=== PATIENT | male | born 1950 | race Caucasian/White ===

== ENCOUNTER 2017-12-08 13:28 | Inpatient (IN) | payer MEDICARE, BC, OTHER ==
[2017-12-08] MEDS ORDERED: SODIUM CHLORIDE 0.9% 1,000 ML IV STA ×2 (13:42→16:02)
[2017-12-08] MEDS ORDERED: ONDANSETRON 4 MG/2 ML VIAL IVP STA (13:42)
--- NOTE | 2017-12-08 13:51 | ED ---
General Adult HPI <Humble Forbes - Last Filed: 12/08/17 16:06> - General Source: patient, RN notes reviewed Mode of arrival: ambulatory Limitations: no limitations <Donaldo Nuñez - Last Filed: 12/08/17 17:54> - General Chief complaint: Abdominal Pain Stated complaint: Abd pain Time Seen by Provider: 12/08/17 13:36 - History of Present Illness Initial comments: Patient is 66-year-old male who presents emergency room today with a chief complaint of abdominal pain over the last 3 days. He does admit that he began having symptoms of nausea vomiting diarrhea this morning. Patient does admit to cramping type pain in the abdomen like comes and goes. Patient denies any other complaints or symptoms. Patient denies any recent fever, chills, shortness of breath, chest pain, back pain, numbness or tingling, dysuria or hematuria, constipation, headaches or visual changes, or any other complaints. ( Donaldo Nuñez) - Related Data Home Medications Medication Instructions Recorded Confirmed Atorvastatin [Lipitor] 10 mg PO DAILY 12/08/17 12/08/17 Liraglutide [Victoza 3-Jamey] 1.8 mg SQ DAILY 12/08/17 12/08/17 Losartan Potassium [Cozaar] 25 mg PO DAILY 12/08/17 12/08/17 Omeprazole 20 mg PO DAILY 12/08/17 12/08/17 Repaglinide [Prandin] 0.5 mg PO BID@1200,1800 12/08/17 12/08/17 metFORMIN HCL [Glucophage] 1,000 mg PO BID 12/08/17 12/08/17 Allergies Allergy/AdvReac Type Severity Reaction Status Date / Time clarithromycin [From Biaxin] Allergy Unknown Verified 12/08/17 13:57 Sulfa (Sulfonamide Allergy Unknown Verified 12/08/17 13:57 Antibiotics) Review of Systems ROS Other: All systems not noted in ROS Statement are negative. <Humble Forbes - Last Filed: 12/08/17 16:06> ROS Other: All systems not noted in ROS Statement are negative. <Donaldo Nuñez - Last Filed: 12/08/17 17:54> ROS Statement: Those systems with pertinent positive or pertinent negative responses have been documented in the HPI. Past Medical History Past Medical History: Diabetes Mellitus Additional Past Medical History / Comment(s): back pain History of Any Multi-Drug Resistant Organisms: None Reported Past Psychological History: No Psychological Hx Reported Smoking Status: Never smoker Past Alcohol Use History: None Reported Past Drug Use History: None Reported <NuñezDonaldo - Last Filed: 12/08/17 17:54> General Exam <Humble Forbes - Last Filed: 12/08/17 16:06> Limitations: no limitations <Taniya Nuñezony - Last Filed: 12/08/17 17:54> - General Exam Comments Initial Comments: General: The patient is awake and alert, in no distress, and does not appear acutely ill. Eye: Pupils are equal, round and reactive to light, extra-ocular movements are intact. No nystagmus. There is normal conjunctiva bilaterally. No signs of icterus. Ears, nose, mouth and throat: There are moist mucous membranes and no oral lesions. Neck: The neck is supple, there is no tenderness or JVD. Cardiovascular: There is a regular rate and rhythm. No murmur, rub or gallop is appreciated. Respiratory: Lungs are clear to auscultation, respirations are non-labored, breath sounds are equal. No wheezes, stridor, rales, or rhonchi. Gastrointestinal: Normal appearance of the abdomen. Normal bowel sounds. Abdomen soft on palpation per patient does have tenderness greatest in the upper quadrants and epigastric. Musculoskeletal: Normal ROM, no tenderness. Strength 5/5. Sensation intact. Pulses equal bilaterally 2+. Neurological: A&O x 3. CN II-XII intact, There are no obvious motor or sensory deficits. Coordination appears grossly intact. Speech is normal. Skin: Skin is warm and dry and no rashes or lesions are noted. Psychiatric: Cooperative, appropriate mood & affect, normal judgment. (Donaldo Nuñez) Course <Humble Forbes - Last Filed: 12/08/17 16:06> <Donaldo Nuñez - Last Filed: 12/08/17 17:54> Vital Signs 12/08/17 12/08/17 12/08/17 13:32 14:11 15:18 Temperature 98.0 F Pulse Rate 72 124 H 112 H Respiratory 20 18 18 Rate Blood Pressure 92/56 96/70 121/74 O2 Sat by Pulse 94 L 98 97 Oximetry 12/08/17 12/08/17 12/08/17 15:42 16:42 17:26 Temperature Pulse Rate 110 H 107 H 104 H Respiratory 18 18 16 Rate Blood Pressure 115/70 102/65 110/69 O2 Sat by Pulse 97 95 96 Oximetry - Reevaluation(s) Reevaluation #1: 12/08/17 16:06 I did personally do a [id number] evaluation the patient did discuss findings with the patient and his . Patient does demonstrate acute renal failure with enterocolitis. He does have a marked leukocytosis. He will be admitted for evaluation and IV hydration (Humble Forbes) Reevaluation #2: 12/08/17 17:53 Patient's repeat potassium was elevated at 6.9. Given dose of Kayexalate and albuterol here in emergency room. Patient is asymptomatic. EKG showing no changes. Patient has had a total of 2 L of fluid. Currently on antibiotics of Levaquin and Flagyl to cover for infection. (Donaldo Nuñez) EKG Findings - EKG Comments: EKG Findings:: EKG performed at 1732: Shows sinus tachycardia at 105 bpm. [place] interval 174. QRS 76. QT/QTC 324/428. No peaked T waves. No acute ST changes. Reviewed with attending physician Dr. Forbes <Donaldo Nuñez - Last Filed: 12/08/17 17:54> Medical Decision Making - Lab Data Result diagrams: 12/08/17 14:05 12/08/17 14:05 <Humble Forbes - Last Filed: 12/08/17 16:06> - Lab Data Result diagrams: 12/08/17 14:05 12/08/17 16:51 <Donaldo Nuñez - Last Filed: 12/08/17 17:54> - Medical Decision Making Patient's positive and reviewed shows 20,000 white count. Does show acute renal failure. No previous labs are available for review to compare. Patient currently resting comfortably at this time. Patient's CAT scan does show evidence for gastroenteritis. Results were discussed with the patient. Patient will be admitted to the hospital started on antibiotics cover for infection while cultures are pending. Patient will be continued on fluids for acute renal failure. Patient is aware plan states understanding. (Donaldo Nuñez) - Lab Data Lab Results 12/08/17 12/08/17 12/08/17 Range/Units 14:05 14:05 14:05 WBC 28.0 H* (3.8-10.6) k/uL RBC 5.24 (4.30-5.90) m/uL Hgb 16.0 (13.0-17.5) gm/dL Hct 48.6 (39.0-53.0) % MCV 92.8 (80.0-100.0) fL MCH 30.6 (25.0-35.0) pg MCHC 33.0 (31.0-37.0) g/dL RDW 13.7 (11.5-15.5) % Plt Count 285 (150-450) k/uL Neutrophils % 91 % Lymphocytes % 3 % Monocytes % 5 % Eosinophils % 1 % Basophils % 0 % Neutrophils # 25.5 H (1.3-7.7) k/uL Lymphocytes # 0.7 L (1.0-4.8) k/uL Monocytes # 1.3 H (0-1.0) k/uL Eosinophils # 0.1 (0-0.7) k/uL Basophils # 0.1 (0-0.2) k/uL PT (9.0-12.0) sec INR (<1.2) APTT (22.0-30.0) sec Sodium 141 (137-145) mmol/L Potassium 6.1 H (3.5-5.1) mmol/L Chloride 104 (98-107) mmol/L Carbon Dioxide 19 L (22-30) mmol/L Anion Gap 18 mmol/L BUN 55 H (9-20) mg/dL Creatinine 2.50 H (0.66-1.25) mg/dL Est GFR (CKD-EPI)AfAm 30 (>60 ml/min/1.73 sqM) Est GFR (CKD-EPI)NonAf 26 (>60 ml/min/1.73 sqM) Glucose 327 H (74-99) mg/dL Calcium 10.2 (8.4-10.2) mg/dL Total Bilirubin 1.0 (0.2-1.3) mg/dL AST 44 (17-59) U/L ALT 54 (21-72) U/L Alkaline Phosphatase 124 (38-126) U/L Total Creatine Kinase 53 L (55-170) U/L CK-MB (CK-2) 1.6 (0.0-2.4) ng/mL CK-MB (CK-2) Rel Index 3.0 Troponin I <0.012 (0.000-0.034) ng/mL Total Protein 8.5 H (6.3-8.2) g/dL Albumin 4.6 (3.5-5.0) g/dL Amylase 125 H (30-110) U/L Lipase 161 (23-300) U/L Urine Color Urine Appearance (Clear) Urine pH (5.0-8.0) Ur Specific [place] (1.001-1.035) Urine Protein (Negative) Urine Glucose (UA) (Negative) Urine Ketones (Negative) Urine Blood (Negative) Urine Nitrite (Negative) Urine Bilirubin (Negative) Urine Urobilinogen (<2.0) mg/dL Ur Leukocyte Esterase (Negative) Urine RBC (0-5) /hpf Urine WBC (0-5) /hpf Urine Bacteria (None) /hpf Hyaline Casts (0-2) /lpf Granular Casts (0) /lpf Urine Mucus (None) /hpf Urine Sperm (None) /hpf 12/08/17 12/08/17 Range/Units 14:05 15:00 WBC (3.8-10.6) k/uL RBC (4.30-5.90) m/uL Hgb (13.0-17.5) gm/dL Hct (39.0-53.0) % MCV (80.0-100.0) fL MCH (25.0-35.0) pg MCHC (31.0-37.0) g/dL RDW (11.5-15.5) % Plt Count (150-450) k/uL Neutrophils % % Lymphocytes % % Monocytes % % Eosinophils % % Basophils % % Neutrophils # (1.3-7.7) k/uL Lymphocytes # (1.0-4.8) k/uL Monocytes # (0-1.0) k/uL Eosinophils # (0-0.7) k/uL Basophils # (0-0.2) k/uL PT 11.4 (9.0-12.0) sec INR 1.2 H (<1.2) APTT 22.5 (22.0-30.0) sec Sodium (137-145) mmol/L Potassium (3.5-5.1) mmol/L Chloride (98-107) mmol/L Carbon Dioxide (22-30) mmol/L Anion Gap mmol/L BUN (9-20) mg/dL Creatinine (0.66-1.25) mg/dL Est GFR (CKD-EPI)AfAm (>60 ml/min/1.73 sqM) Est GFR (CKD-EPI)NonAf (>60 ml/min/1.73 sqM) Glucose (74-99) mg/dL Calcium (8.4-10.2) mg/dL Total Bilirubin (0.2-1.3) mg/dL AST (17-59) U/L ALT (21-72) U/L Alkaline Phosphatase (38-126) U/L Total Creatine Kinase (55-170) U/L CK-MB (CK-2) (0.0-2.4) ng/mL CK-MB (CK-2) Rel Index Troponin I (0.000-0.034) ng/mL Total Protein (6.3-8.2) g/dL Albumin (3.5-5.0) g/dL Amylase (30-110) U/L Lipase (23-300) U/L Urine Color Dark Yellow Urine Appearance Cloudy (Clear) Urine pH 5.0 (5.0-8.0) Ur Specific [place] 1.020 (1.001-1.035) Urine Protein 1+ H (Negative) Urine Glucose (UA) Trace H (Negative) Urine Ketones Negative (Negative) Urine Blood Negative (Negative) Urine Nitrite Negative (Negative) Urine Bilirubin 1+ H (Negative) Urine Urobilinogen 2.0 (<2.0) mg/dL Ur Leukocyte Esterase Negative (Negative) Urine RBC 3 (0-5) /hpf Urine WBC 3 (0-5) /hpf Urine Bacteria Occasional H (None) /hpf Hyaline Casts 86 H (0-2) /lpf Granular Casts 10 (0) /lpf Urine Mucus Rare H (None) /hpf Urine Sperm Rare (None) /hpf Disposition <Hubmle Forbes - Last Filed: 12/08/17 16:06> Time of Disposition: 16:04 <Donaldo Nuñez - Last Filed: 12/08/17 17:54> Clinical Impression: ARF (acute renal failure), Gastroenteritis, Leukocytosis Disposition: ADMITTED IP TO THIS HOSP
[2017-12-08] MEDS: SODIUM CHLORIDE 0.9% 1,000 ML IV STA ×2 (14:09→17:24)
[2017-12-08 14:27] LABS: INR 1.2 (<1.2); Partial Thromboplastin Time 22.5 sec (22.0-30.0); Prothrombin Time 11.4 sec (9.0-12.0)
[2017-12-08 14:37] LABS: Basophils # (A) 0.1 k/uL (0-0.2); Basophils % (A) 0 %; Eosinophils # (A) 0.1 k/uL (0-0.7); Eosinophils % (A) 1 %; HCT 48.6 % (39.0-53.0); Lymphocytes # (A) 0.7 k/uL (1.0-4.8); Lymphocytes % (A) 3 %; MCH 30.6 pg (25.0-35.0); MCV 92.8 fL (80.0-100.0); Mean Platelet Volume 9.2; Monocytes # (A) 1.3 k/uL (0-1.0); Monocytes % (A) 5 %; Neutrophils # (A) 25.5 k/uL (1.3-7.7); Neutrophils % (A) 91 %; Platelet Count 285 k/uL (150-450); RBC 5.24 m/uL (4.30-5.90); RDW 13.7 % (11.5-15.5)
[2017-12-08] MEDS ORDERED: RX INFO: IV CONTRAST WAS GIVEN 1 EACH MISC MISCELLANE PRN (14:43)
[2017-12-08 14:48] LABS: Albumin 4.6 g/dL (3.5-5.0); Calcium 10.2 mg/dL (8.4-10.2); Creatine Kinase 53 U/L (55-170); Total Protein 8.5 g/dL (6.3-8.2)
[2017-12-08 14:49] LABS: Potassium 6.1 mmol/L (3.5-5.1)
--- NOTE | 2017-12-08 14:57 | XR ---
EXAMINATION TYPE: XR chest 2V DATE OF EXAM: 12/08/2017 COMPARISON: 10/09/2013 HISTORY: Shortness of breath TECHNIQUE: Frontal and lateral views of the chest are obtained. FINDINGS: Scattered senescent parenchymal changes noted. No evidence for infiltrate. No evidence for atelectasis. Heart size is stable. Mediastinal structures are stable and grossly unremarkable. No evidence for hilar prominence. Degenerative changes dorsal spine. IMPRESSION: 1. No evidence for acute pulmonary disease.
--- NOTE | 2017-12-08 14:58 | XR ---
EXAMINATION TYPE: XR KUB DATE OF EXAM: 12/08/2017 COMPARISON: NONE HISTORY: Pain TECHNIQUE: Single supine KUB image of the abdomen is obtained FINDINGS: Small bowel demonstrates no evidence for dilatation or air fluid levels. Gas and fecal material is seen in non-distended colon. No convincing evidence for pneumoperitoneum. No unusual calcifications. The lung bases are clear. The osseous structures are intact. IMPRESSION: 1. Overall nonobstructive bowel gas pattern.
[2017-12-08 15:00] LABS: Creatine Kinase MB 1.6 ng/mL (0.0-2.4); Troponin I <0.012 ng/mL (0.000-0.034)
--- NOTE | 2017-12-08 15:18 | CT ---
EXAMINATION TYPE: CT abdomen pelvis wo con DATE OF EXAM: 12/08/2017 COMPARISON: NONE HISTORY: Abdominal pain and vomiting CT DLP: 910.5 mGycm Examination of the solid and hollow viscera is limited given the lack of contrast. FINDINGS: LUNG BASES: No evidence for nodule. No evidence for infiltrate. LIVER/GB: Cholecystectomy clips noted. No space-occupying hepatic lesion. PANCREAS: No pancreatic mass identified. No inflammatory process seen. SPLEEN: No evidence for splenomegaly. No intrasplenic lesions seen. ADRENALS: No adrenal nodules identified. No evidence for thickening. KIDNEYS: No evidence for renal mass. No nephrolithiasis. No hydronephrosis. BOWEL: Appendix has a normal appearance. There is fluid distention of the stomach, small bowel and la rge bowel suspicious for gastroenterocolitis. No evidence for obstructive change at this time. Sigmoi d diverticulosis without diverticulitis. No evidence of perforation or abscess. Lymph nodes: No evidence for adenopathy greater than 1 cm. Abdominal aorta: Atheromatous changes seen. No evidence for aneurysm. Genital organs: Prostate calcifications identified. Other: No significant abnormality. IMPRESSION: 1. Fluid distention of the stomach, small bowel and large bowel suspicious for gastroenterocolitis. N o obstructive changes seen.
[2017-12-08 15:49] LABS: Appearance,Urine Cloudy (Clear); Bacteria,Urine Occasional /hpf; Bilirubin,Urine 1+ (Negative); Blood,Urine Negative (Negative); Color,Urine Dark Yellow; Glucose,Urine (UA) Trace (Negative); Granular Casts,Urine 10 /lpf (0); Hyaline Casts,Urine 86 /lpf (0-2); Ketones,Urine Negative (Negative); Leukocyte Esterase,Urine Negative (Negative); Mucus,Urine Rare /hpf; Nitrite,Urine Negative (Negative); Protein,Urine 1+ (Negative); RBC,Urine 3 /hpf (0-5); Sperm,Urine Rare /hpf; WBC,Urine 3 /hpf (0-5)
[2017-12-08] MEDS ORDERED: metroNIDAZOLE-NS PMX 500 MG in SALINE 1 100ML.BAG IVPB STA (16:01)
[2017-12-08] MEDS ORDERED: LEVOFLOXACIN 500MG-D5W PMX 500 MG in DEXTROSE/WATER 1 100ML.BAG IVPB STA (16:01)
[2017-12-08] MEDS ORDERED: ACETAMINOPHEN TAB 325 MG TAB PO PRN (16:09)
[2017-12-08] MEDS ORDERED: MORPHINE SULFATE 4 MG/ML SYRINGE IV PRN (16:09)
[2017-12-08] MEDS ORDERED: NALOXONE 0.4 MG/ML 1 ML VIAL IV PRN (16:09)
[2017-12-08] MEDS ORDERED: ONDANSETRON 4 MG/2 ML VIAL IVP PRN (16:09)
[2017-12-08] MEDS ORDERED: LEVOFLOXACIN 500MG-D5W PMX 500 MG in DEXTROSE/WATER 1 100ML.BAG IVPB SCH (16:15)
[2017-12-08] MEDS ORDERED: SODIUM POLYSTYRENE SULFONATE 15 GM/60 ML BOTTLE PO STA (17:28)
[2017-12-08] MEDS ORDERED: ALBUTEROL NEBULIZED 2.5 MG/3 ML INHALATION STA ×2 (17:50→23:45)
[2017-12-08] MEDS ORDERED: MORPHINE SULFATE/PF 10MG/10ML VL IV PRN (22:19)
[2017-12-08 22:24] LABS: Glucose,Whole Blood 141 mg/dL (75-99)
[2017-12-08] MEDS ORDERED: traMADol 50 MG TAB PO PRN (22:43)
[2017-12-08] MEDS ORDERED: ALPRAZolam 0.25 MG TAB PO PRN (22:44)
[2017-12-08] MEDS ORDERED: TEMAZEPAM 15 MG CAP PO PRN (22:44)
[2017-12-08 22:55] LABS: Calcium 8.2 mg/dL (8.4-10.2)
[2017-12-08] MEDS ORDERED: DEXTROSE 50%-WATER 50 ML SYRINGE IVP STA (23:42)
[2017-12-08] MEDS ORDERED: FUROSEMIDE 10 MG/ML 4 ML VIAL IV STA (23:42)
[2017-12-08] MEDS ORDERED: INSULIN REGULAR 100 UNIT/ML VIAL IV ONE (23:42)
[2017-12-08] MEDS ORDERED: CALCIUM GLUCONATE 1,000 MG in SODIUM CHLORIDE 0.9% 100 ML IVPB ONE (23:43)
[2017-12-09] MEDS: PANTOPRAZOLE 40 MG/10 ML VIAL IVP SCH ×2 (00:15→08:21)
[2017-12-09] MEDS: metroNIDAZOLE-NS PMX 500 MG in SALINE 1 100ML.BAG IVPB SCH ×4 (01:05→23:36)
[2017-12-09 01:41] LABS: Glucose,Whole Blood 57 mg/dL (75-99)
[2017-12-09] MEDS ORDERED: DEXTROSE 50%-WATER 50 ML SYRINGE IVP ONE (01:41)
[2017-12-09] MEDS ORDERED: DEXTROSE 50%-WATER 50 ML SYRINGE IVP STA (01:48)
[2017-12-09 02:10] LABS: Glucose,Whole Blood 140 mg/dL (75-99)
[2017-12-09 03:37] LABS: Basophils % (A) 0 %; Eosinophils # (A) 0.1 k/uL (0-0.7); Eosinophils % (A) 1 %; HCT 38.2 % (39.0-53.0); Lymphocytes # (A) 0.9 k/uL (1.0-4.8); Lymphocytes % (A) 7 %; MCHC 32.6 g/dL (31.0-37.0); MCV 91.9 fL (80.0-100.0); Mean Platelet Volume 8.3; Monocytes # (A) 0.6 k/uL (0-1.0); Monocytes % (A) 5 %; Neutrophils # (A) 11.5 k/uL (1.3-7.7); Neutrophils % (A) 87 %; Platelet Count 183 k/uL (150-450); RBC 4.15 m/uL (4.30-5.90); RDW 13.7 % (11.5-15.5); WBC 13.3 k/uL (3.8-10.6)
[2017-12-09 03:42] LABS: HGB 12.4 gm/dL (13.0-17.5)
[2017-12-09 03:47] LABS: Albumin 3.4 g/dL (3.5-5.0); Calcium 8.2 mg/dL (8.4-10.2); Potassium 5.8 mmol/L (3.5-5.1); Total Bilirubin 0.5 mg/dL (0.2-1.3); Total Protein 6.3 g/dL (6.3-8.2)
[2017-12-09 05:11] VITALS: RESP 16
[2017-12-09 06:00] LABS: Glucose,Whole Blood 123 mg/dL (75-99)
--- NOTE | 2017-12-09 07:02 | HP ---
HISTORY AND PHYSICAL CHIEF COMPLAINTS: Abdominal pain and as well as vomiting and hyperkalemia. HISTORY OF PRESENT ILLNESS: This 66-year-old gentleman with a past medical history of multiple medical problems including asthma, CVA, diabetes, GERD, hypertension, hyperlipidemia, DJD, history of back pain, cholecystectomy being followed by Dr. Gomez in the outpatient setting , not feeling well over the past several days. Patient had abdominal discomfort and yesterday the patient had significant vomiting and the patient vomited several hours this morning and the patient came to [facility] for evaluation and treatment. The initial evaluation showed potassium 6.9, and white count is elevated 28, and the patient admitted for evaluation treatment. Plasma lactic acid also elevated at 2.9. The UA shows some hyaline casts and no evidence of infection is noted. The chest x-ray was reported as showing no evidence of acute pulmonary lesions. CT scan of the abdomen and pelvis was reviewed and showed fluid distention of the stomach and small bowel, large bowel suspicious gastroenterocolitis. No obstructive changes are noted. There is no history of fever, rigors or chills at this time. PAST MEDICAL HISTORY: Asthma, CVA, TIA, diabetes mellitus, GERD, hypertension, hyperlipidemia, DJD, sleep apnea, cholecystectomy. MEDICATIONS: 1. Vitamin D 3000. 2. Ultram 50 mg q.6 p.r.n. 3. Voltaren 50 mg p.o. b.i.d. 4. Multivitamins 1 p.o. daily. 5. Prandin 0.5 mg b.i.d. 6. Prilosec 20 mg daily. 7. Victoza 1.8 subcu daily. 8. Lipitor 10 mg daily. 9. Glucophage 1000 mg p.o. b.i.d. 10.Cozaar 25 mg p.o. daily. ALLERGIES: CLARITHROMYCIN, SULFA. FAMILY HISTORY: History of degenerative joint disease. SOCIAL HISTORY: History of alcohol occasional. Previous history of smoking. REVIEW OF SYSTEMS: ENT: No diminished hearing or vision. CARDIOVASCULAR: No angina. RESPIRATORY: No cough or hemoptysis. GI: As mentioned earlier. GENITOURINARY: No dysuria. NERVOUS SYSTEM: No numbness, weakness. ALLERGY/IMMUNOLOGY: As mentioned earlier. MUSCULOSKELETAL: As mentioned earlier. HEMATOLOGY/ONCOLOGY: No history of anemia. ENDOCRINE: As mentioned earlier. CONSTITUTIONAL: As mentioned earlier. DERMATOLOGY: Negative. RHEUMATOLOGY: Negative. PSYCHIATRY: As mentioned earlier. PHYSICAL EXAMINATION: Alert, oriented x3. Pulse 90, blood pressure 120/70, respiration 18, temperature 98.2, pulse ox 97% on room air. HEENT: Conjunctivae normal. Oral mucosa moist. Neck is no jugular venous distention. No carotid bruit. No lymph node enlargement. CARDIOVASCULAR: S1, S2. No S3, no S4. RESPIRATORY: Breath sounds diminished in the bases. A few scattered rhonchi. No crackles. ABDOMEN: Soft, obese, mild diffuse discomfort. No guarding, no rigidity. No mass palpable. LEGS: No edema, no swelling. NERVOUS SYSTEM: Higher functions as mentioned earlier. Moves all 4 limbs. Cranial nerves 2 through 12 grossly intact. No focal motor sensory deficit. LYMPHATICS: No lymphadenopathy in the neck, axillae, groin. SKIN: No ulcer, rash or bleeding. LABS: WBC 28, hemoglobin 16. Sodium 140, potassium 6.1, creatinine is 2.50, plasma lactic acid 3.9. ASSESSMENT: 1. Severe hyperkalemia with acute renal failure possibly prerenal acute tubular necrosis. 2. Elevated plasma lactic acid, possibly secondary to dehydration. 3. Increased WBC. Rule out sepsis. 4. Possible acute gastroenteritis. 5. Cerebrovascular accident, transient ischemic attack. 6. Diabetes mellitus type 2. 7. Gastroesophageal reflux disease. 8. History of asthma. 9. Hypertension. 10.Hyperlipidemia. 11.History of degenerative joint disease. 12.History of sleep apnea. 13.History of sciatic pain. 14.History of cholecystectomy. RECOMMENDATIONS AND DISCUSSION: This 66-year-old gentleman who presented with multiple complex medical issues, we will monitor the patient closely. Continue the current management and symptomatic treatment. Otherwise Kayexalate has been given. I would also recommend the patient to have repeat potassium and after evaluation and a low potassium diet, if the potassium high I would recommend regimen too and repeat Kayexalate as well. Otherwise continue to monitor. Prognosis guarded. Avoid hyperkalemic agents. Monitor blood sugars closely. See orders for details. Guarded prognosis. Further recommendations to follow. Copy of dictation forwarded to Dr. Gomez who is the primary physician. Will hold the metformin also at this time as well as losartan. MMODL / IJN: [id number] / [facility]
[2017-12-09] MEDS: ATORVASTATIN 10 MG TAB PO SCH (08:21)
[2017-12-09] MEDS: MULTIVITAMINS, THERA 1 EACH TAB PO SCH (08:21)
[2017-12-09] MEDS: PANTOPRAZOLE 40 MG TABLET PO SCH (08:21)
[2017-12-09] MEDS: HEPARIN SODIUM,PORCINE 5,000 UNIT/ML 1 ML VIAL SQ SCH ×2 (08:22→19:35)
[2017-12-09 11:38] LABS: Glucose,Whole Blood 120 mg/dL (75-99)
[2017-12-09 12:29] VITALS: BMI 30.3
--- NOTE | 2017-12-09 14:02 | CONS ---
CONSULTATION REASON FOR CONSULT: Renal failure. DATE OF CONSULTATION: 12/09/2017. HISTORY OF PRESENT ILLNESS: Patient is a 66-year-old male who is admitted to the hospital with complaints of abdominal pain. He did have some nausea and vomiting and diarrhea as well. The patient states that he is feeling better. He is currently maintained on IV fluids. He was maintained on angiotensin receptor blockers prior to admission. The patient denies any previous history of kidney diseases. His blood pressure has been low with systolic at 98 mmHg. The patient received IV fluids initially. Now he is off of IV fluids. He was also hyperkalemic with a potassium of 5.8, which is now down to 5.2 mg/dL. Angiotensin receptor blockers are currently on hold. Initial potassium was 6.9 and 7.0 mEq/L. The patient is voiding on his own. PAST MEDICAL HISTORY: Hypertension, degenerative joint disease, dyslipidemia, type 2 diabetes. PAST SURGICAL HISTORY: None. SOCIAL HISTORY: Negative for smoking, drug abuse or alcohol abuse. MEDICATIONS: Prior to admission included Glucophage, Prandin, Cozaar, omeprazole, Lipitor, Victoza. ALLERGIES: Include BIAXIN and SULFA. REVIEW OF SYSTEMS: As per HPI. Other systems negative. EXAMINATION: Patient is comfortable, awake, alert, oriented x3, not in any acute distress. Blood pressure is 122/72, heart rate 107 per minute. He is afebrile. Examination of the heart: S1, S2. Examination lungs: Bilateral breath sounds are heard. Abdomen is soft, nontender. Examination lower extremities shows no evidence of edema. MANAGER FLOOR exam is grossly intact. LAB: Show sodium of 137, potassium 5.8, chloride 107, BUN 56, serum creatinine 2.0. Serum potassium is down to 5.2. Hemoglobin was at 12.4 g/dL. The iron chest x-ray from yesterday shows no acute pulmonary process. ASSESSMENT: 1. Acute kidney injury secondary to hypotension hypoperfusion and volume depletion, currently status post IV fluids. The patient has good urine output. We will repeat labs in a.m. No evidence of obstructive uropathy noted on the CAT scan. 2. Nausea, vomiting, diarrhea secondary to gastroenteritis, possibly viral, seems to be improving. 3. Rule out chronic kidney disease. UA did show proteinuria. The patient may have underlying diabetic kidney disease. Previous creatinine is not available for comparison. 4. Hypertension. Blood pressure currently on the lower side. Continue off of antihypertensive medications. 5. Hyperkalemia associated with acute kidney injury, use of angiotensin receptor blockers and NSAIDs, currently improved. Hold off on CAIT inhibitors or angiotensin receptor blockers. PLAN: Avoid any further contrast administration given the renal failure. I will continue with gentle IV hydration. Repeat labs in a.m. and continue to hold off on angiotensin receptor blockers. Thank you for this consultation. We will continue to follow the patient with you during his hospitalization. MMRAKANL / IJN: [id number] /
[2017-12-09 16:16] LABS: Glucose,Whole Blood 150 mg/dL (75-99)
[2017-12-09] MEDS: REPAGLINIDE 0.5 MG PO SCH (16:52)
[2017-12-09] MEDS ORDERED: LEVOFLOXACIN 500MG-D5W PMX 500 MG in DEXTROSE/WATER 1 100ML.BAG IVPB SCH (18:00)
--- NOTE | 2017-12-09 18:44 | PN ---
PROGRESS NOTE DATE OF SERVICE: 12/09/2017. This 66-year-old gentleman admitted with abdominal pain as well as vomiting and hyperkalemia, possibly acute renal failure secondary to prerenal factors. The patient was given multiple medications for hyperkalemia. Nephrology is following the patient closely. Patient also had CAT scan, which showed distention stomach, small bowel and large bowel suspicious for acute gastroenteritis. PAST MEDICAL HISTORY: Reviewed. REVIEW OF SYSTEMS: CARDIOVASCULAR: No angina or palpitations. RESPIRATORY: As mentioned earlier. GI: As mentioned earlier. : As mentioned earlier. MEDICATIONS: The current medications are reviewed and include: 1. Tylenol 650 q.6 p.r.n. 2. Xanax 0.25 t.i.d. 3. Lipitor 10 mg daily. 4. Heparin 5000 subcu b.i.d. 5. Levaquin 500 mg IV daily. 6. Flagyl 500 mg IV q.8. 7. Morphine sulfate 4 mg IV q.4. 8. Multivitamins 1 p.o. daily. 9. Narcan 0.2 q.2 p.r.n. 10.Repaglinide 0.5 mg b.i.d. 11.Zofran 4 mg IV q.8. 12.Protonix 40 mg IV b.i.d. 13.Restoril 15 mg q.h.s. 14.Ultram 50 mg q.6 p.r.n. PHYSICAL EXAMINATION: The patient is alert, oriented x3. The pulse is 107, blood pressure 122/72, respiration 16, temp is normal, pulse ox 96% on room air. HEENT: Conjunctivae normal. Oral mucosa moist. Neck is no jugular venous distention. No carotid bruit. No lymph node enlargement. CARDIOVASCULAR: S1 and S2 muffled. RESPIRATORY: Breath sounds diminished at the bases. No rhonchi, no crackles. ABDOMEN: Soft, nontender. No mass palpable. LEGS: No edema, no swelling. NEVOUS SYSTEM: Higher functions as mentioned earlier. Moves all 4 limbs. No focal deficits. LYMPHATICS: No lymphadenopathy of the neck, axillae or groin. SKIN: No ulcer, rash or bleeding. LABS: WBC 13.3, hemoglobin 12.4. Sodium 137, potassium 5.8. ASSESSMENT: 1. Severe hyperkalemia with acute renal failure possibly prerenal acute tubular necrosis. 2. Elevated plasma lactic acid, possibly secondary to dehydration. 3. Increased WBC, improving. 4. Possible acute gastroenteritis. 5. Cerebrovascular accident, transient ischemic attack. 6. Diabetes mellitus type 2. 7. Gastroesophageal reflux disease. 8. History of asthma. 9. Hypertension. 10.Hyperlipidemia. 11.History of degenerative joint disease. 12.History of sleep apnea. 13.History of sciatic pain. 14.History of cholecystectomy. RECOMMENDATIONS AND DISCUSSION: Recommend to continue current medications, continue symptomatic treatment. The patient's potassium has improved to 5.2 from 7. Creatinine is 2, continue the IV fluids. Nephrology evaluation. Renal ultrasound. Influenza is negative. Otherwise cultures are also negative so far. Guarded prognosis because of multiple complex medical issues. Further recommendations to follow. MMODL / IJN: [id number] /
[2017-12-09 19:15] LABS: Glucose,Whole Blood 133 mg/dL (75-99)
[2017-12-09] MEDS: SODIUM CHLORIDE 0.9% 1,000 ML IV SCH (19:35)
[2017-12-09 20:56] LABS: Glucose,Whole Blood 149 mg/dL (75-99)
[2017-12-10] MEDS: SODIUM CHLORIDE 0.9% 1,000 ML IV SCH (06:33)
[2017-12-10 07:10] VITALS: BP 146/83; PULSE 98; TEMP 98
[2017-12-10 07:24] LABS: Glucose,Whole Blood 103 mg/dL (75-99)
[2017-12-10] MEDS: metroNIDAZOLE-NS PMX 500 MG in SALINE 1 100ML.BAG IVPB SCH (07:31)
[2017-12-10] MEDS: PANTOPRAZOLE 40 MG TABLET PO SCH (07:31)
[2017-12-10] MEDS: ATORVASTATIN 10 MG TAB PO SCH (07:31)
[2017-12-10] MEDS: HEPARIN SODIUM,PORCINE 5,000 UNIT/ML 1 ML VIAL SQ SCH (07:31)
[2017-12-10] MEDS: MULTIVITAMINS, THERA 1 EACH TAB PO SCH (07:31)
[2017-12-10 08:23] LABS: Basophils % (A) 0 %; Eosinophils # (A) 0.1 k/uL (0-0.7); Eosinophils % (A) 1 %; HGB 12.4 gm/dL (13.0-17.5); Lymphocytes # (A) 1.5 k/uL (1.0-4.8); Lymphocytes % (A) 16 %; MCH 30.3 pg (25.0-35.0); MCHC 33.4 g/dL (31.0-37.0); MCV 90.6 fL (80.0-100.0); Mean Platelet Volume 8.8; Monocytes # (A) 0.5 k/uL (0-1.0); Monocytes % (A) 5 %; Neutrophils # (A) 7.2 k/uL (1.3-7.7); Neutrophils % (A) 76 %; Platelet Count 181 k/uL (150-450); RBC 4.09 m/uL (4.30-5.90); RDW 13.7 % (11.5-15.5); WBC 9.4 k/uL (3.8-10.6)
[2017-12-10 08:36] LABS: Calcium 8.3 mg/dL (8.4-10.2); Potassium 4.9 mmol/L (3.5-5.1)
[2017-12-10 12:49] LABS: Glucose,Whole Blood 143 mg/dL (75-99)
[2017-12-10] MEDS: REPAGLINIDE 0.5 MG PO SCH (13:35)
--- NOTE | 2017-12-10 14:03 | PN ---
PROGRESS NOTE DATE OF SERVICE: 12/10/2017. HISTORY: The patient is seen for followup for acute kidney injury. His renal function has improved with creatinine now down to 1.18 from 2.0 yesterday. Patient is maintained on IV fluids. He denies any chest pain, shortness of breath, nausea, vomiting. PHYSICAL EXAMINATION: Blood pressure is 146/83, heart rate 88 per minute. He is afebrile. Examination of the heart, S1, S2. Examination lungs bilateral breath sounds are heard. Abdomen is soft, nontender. Exam of lower extremities shows no evidence of edema. TOW CAR DRIVER exam is grossly intact. LABS: Serum creatinine 1.18, sodium 138, potassium 4.9. ASSESSMENT: 1. Acute kidney injury, prerenal, currently improved with IV hydration. We can discontinue the IV fluids. The patient is stable for discharge from Nephrology standpoint. 2. Nausea, vomiting, and diarrhea, possibly secondary to a viral gastroenteritis. 3. Hyperkalemia on admission, associated with use of angiotensin receptor blockers and NSAIDs, currently improved. PLAN: Patient is stable for discharge. Monitor labs closely if he is restarted on CAIT inhibitors or angiotensin receptor blockers. Blood pressure is currently slightly on the higher side, this will need to be monitored as outpatient. MMODL / IJN: [id number] /
[2017-12-10] MEDS ORDERED: LEVOFLOXACIN 250 MG TAB PO SCH (18:00)
--- NOTE | 2017-12-11 09:37 | DS ---
DISCHARGE SUMMARY FINAL DIAGNOSES: 1. Severe hyperkalemia with acute renal failure, possibly prerenal acute tubular necrosis. 2. Elevated plasma lactic acidosis, possibly secondary to dehydration. 3. Increased WBC, improved. 4. Possible acute gastroenteritis. 5. Cerebrovascular accident/transient ischemic attack. 6. Diabetes type 2. 7. Gastroesophageal reflux disease. 8. Asthma. 9. Hypertension. 10.Hyperlipidemia. 11.Degenerative joint disease. 12.Sleep apnea. 13.Sciatic pain. 14.History of cholecystectomy. DISCHARGE CONDITION: The patient will be discharged in stable condition with guarded prognosis. Total time taken 35 minutes. HISTORY OF PRESENT ILLNESS: This 66-year-old gentleman with a past medical history of multiple medical problems, was admitted with acute hypokalemia as well as renal failure and acute tubular necrosis. Prerenal factors were suspected because the patient is has had incessant vomiting and abdominal discomfort also. Treated symptomatically, patient has severe hypokalemia, in conjunction with Nephrology. Patient improved significantly. Patient able to tolerate diet. CT scan of the abdomen and pelvis was also done which showed some distention of the stomach and large bowel distention which is nonspecific. On exam, vital signs are stable. Cardiovascular, S1 and S2 muffled. Abdomen soft. Nervous system, no focal deficits. DISCHARGE INSTRUCTIONS: 1. Diet is cardiac. 2. Activity limited. FOLLOWUP: 1. Follow up with Dr. Gomez in 2 to 3 days. 2. Follow up with Dr. Rodrigues as advised. MEDICATIONS: 1. Tylenol 650 every 6 p.r.n. 2. Lipitor 10 mg daily. 3. Vitamin D 3000 daily. 4. Levaquin 250 mg every 24 hours. 5. Victoza 1.8 subcu daily. 6. Cozaar 25 mg daily. 7. Flagyl 500 mg t.i.d. for 4 days. 8. Multivitamins. 9. Omeprazole 20 mg. 10.Prandin 0.5 mg b.i.d. 11.Ultram 50 mg every 6 h p.r.n. 12.Hold metformin will for now. 13.Accu-Cheks with meals and at bedtime, results to Dr. Gomez. 14.Hold Voltaren-diclofenac. Once again, the patient is being discharged in stable condition with guarded prognosis. MMODL / IJN: [id number] /
== END 2017-12-10 13:48 | disposition home or self-care (01) | DRG 683 ==
LOC: EC 13:28 → 3SUR 16:10 → 6SEL 18:49 → 4MS4W 12-09 20:22
PROVIDERS: ADMIT Hospitalist; ATTEND Hospitalist
DX: N17.0 Acute kidney failure with tubular necrosis (principal); E87.2 Acidosis; I95.9 Hypotension, unspecified; E87.5 Hyperkalemia; K52.9 Noninfective gastroenteritis and colitis, unspecified; E86.0 Dehydration; I10 Essential (primary) hypertension; E11.9 Type 2 diabetes mellitus without complications; K21.9 Gastro-esophageal reflux disease without esophagitis; G47.30 Sleep apnea, unspecified; J45.909 Unspecified asthma, uncomplicated; E78.5 Hyperlipidemia, unspecified; M19.91 Primary osteoarthritis, unspecified site; M54.30 Sciatica, unspecified side; R80.9 Proteinuria, unspecified; Z79.1 Long term (current) use of non-steroidal anti-inflammatories (NSAID); Z79.84 Long term (current) use of oral hypoglycemic drugs; Z79.899 Other long term (current) drug therapy; Z90.49 Acquired absence of other specified parts of digestive tract; Z88.1 Allergy status to other antibiotic agents; Z88.2 Allergy status to sulfonamides; Z87.891 Personal history of nicotine dependence; Z86.73 Personal history of transient ischemic attack (TIA), and cerebral infarction without residual deficits
CPT/HCPCS: 36415; 71046; 74018; 74176; 80048; 80053; 81001; 82150; 82550; 82553; 83605; 83690; 84132; 84484; 85025; 85610; 85730; 87040; 87502; 93005; 94640; 96361; 96365; 96367; 96375; 96376; 99285

== ENCOUNTER → 2018-10-18 | Outpatient (CLI) | payer MEDICARE, BC, OTHER ==
--- NOTE | 2018-10-18 16:00 | US ---
EXAMINATION TYPE: US carotid duplex BILAT DATE OF EXAM: 10/18/2018 COMPARISON: NONE CLINICAL HISTORY: G45.9 TIA. EXAM MEASUREMENTS: RIGHT: Peak Systolic Velocity (PSV) cm/sec ----- Right CCA: 65.1 ----- Right ICA: 80.8 ----- Right ECA: 63.0 ICA/CCA ratio: 1.2 RIGHT: End Diastole cm/sec ----- Right CCA: 16.2 ----- Right ICA: 32.1 ----- Right ECA: 9.6 LEFT: Peak Systolic Velocity (PSV) cm/sec ----- Left CCA: 84.0 ----- Left ICA: 108.1 ----- Left ECA: 69.2 ICA/CCA ratio: 1.3 LEFT: End Diastole cm/sec ----- Left CCA: 23.3 ----- Left ICA: 31.3 ----- Left ECA: 7.6 VERTEBRALS (direction of flow): Right Vertebral: Antegrade Left Vertebral: Antegrade Rhythm: Normal Mild plaque, no significant velocity elevations. IMPRESSION: 1. No significant flow-limiting stenosis Criteria for Assigning % of Stenosis / Diameter reduction (Estimation based on the indirect measurements of the internal carotid artery velocities (ICA PSV). 1. Normal (no stenosis)=ICA PSV < 125 cm/s: ratio < 2.0: ICA EDV<40 cm/s. 2. Less than 50% stenosis=ICA PSV < 125 cm/s: ratio < 2.0: ICA EDV<40 cm/s. 3. 50 to 69% stenosis=ICA PSV of 125 to 230 cm/s: ration 2.0 ? 4.0: ICA EDV 40-100 cm/s. 4. Greater than 70% stenosis to near occlusion= ICA PSV > 230 cm/s: ratio > 4.0: ICA EDV > 100 cm/s. 5. Near occlusion= ICA PSV velocities may be low or undetectable: variable ratio and ICA EDV. 6. Total occlusion=unable to detect flow.
== END ==
LOC: RADUSWWP 14:37
PROVIDERS: ATTEND Internal Medicine
DX: G45.9 Transient cerebral ischemic attack, unspecified (principal)
CPT/HCPCS: 93880

== ENCOUNTER 2018-11-30 07:55 | Day surgery (SDC) | payer MEDICARE, BC, OTHER ==
[2018-11-28 10:42] VITALS: BMI 29.7
[~2018-11-30 07:55] MED LIST: LACTATED RINGERS 1,000 ML IV SCH
[2018-11-30 08:19] VITALS: TEMP 98.2
[2018-11-30 08:24] LABS: Glucose,Whole Blood 139 mg/dL (75-99)
[2018-11-30] MEDS ORDERED: LIDOCAINE 1% 20 ML VIAL (10MG/ML) FOR IV START INTRADERMA ONE (08:25)
[2018-11-30] MEDS ORDERED: fentaNYL (PF) 50 MCG/ML 2 ML AMP ONE (08:52)
[2018-11-30] MEDS ORDERED: MIDAZOLAM 2 MG/2 ML VIAL ONE (08:52)
[2018-11-30] MEDS ORDERED: PROPOFOL 10 MG/ML 20 ML VIAL IV ONE (08:52)
[2018-11-30] MEDS ORDERED: LIDOCAINE 1% INJ 10MG/ML (20 ML MDV) ONE (08:52)
[2018-11-30] MEDS ORDERED: BUPIVACAIN-EPI 0.25%-1:200,000 30 ML VIAL SQ ONE (09:20)
[2018-11-30 09:35] VITALS: RESP 16
--- NOTE | 2018-11-30 09:42 | P.PCN ---
Date of Procedure: 11/30/18 Procedure(s) Performed: PREOPERATIVE DIAGNOSIS: Colon cancer screening, perianal skin tag POSTOPERATIVE DIAGNOSIS: Mild diverticulosis, sigmoid polyp, descending colon polyp, perianal skin tag PROCEDURE: Colonoscopy snare polypectomy and biopsy and spot injection, excision perianal skin tag ANESTHESIA: MAC SURGEON: Donaldo Murillo M.D. SPECIMENS: Sigmoid colon polyp ENDOSCOPIC PROCEDURE: The patient was placed on the endoscopy table in the left decubitus position. The Olympus colonoscope was inserted into the anus and passed under direct visualization to the base of the cecum. The appendiceal orifice was visualized. From that point the scope was slowly withdrawn inspecting all surfaces carefully. There were no neoplastic inflammatory or polypoid lesions throughout the cecum, ascending, or transverse colon. In the descending colon a small polyp was identified and removed using the snare with cautery technique. There was little to no specimen seen as the polyp was so small that it mostly fulgurated. In the mid sigmoid colon at 25 cm there was a 1.5-2 cm sessile polypoid lesion that had the appearance of a central ulceration. His was removed partially using the snare with cautery technique. I also biopsied the central portion of this using cold biopsy forceps. The amount of tissue sampled seemed to be somewhat limited. I used the spot to inject just proximal and distal to this area. The remainder of the sigmoid and rectum appeared normal. At the anus the patient had a perianal skin tag in the left lateral position. This measured 1 cm in size. This was excised using a single 3-0 Vicryl stitch after localizing the skin. This was sent to pathology. There was mild diverticulosis seen in the colon. Digital rectal examination was normal. The patient was taken to the recovery room in stable condition per anesthesia guidelines. RECOMMENDATIONS: Await biopsy results. Patient will follow-up in the office 1-2 weeks. Patient will likely require sigmoid resection given the inability to endoscopically remove this lesion. If the biopsy results are benign endoscopic mucosal resection at a tertiary care center would be an alternative. This will be discussed further with the patient.
[2018-11-30 09:49] VITALS: BP 161/87; PULSE 65
== END 2018-11-30 10:10 | disposition home or self-care (01) ==
LOC: ORWHC2ENDO 07:55
PROVIDERS: ATTEND Surgery
DX: Z12.11 Encounter for screening for malignant neoplasm of colon (principal); D12.4 Benign neoplasm of descending colon; D12.5 Benign neoplasm of sigmoid colon; K64.4 Residual hemorrhoidal skin tags; Z88.2 Allergy status to sulfonamides; Z88.8 Allergy status to other drugs, medicaments and biological substances; I10 Essential (primary) hypertension; Z90.49 Acquired absence of other specified parts of digestive tract; E78.5 Hyperlipidemia, unspecified; G47.33 Obstructive sleep apnea (adult) (pediatric); J45.909 Unspecified asthma, uncomplicated; E11.40 Type 2 diabetes mellitus with diabetic neuropathy, unspecified; K21.9 Gastro-esophageal reflux disease without esophagitis; K57.30 Diverticulosis of large intestine without perforation or abscess without bleeding; Z79.899 Other long term (current) drug therapy; Z79.2 Long term (current) use of antibiotics
CPT/HCPCS: 88304; 88305; 45380; 45385; 44404; J2250; J2001; J3010; J2704

== ENCOUNTER → 2019-06-10 | Outpatient (CLI) | payer MEDICARE, BC, OTHER ==
--- NOTE | 2019-06-12 15:12 | P.ARTDOP ---
Arterial Doppler LOWER EXTREMITY ARTERIAL DOPPLER: DATE OF SERVICE: 06/10/2019 Reason for study: Painful feet. Doppler waveforms: Multiphasic bilaterally throughout. Pulse volume recording: []. Pressure gradients: None. Ankle-brachial indices: Greater than 1 bilaterally. Toe pressures: 104 on the right, 104 on the left Impression: Normal study.
== END | disposition home or self-care (01) ==
LOC: RADUSWWP 11:25
PROVIDERS: ATTEND Internal Medicine
DX: I73.9 Peripheral vascular disease, unspecified (principal)
CPT/HCPCS: 93922

== ENCOUNTER 2021-08-21 11:39 | Inpatient (IN) | payer MEDICARE, BC, OTHER ==
[2021-08-21] MEDS ORDERED: SODIUM CHLORIDE 0.9% 1,000 ML IV STA ×2 (12:12)
[2021-08-21] MEDS ORDERED: ALBUTEROL HFA INHALER INHALATION STA (12:14)
[2021-08-21] MEDS ORDERED: DEXAMETHASONE SOD PHOSPHATE 10 MG/ML 1 ML VIAL IV STA (12:14)
[2021-08-21 12:55] LABS: Basophils % (A) 0 %; Eosinophils # (A) 0.1 k/uL (0-0.7); Eosinophils % (A) 0 %; HCT 43.4 % (39.0-53.0); Lymphocytes # (A) 0.9 k/uL (1.0-4.8); Lymphocytes % (A) 4 %; MCH 29.9 pg (25.0-35.0); MCHC 34.6 g/dL (31.0-37.0); MCV 86.4 fL (80.0-100.0); Mean Platelet Volume 7.5; Monocytes # (A) 0.6 k/uL (0-1.0); Monocytes % (A) 3 %; Neutrophils # (A) 18.9 k/uL (1.3-7.7); Neutrophils % (A) 92 %; Platelet Count 473 k/uL (150-450); RBC 5.02 m/uL (4.30-5.90); RDW 12.8 % (11.5-15.5); WBC 20.6 k/uL (3.8-10.6)
[2021-08-21 13:04] LABS: Albumin 3.7 g/dL (3.5-5.0); Calcium 9.9 mg/dL (8.4-10.2); Magnesium 1.8 mg/dL (1.6-2.3); Total Bilirubin 1.1 mg/dL (0.2-1.3); Total Protein 8.1 g/dL (6.3-8.2)
--- NOTE | 2021-08-21 13:18 | XR ---
EXAMINATION TYPE: XR chest 1V portable DATE OF EXAM: 08/21/2021 COMPARISON: Weakness and cough. HISTORY: Chest x-ray December 08, 2017 TECHNIQUE: Single AP portable frontal upright view of the chest is obtained. FINDINGS: There are bilateral multifocal and confluent opacities new from prior study. Low lung vol umes redemonstrated. The cardiac silhouette size is mildly enlarged. The osseous structures are int act. IMPRESSION: New bilateral multifocal and confluent opacities consistent with covid-19 infection.
[2021-08-21 13:19] LABS: INR 1.1 (<1.2); Partial Thromboplastin Time 22.1 sec (22.0-30.0); Prothrombin Time 11.2 sec (9.0-12.0)
[2021-08-21] MEDS ORDERED: SODIUM CHLORIDE 0.9% 500 ML IV STA (13:43)
--- NOTE | 2021-08-21 14:14 | ED ---
SOB HPI - General Chief Complaint: Shortness of Breath Stated Complaint: Covid+, SOB Time Seen by Provider: 08/21/21 12:02 Source: patient, family Mode of arrival: wheelchair Limitations: no limitations - History of Present Illness Initial Comments: This 70-year-old male presents with a complaint of shortness of breath. He initially developed cold like symptoms approximately 14 days ago. He states that he had a positive test approximately 9 days ago. He has had a slight cough with minimal yellowish production. He's been monitoring his oxygen at home and states that his pulse oximeter has been in the low 70s for the last 3 days. He complains of severe weakness. He also complains of diffuse myalgias. He denies any leg pain or swelling or history of DVT or PE. He does take breathing treatments at home of Atrovent and albuterol 4 times a day. He also has been taking Decadron for the last 7 days or so. He has been on doxycycline as well. He denies any degree of relief with these medications. He states that he is stubborn and did not want to come in but his daughter is a nurse and made him come in. He denies any recent fevers. There is no loss of taste or loss of smell. He does complain of severe weakness and fatigue. He states that all symptoms are worse with any minimal degree of exertion of essentially walking across a room. No other complaints or modifying factors. The patient does note that he received 2 of his Covid immunizations thus far. - Related Data Home Medications Medication Instructions Recorded Confirmed Cholecalciferol [Vitamin D3 (25 1,000 unit PO DAILY 12/08/17 11/30/18 Mcg = 1000 Iu)] Liraglutide [Victoza 3-Jamey] 1.8 mg SQ DAILY 12/08/17 11/30/18 Losartan Potassium [Cozaar] 25 mg PO QAM 12/08/17 11/30/18 Multivitamins, Thera [Multivitamin 1 tab PO DAILY 12/08/17 11/30/18 (formulary)] Omeprazole 20 mg PO DAILY 12/08/17 11/30/18 Repaglinide [Prandin] 0.5 mg PO BID@1200,1800 12/08/17 11/30/18 traMADol HCL [Ultram] 50 mg PO Q6H PRN 12/08/17 11/30/18 Insulin Degludec [Tresiba] 8 units SQ 1900 11/28/18 11/30/18 Allergies Allergy/AdvReac Type Severity Reaction Status Date / Time clarithromycin [From Biaxin] Allergy Rash/Hives Verified 08/21/21 15:32 Sulfa (Sulfonamide Allergy Rash/Hives Verified 08/21/21 15:32 Antibiotics) Review of Systems ROS Statement: Those systems with pertinent positive or pertinent negative responses have been documented in the HPI. ROS Other: All systems not noted in ROS Statement are negative. Past Medical History Past Medical History: Asthma, CVA/TIA, Diabetes Mellitus, GERD/Reflux, Hyperlipidemia, Hypertension, Osteoarthritis (OA), Sleep Apnea/CPAP/BIPAP Additional Past Medical History / Comment(s): Back pain, sciatic nerve pain, tinnitus, neuropathy, occasional sinus problems. Hx agent orange exposure, TIA 2009 or 2010, bells palsy 2002. No CPAP use. History of Any Multi-Drug Resistant Organisms: None Reported Past Surgical History: Back Surgery, Cholecystectomy Additional Past Surgical History / Comment(s): Epidural injections in back, bilateral carpal tunnel release, bilateral knee arthroscopy, trigger finger release bilateral thumbs, right eye injury with surgery to repair. Past Anesthesia/Blood Transfusion Reactions: Postoperative Nausea & Vomiting (PONV) Past Psychological History: PTSD Smoking Status: Never smoker Past Alcohol Use History: Rare Past Drug Use History: None Reported - Past Family History Mother Family Medical History: Osteoarthritis (OA) Father Family Medical History: Diabetes Mellitus Additional Family Medical History / Comment(s): , had Parkinsons, etoh, smoked. Sister(s) Family Medical History: Liver Disease Additional Family Medical History / Comment(s): Hepatitis B - in 1981. Brother(s) Family Medical History: Liver Disease Additional Family Medical History / Comment(s): etoh General Exam - General Exam Comments Initial Comments: GENERAL: The patient is well nourished and well hydrated. VITAL SIGNS: Heart rate, blood pressure, respiratory rate reviewed as recorded in nurse's notes. EYES: Pupils are round and reactive. Extraocular movements are intact. No conju nctival / lid redness or swelling. ENT: No external evidence of injury, swelling, or ecchymosis. Airway is patent. Throat is clear. NECK: Nontender. No swelling or evidence of injury. No subcutaneous emphysema. Trachea is midline. No thyroid mass. HEART: Regular rate and rhythm. Good peripheral pulses. LUNGS/CHEST: Breath sounds clear and equal bilaterally. No rales, rhonchi, or wheezes. No ecchymosis, subcutaneous emphysema, or tenderness. ABDOMEN: Abdomen soft without tenderness. No palpable masses or organomegaly. No peritoneal signs. No abdominal wall swelling or ecchymosis. EXTREMITIES: No extremity tenderness. Normal muscle tone and function. No thoracolumbar tenderness. NEUROLOGIC: Sensation is grossly intact. Cranial nerve exam reveals face is symmetrical, tongue is midline, speech is clear. SKIN: No abrasions or ecchymosis is noted. No induration or masses noted. PSYCHIATRIC: Alert and oriented. Appropriate behavior and judgment. Limitations: no limitations Course Vital Signs 08/21/21 08/21/21 11:48 14:00 Temperature 98.2 F Pulse Rate 131 H 115 H Respiratory 24 22 Rate Blood Pressure 105/70 123/68 O2 Sat by Pulse 76 L 96 Oximetry Medical Decision Making - Medical Decision Making The patient was seen and examined. All diagnostics were reviewed. The patient had a EKG and this shows a sinus tachycardia at a rate of 126. There is no acute ST-T wave changes identified. The MI intervals 148, QRS duration is 70, and the QTC intervals 434. He is placed on a cardiac cath technologist and this does show sinus tachycardia as well. Is pulse oximeter reading upon arrival 76%. He is placed on oxygen and this does improve. He is given ample fluid hydration. He is also given Decadron IV as well as albuterol HFA. His laboratory is reviewed and does show a leukocytosis. It also shows elevation of the d-dimer among othe r abnormalities. The chest x-ray shows bilateral pneumonia consistent with covid. A CT angiogram of the chest is ordered due to his respiratory failure and elevation of d-dimer. The laboratory does show a degree of acute kidney injury. It also shows evidence of hyperkalemia and hyponatremia. The computed tomography scan shows evidence of Covid pneumonia as well as possible suspected pulmonary embolism. Patient is started on heparin. He receives treatment for his hyperkalemia with Kayexalate, glucose, insulin, and bicarbonate. It is felt as though he is in acute hypoxic respiratory failure secondary to the Covid pneumonia. It is also felt as though he is dehydrated and he receives ample fluid hydration. He will require admission to the hospital for further treatment. Approximately 40 minutes of critical care time is utilized and the treatment of the patient. Case is discussed with Dr. Aguirre from internal medicine and she is agreeable with admission. - Lab Data Result diagrams: 08/21/21 12:35 08/21/21 12:35 Lab Results 08/21/21 08/21/21 08/21/21 Range/Units 12:35 12:35 12:35 WBC 20.6 H (3.8-10.6) k/uL RBC 5.02 (4.30-5.90) m/uL Hgb 15.0 (13.0-17.5) gm/dL Hct 43.4 (39.0-53.0) % MCV 86.4 (80.0-100.0) fL MCH 29.9 (25.0-35.0) pg MCHC 34.6 (31.0-37.0) g/dL RDW 12.8 (11.5-15.5) % Plt Count 473 H (150-450) k/uL MPV 7.5 Neutrophils % 92 % Lymphocytes % 4 % Monocytes % 3 % Eosinophils % 0 % Basophils % 0 % Neutrophils # 18.9 H (1.3-7.7) k/uL Lymphocytes # 0.9 L (1.0-4.8) k/uL Monocytes # 0.6 (0-1.0) k/uL Eosinophils # 0.1 (0-0.7) k/uL Basophils # 0.0 (0-0.2) k/uL PT 11.2 (9.0-12.0) sec INR 1.1 (<1.2) APTT 22.1 (22.0-30.0) sec D-Dimer 0.82 H (<0.60) mg/L FEU Sodium 129 L (137-145) mmol/L Potassium 6.0 H (3.5-5.1) mmol/L Chloride 94 L (98-107) mmol/L Carbon Dioxide 22 (22-30) mmol/L Anion Gap 13 mmol/L BUN 54 H (9-20) mg/dL Creatinine 1.51 H (0.66-1.25) mg/dL Est GFR (CKD-EPI)AfAm 53 (>60 ml/min/1.73 sqM) Est GFR (CKD-EPI)NonAf 46 (>60 ml/min/1.73 sqM) Glucose 126 H (74-99) mg/dL Lactic Ac Sepsis Rflx Plasma Lactic Acid Milton (0.7-2.0) mmol/L Calcium 9.9 (8.4-10.2) mg/dL Magnesium 1.8 (1.6-2.3) mg/dL Total Bilirubin 1.1 (0.2-1.3) mg/dL AST 65 H (17-59) U/L ALT 79 H (4-49) U/L Alkaline Phosphatase 267 H (38-126) U/L Troponin I (0.000-0.034) ng/mL NT-Pro-B Natriuret Pep pg/mL Total Protein 8.1 (6.3-8.2) g/dL Albumin 3.7 (3.5-5.0) g/dL 08/21/21 08/21/21 08/21/21 Range/Units 12:35 12:35 12:35 WBC (3.8-10.6) k/uL RBC (4.30-5.90) m/uL Hgb (13.0-17.5) gm/dL Hct (39.0-53.0) % MCV (80.0-100.0) fL MCH (25.0-35.0) pg MCHC (31.0-37.0) g/dL RDW (11.5-15.5) % Plt Count (150-450) k/uL MPV Neutrophils % % Lymphocytes % % Monocytes % % Eosinophils % % Basophils % % Neutrophils # (1.3-7.7) k/uL Lymphocytes # (1.0-4.8) k/uL Monocytes # (0-1.0) k/uL Eosinophils # (0-0.7) k/uL Basophils # (0-0.2) k/uL PT (9.0-12.0) sec INR (<1.2) APTT (22.0-30.0) sec D-Dimer (<0.60) mg/L FEU Sodium (137-145) mmol/L Potassium (3.5-5.1) mmol/L Chloride (98-107) mmol/L Carbon Dioxide (22-30) mmol/L Anion Gap mmol/L BUN (9-20) mg/dL Creatinine (0.66-1.25) mg/dL Est GFR (CKD-EPI)AfAm (>60 ml/min/1.73 sqM) Est GFR (CKD-EPI)NonAf (>60 ml/min/1.73 sqM) Glucose (74-99) mg/dL Lactic Ac Sepsis Rflx Plasma Lactic Acid Milton 2.2 H* (0.7-2.0) mmol/L Calcium (8.4-10.2) mg/dL Magnesium (1.6-2.3) mg/dL Total Bilirubin (0.2-1.3) mg/dL AST (17-59) U/L ALT (4-49) U/L Alkaline Phosphatase (38-126) U/L Troponin I <0.012 (0.000-0.034) ng/mL NT-Pro-B Natriuret Pep 90 pg/mL Total Protein (6.3-8.2) g/dL Albumin (3.5-5.0) g/dL 08/21/21 Range/Units 13:05 WBC (3.8-10.6) k/uL RBC (4.30-5.90) m/uL Hgb (13.0-17.5) gm/dL Hct (39.0-53.0) % MCV (80.0-100.0) fL MCH (25.0-35.0) pg MCHC (31.0-37.0) g/dL RDW (11.5-15.5) % Plt Count (150-450) k/uL MPV Neutrophils % % Lymphocytes % % Monocytes % % Eosinophils % % Basophils % % Neutrophils # (1.3-7.7) k/uL Lymphocytes # (1.0-4.8) k/uL Monocytes # (0-1.0) k/uL Eosinophils # (0-0.7) k/uL Basophils # (0-0.2) k/uL PT (9.0-12.0) sec INR (<1.2) APTT (22.0-30.0) sec D-Dimer (<0.60) mg/L FEU Sodium (137-145) mmol/L Potassium (3.5-5.1) mmol/L Chloride (98-107) mmol/L Carbon Dioxide (22-30) mmol/L Anion Gap mmol/L BUN (9-20) mg/dL Creatinine (0.66-1.25) mg/dL Est GFR (CKD-EPI)AfAm (>60 ml/min/1.73 sqM) Est GFR (CKD-EPI)NonAf (>60 ml/min/1.73 sqM) Glucose (74-99) mg/dL Lactic Ac Sepsis Rflx Y Plasma Lactic Acid Milton (0.7-2.0) mmol/L Calcium (8.4-10.2) mg/dL Magnesium (1.6-2.3) mg/dL Total Bilirubin (0.2-1.3) mg/dL AST (17-59) U/L ALT (4-49) U/L Alkaline Phosphatase (38-126) U/L Troponin I (0.000-0.034) ng/mL NT-Pro-B Natriuret Pep pg/mL Total Protein (6.3-8.2) g/dL Albumin (3.5-5.0) g/dL Disposition Clinical Impression: Acute respiratory failure, Bilateral pneumonia, COVID-19, Hypoxia, Sinus tachycardia, Leukocytosis, Weakness, Hyperkalemia, Acute hyponatremia, Dehydration, Acute kidney injury, Pulmonary embolism Disposition: ADMITTED IP TO THIS HOSP Condition: Serious Is patient prescribed a controlled substance at d/c from ED?: No Referrals: June Crowley MD [Primary Care Provider] - 1-2 days Time of Disposition: 15:39 Decision Date: 08/21/21 Decision Time: 15:39
--- NOTE | 2021-08-21 14:45 | CT ---
EXAMINATION TYPE: CT angio chest DATE OF EXAM: 08/21/2021 COMPARISON: None HISTORY: Shortness of breath CT DLP: 467.9 mGycm Automated exposure control for dose reduction was used. CONTRAST: Performed with IV Contrast, patient injected with 80, wasted 41 mL of Isovue 370. There are 3-D post processed images. There is extensive patchy groundglass interstitial infiltrate throughout both lungs. There is no mediastinal adenopathy. There are no hilar masses. Thoracic aorta is intact. There is no aneurysm or dissection. Exam limited somewhat by motion. There are possible filling defects in the right lower lobe pulmonary artery. There is no pleural effusion. There is no pericardial effusion. Thoracic spine is intact. IMPRESSION: Possible embolism in the right lower lobe pulmonary artery. Exam limited by motion. Extensive pulmonary interstitial pneumonia. Attempts were made to contact emergency room and these were not successful.
[2021-08-21] MEDS ORDERED: HEPARIN SODIUM 1,000 UN/ML (10ML VL) IV PRN (15:16)
[2021-08-21] MEDS ORDERED: HEPARIN SODIUM 1,000 UN/ML (10ML VL) IV ONE (15:16)
[2021-08-21] MEDS ORDERED: SODIUM BICARB 8.4% 50 ML SYR (1 MEQ/ML) IV ONE (15:18)
[2021-08-21] MEDS ORDERED: ALBUTEROL NEB (CONC) 2.5 MG/0.5 ML INHALATION ONE (15:18)
[2021-08-21] MEDS ORDERED: INSULIN REGULAR 100 UNIT/ML VIAL (IV) IV ONE (15:18)
[2021-08-21] MEDS ORDERED: SODIUM POLYSTYRENE SULFONATE 15 GM/60 ML BOTTLE PO ONE (15:18)
[2021-08-21] MEDS ORDERED: DEXTROSE 50% SYRINGE 50 ML IVP ONE (15:18)
[2021-08-21] MEDS ORDERED: PNEUMONIA PROTOCOL UTILIZED 1 EACH MISC PO PRN (15:39)
[2021-08-21] MEDS ORDERED: traMADol 50 MG TAB PO PRN (15:43)
[2021-08-21] MEDS ORDERED: NON FORMULARY DRUG (Acetaminophen [Tylenol Arthritis] 650 MG Tablet) PO PRN (15:43)
[2021-08-21] MEDS ORDERED: REPAGLINIDE 1 MG TAB PO SCH (16:00)
[2021-08-21] MEDS: HEPARIN SOD,PORK IN 0.45% NACL 25,000 UNIT in 0.45% NACL 1 250ML.BAG IV SCH (17:01)
[2021-08-21] MEDS: ALBUTEROL HFA INHALER INHALATION SCH ×3 (17:17→23:52)
--- NOTE | 2021-08-21 18:29 | P.HPIM ---
History of Present Illness H&P Date: 08/21/21 Chief Complaint: hypoxia Patient is a 70-year-old male with a history of diabetes mellitus type 2, GERD, hypertension, dyslipidemia, and multiple other comorbid conditions who presented to the ER with complaints of worsening oxygenation. He has been diagnosed with cold. Approximately one week prior to admission. He had undergone 7 days of Decadron as an outpatient and have been monitoring his pulse ox and he was noted to be in the low 70s. He therefore proceeded to the hospital. On arrival he underwent an extensive evaluation. His O2 sat was 7076 on room air with a pulse rate in the 131. Laboratory analysis showed a white blood cell count of 20, sodium 129, potassium 6, chloride 94, BUN 54, creatinine 1.54, and lactic acid 2.2. Mildly elevated liver enzymes with an ALT is 65 and an AST of 79. CTA of the stress test demonstrated possible right lower lobe pulmonary artery embolism, and extensive bilateral interstitial pneumonia. EKG demonstrated sinus tachycardia. He was treated with insulin, glucose, sodium bicarb. Was given a dose of Kayexalate and 1 L of IV fluids. Patient seen and examined at bedside. He reports that he began having symptoms about 10 days ago and got tested. He then started on Decadron about 7 days ago. He received his vaccines but has not yet received a booster. He reports he has had significant shortness of breath and cough. He has not ate or drank much in almost a week. He has been trying to take all his medications at home but has been unsuccessful. He did have diarrhea his initial 2 days after symptom onset but this has resolved. He reports fatigue, decreased exercise tolerance. He states that for the last 3 days his oxygenation levels have been in the 70s but his has not wanted him to go to the hospital. Today his daughter who is a nurse convinced him to come and get seen. He is unsure if he has had fevers recently. He states his is also sick at home but has refused to get tested. Pertinent positives and negatives as discussed in HPI, a complete review of systems was performed and all other systems are negative. General: non toxic, no distress, appears at stated age Derm: warm, dry, skin tenting Head: atraumatic, normocephalic, symmetric Eyes: EOMI, no lid lag, anicteric sclera, pupils equal round reactive to light ENT: Nose and ears atraumatic, no thrush, no pharyngeal erythema Neck: No thyromegaly, no cervical lymphadenopathy, trachea midline, supple Mouth: no lip lesion, mucus membranes dry Cardiovascular: S1S2 reg, no murmur, positive posterior tibial pulse bilateral, no edema, capillary refill less than 2 seconds Lungs: Coarse breath sounds bilateral, fiber conversational dyspnea, + accessory muscle use Abdominal: soft, nontender to palpation, no guarding, no appreciable organomegaly, normal bowel sounds Ext: no gross muscle atrophy, muscle strength muscle strength 5 out of 5 in all 4 extremities, no contractures Neuro: CN II-XI grossly intact, light touch intact all 4 extremities, finger to nose within normal limits, Psych: Alert, oriented, appropriate affect COVID 19 pneumonia Acute Hypoxic Respiratory Failure Transaminitis Lactic acidosis - Decadron - pulm consult - zinc, vit C, vit D - follow inflammatory markers - check Procalcitonin -Not a candidate for Remdesivir due to length from on set of symptoms, not a candidate Baricitnib as not requiring significant amounts of oxygen. We'll await pulmonary recommendations. Right lower lobe pulmonary artery embolsim - heparin gtt - pulm recs Leukocytosis - possibly reactive to outpatient decadron - follow CBC - monitor for fevers - check procalcitonin Hyperkalemia TERESA vs CKD, baseline undetermined Hyponatremia - suspect due to dehydration and insensible water losses - IVF fluids - lyes q6h - hold irbasartan - consult nephro DM 2 - Sliding scale - long acting insulin - follow BS - check A1C - Hold Prandin, victoza Chronic: Asthma GERD HTN HLD MECHELLE The patient is admitted with an anticipated greater than 2 midnight stay for evaluation of COVID-19 pneumonia Surrogate decision-maker: CODE STATUS:full DVT prophylaxis: heparin gtt Discussed with: patient, nursing, ed attending Anticipated discharge date: undetermined Anticipated discharge place: undetermined A total of 65 minutes was spent on the care of this complex patient more than 50% of the time was spent in counseling and care coordination. Past Medical History Past Medical History: Asthma, CVA/TIA, Diabetes Mellitus, GERD/Reflux, Hyperlipidemia, Hypertension, Osteoarthritis (OA), Sleep Apnea/CPAP/BIPAP Additional Past Medical History / Comment(s): Back pain, sciatic nerve pain, tinnitus, neuropathy, occasional sinus problems. Hx agent orange exposure, TIA 2009 or 2010, bells palsy 2002. No CPAP use. History of Any Multi-Drug Resistant Organisms: None Reported Past Surgical History: Back Surgery, Cholecystectomy Additional Past Surgical History / Comment(s): Epidural injections in back, bilateral carpal tunnel release, bilateral knee arthroscopy, trigger finger release bilateral thumbs, right eye injury with surgery to repair. Past Anesthesia/Blood Transfusion Reactions: Postoperative Nausea & Vomiting (PONV) Past Psychological History: PTSD Smoking Status: Never smoker Past Alcohol Use History: Rare Past Drug Use History: None Reported - Past Family History Mother Family Medical History: Osteoarthritis (OA) Father Family Medical History: Diabetes Mellitus Additional Family Medical History / Comment(s): , had Parkinsons, etoh, smoked. Sister(s) Family Medical History: Liver Disease Additional Family Medical History / Comment(s): Hepatitis B - in 1981. Brother(s) Family Medical History: Liver Disease Additional Family Medical History / Comment(s): etoh Medications and Allergies Home Medications Medication Instructions Recorded Confirmed Type Cholecalciferol [Vitamin D3 (25 1,000 unit PO DAILY 12/08/17 08/21/21 History Mcg = 1000 Iu)] Liraglutide [Victoza 3-Jamey] 1.8 mg SQ DAILY 12/08/17 08/21/21 History Multivitamins, Thera [Multivitamin 1 tab PO DAILY 12/08/17 08/21/21 History (formulary)] Omeprazole 20 mg PO DAILY 12/08/17 08/21/21 History traMADol HCL [Ultram] 50 mg PO Q6H PRN 12/08/17 08/21/21 History Insulin Degludec [Tresiba] 15 units SQ HS 11/28/18 08/21/21 History Acetaminophen [Tylenol Arthritis] 1,300 mg PO Q8H PRN 08/21/21 08/21/21 History Atorvastatin [Lipitor] 10 mg PO DAILY 08/21/21 08/21/21 History Budesonide/Formoterol Fumarate 2 puff INHALATION RT-BID 08/21/21 08/21/21 Hi story [Symbicort 160-4.5 Mcg Inhaler] Dexamethasone 6 mg PO DAILY 08/21/21 08/21/21 History Doxycycline Hyclate 100 mg PO BID 08/21/21 08/21/21 History Fluticasone Nasal [place] [Flonase 1 spr EA NOSTRIL DAILY 08/21/21 08/21/21 History Nasal [place]] Ipratropium-Albuterol Nebulize 3 ml INHALATION RT-QID 08/21/21 08/21/21 History [Duoneb 0.5 mg-3 mg/3 ml Soln] Irbesartan [Avapro] 150 mg PO DAILY 08/21/21 08/21/21 History Repaglinide [Prandin] 1 mg PO TID 08/21/21 08/21/21 History Turmeric Root Extract [Turmeric] 500 mg PO DAILY 08/21/21 08/21/21 History Allergies Allergy/AdvReac Type Severity Reaction Status Date / Time clarithromycin [From Biaxin] Allergy Rash/Hives Verified 08/21/21 15:32 Sulfa (Sulfonamide Allergy Rash/Hives Verified 08/21/21 15:32 Antibiotics) Physical Exam Osteopathic Statement: *. No significant issues noted on an osteopathic structural exam other than those noted in the History and Physical/Consult. Vitals: Vital Signs Temp Pulse Resp BP Pulse Ox 08/21/21 14:00 115 H 22 123/68 96 08/21/21 11:48 98.2 F 131 H 24 105/70 76 L Intake and Output 08/21/21 08/21/21 08/21/21 06:59 14:59 22:59 Other: Weight 84.822 kg Results CBC & Chem 7: 08/22/21 06:44 08/22/21 11:39 Labs: Abnormal Lab Results - Last 24 Hours (Table) 08/21/21 08/21/21 08/21/21 Range/Units 12:35 12:35 12:35 WBC 20.6 H (3.8-10.6) k/uL Plt Count 473 H (150-450) k/uL Neutrophils # 18.9 H (1.3-7.7) k/uL Lymphocytes # 0.9 L (1.0-4.8) k/uL D-Dimer 0.82 H (<0.60) mg/L FEU Sodium 129 L (137-145) mmol/L Potassium 6.0 H (3.5-5.1) mmol/L Chloride 94 L (98-107) mmol/L BUN 54 H (9-20) mg/dL Creatinine 1.51 H (0.66-1.25) mg/dL Glucose 126 H (74-99) mg/dL Plasma Lactic Acid [place] (0.7-2.0) mmol/L AST 65 H (17-59) U/L ALT 79 H (4-49) U/L Alkaline Phosphatase 267 H (38-126) U/L 08/21/21 08/21/21 Range/Units 12:35 17:07 WBC (3.8-10.6) k/uL Plt Count (150-450) k/uL Neutrophils # (1.3-7.7) k/uL Lymphocytes # (1.0-4.8) k/uL D-Dimer (<0.60) mg/L FEU Sodium (137-145) mmol/L Potassium (3.5-5.1) mmol/L Chloride (98-107) mmol/L BUN (9-20) mg/dL Creatinine (0.66-1.25) mg/dL Glucose (74-99) mg/dL Plasma Lactic Acid [place] 2.2 H* 2.2 H* (0.7-2.0) mmol/L AST (17-59) U/L ALT (4-49) U/L Alkaline Phosphatase (38-126) U/L
[2021-08-21] MEDS ORDERED: MELATONIN 3 MG TABLET PO PRN (18:30)
[2021-08-21] MEDS ORDERED: bisacodyL 5 MG TABLET.DR PO PRN (18:30)
[2021-08-21] MEDS ORDERED: ONDANSETRON 4 MG/2 ML VIAL IVP PRN (18:30)
[2021-08-21] MEDS ORDERED: NALOXONE 0.4 MG/ML 1 ML VIAL IV PRN (18:30)
[2021-08-21] MEDS ORDERED: ACETAMINOPHEN TAB 325 MG TAB PO PRN (18:30)
--- NOTE | 2021-08-21 18:45 | P.CNPUL ---
History of Present Illness Consult date: 08/21/21 Requesting physician: June Crowley Reason for consult: dyspnea, cough, hypoxemia, pneumonia, pulmonary embolism, abnormal CXR/CT Chief complaint: Shortness of breath, cough, fever, fatigue. History of present illness: Pulmonary consult dated 08/21/2021. 70-year-old male, who is seen in the emergency department, on August 21. He came in with complaints of shortness of breath. He's been sick for at least 2 weeks maybe longer. He initially developed cold symptoms. He apparently tested positive for coronavirus 9 days ago. He had a cough or chest congestion, and minimal yellow phlegm production. He apparently is been monitoring his oxygen at home, and over the last 3 days, his saturations dropped into the 70s. His daughter who is a nurse, told him to get into the emergency room to be evaluated. In addition, the patient has chest congestion, fever, and significant fatigue and weakness. He complains of diffuse muscle aches. He denied any chest pain or chest discomfort. He was given Decadron is been taking over the last 7 days. He also has been using breathing treatments at home with both albuterol sulfate and ipratropium bromide. The patient was evaluated in [facility] emergency room, was admitted with a diagnosis of coronavirus associated pneumonia, and a CT angiogram showed a pulmonary embolism in the right lower lobe. His past medical history is positive for diabetes and hypertension. He used to smoke but quit more than 30 years ago. He has been vaccinated back in February, with the Pfizer vaccine, 2. Currently, he's on 4 L nasal cannula, IV heparin, and a saline IV at O. White count was 20.6, hemoglobin 15, hematocrit 43.4, and platelet count 473,000. D-dimer was 0.82. Sodium 129, potassium 6, chlorides 94, CO2 22, anion gap 13, BUN 54, and creatinine 1.51. Lactic acid was 2.2 and the repeat was also 2.2. N-terminal proBNP was normal. And troponin was negative. Chest x-ray shows diffuse bilateral infiltrates. CT angiogram was positive for diffuse extensive pulmonary infiltrates, and a possible right lower lobe pulmonary embolism. Review of Systems REVIEW OF SYSTEMS: CONSTITUTIONAL: Weakness, fatigue, fever. NEUROLOGIC: [ Negative.] HEENT: [ Negative.] CARDIAC: [Negative.] PULMONARY: Shortness of breath, chest congestion, cough, and yellow phlegm production. GI: Poor appetite. : [Negative.] RHEUMATOLOGIC: [ Negative.] IMMUNOLOGIC: [ Negative.] ENDOCRINE: [Negative. ] DERMATOLOGIC: [Negative.] Past Medical History Past Medical History: Asthma, CVA/TIA, Diabetes Mellitus, GERD/Reflux, Hyperlipidemia, Hypertension, Osteoarthritis (OA), Sleep Apnea/CPAP/BIPAP Additional Past Medical History / Comment(s): Back pain, sciatic nerve pain, tinnitus, neuropathy, occasional sinus problems. Hx agent orange exposure, TIA 2009 or 2010, bells palsy 2002. No CPAP use. History of Any Multi-Drug Resistant Organisms: None Reported Past Surgical History: Back Surgery, Cholecystectomy Additional Past Surgical History / Comment(s): Epidural injections in back, bilateral carpal tunnel release, bilateral knee arthroscopy, trigger finger release bilateral thumbs, right eye injury with surgery to repair. Past Anesthesia/Blood Transfusion Reactions: Postoperative Nausea & Vomiting (PONV) Past Psychological History: PTSD Smoking Status: Never smoker Past Alcohol Use History: Rare Past Drug Use History: None Reported - Past Family History Mother Family Medical History: Osteoarthritis (OA) Father Family Medical History: Diabetes Mellitus Additional Family Medical History / Comment(s): , had Parkinsons, etoh, smoked. Sister(s) Family Medical History: Liver Disease Additional Family Medical History / Comment(s): Hepatitis B - in 1981. Brother(s) Family Medical History: Liver Disease Additional Family Medical History / Comment(s): etoh Medications and Allergies Home Medications Medication Instructions Recorded Confirmed Type Cholecalciferol [Vitamin D3 (25 1,000 unit PO DAILY 12/08/17 08/21/21 History Mcg = 1000 Iu)] Liraglutide [Victoza 3-Jamey] 1.8 mg SQ DAILY 12/08/17 08/21/21 History Multivitamins, Thera [Multivitamin 1 tab PO DAILY 12/08/17 08/21/21 History (formulary)] Omeprazole 20 mg PO DAILY 12/08/17 08/21/21 History traMADol HCL [Ultram] 50 mg PO Q6H PRN 12/08/17 08/21/21 History Insulin Degludec [Tresiba] 15 units SQ HS 11/28/18 08/21/21 History Acetaminophen [Tylenol Arthritis] 1,300 mg PO Q8H PRN 08/21/21 08/21/21 History Atorvastatin [Lipitor] 10 mg PO DAILY 08/21/21 08/21/21 History Budesonide/Formoterol Fumarate 2 puff INHALATION RT-BID 08/21/21 08/21/21 History [Symbicort 160-4.5 Mcg Inhaler] Dexamethasone 6 mg PO DAILY 08/21/21 08/21/21 History Doxycycline Hyclate 100 mg PO BID 08/21/21 08/21/21 History Fluticasone Nasal [place] [Flonase 1 spr EA NOSTRIL DAILY 08/21/21 08/21/21 History Nasal [place]] Ipratropium-Albuterol Nebulize 3 ml INHALATION RT-QID 08/21/21 08/21/21 History [Duoneb 0.5 mg-3 mg/3 ml Soln] Irbesartan [Avapro] 150 mg PO DAILY 08/21/21 08/21/21 History Repaglinide [Prandin] 1 mg PO TID 08/21/21 08/21/21 History Turmeric Root Extract [Turmeric] 500 mg PO DAILY 08/21/21 08/21/21 History Allergies Allergy/AdvReac Type Severity Reaction Status Date / Time clarithromycin [From Biaxin] Allergy Rash/Hives Verified 08/21/21 15:32 Sulfa (Sulfonamide Allergy Rash/Hives Verified 08/21/21 15:32 Antibiotics) Physical Exam Osteopathic Statement: *. No significant issues noted on an osteopathic structural exam other than those noted in the History and Physical/Consult. Vitals: Vital Signs Temp Pulse Resp BP Pulse Ox 08/21/21 14:00 115 H 22 123/68 96 08/21/21 11:48 98.2 F 131 H 24 105/70 76 L Intake and Output 08/21/21 08/21/21 08/21/21 06:59 14:59 22:59 Other: Weight 84.822 kg No acute distress, oriented 3. Patient on 4 L nasal cannula. Saturations are 95%. HEENT examination is grossly unremarkable. Neck supple. Full range of motion. No adenopathy thyromegaly or neck vein distention. Cardiovascular examination reveals regular rhythm rate. S1-S2 normal. No S3 or S4. No discernible murmur noted. Heart sounds are distant. Heart rate 115 bpm. Lungs reveal coarse bilateral rhonchi. Breath sounds equal. No crackles. No wheezes. Abdomen soft bowel sounds are heard. No masses or tenderness. Extremities are intact. No cyanosis clubbing or edema. Skin is without rash or lesion. Neurologic examination is brief but nonfocal. Results - Laboratory Findings CBC and BMP: 08/21/21 12:35 08/21/21 12:35 PT/INR, D-dimer PT 11.2 sec (9.0-12.0) 08/21/21 12:35 INR 1.1 (<1.2) 08/21/21 12:35 D-Dimer 0.82 mg/L FEU (<0.60) H 08/21/21 12:35 Abnormal lab findings: Abnormal Labs 08/21/21 08/21/21 08/21/21 12:35 12:35 12:35 WBC 20.6 H Plt Count 473 H Neutrophils # 18.9 H Lymphocytes # 0.9 L D-Dimer 0.82 H Sodium 129 L Potassium 6.0 H Chloride 94 L BUN 54 H Creatinine 1.51 H Glucose 126 H Plasma Lactic Acid [place] AST 65 H ALT 79 H Alkaline Phosphatase 267 H 08/21/21 08/21/21 12:35 17:07 WBC Plt Count Neutrophils # Lymphocytes # D-Dimer Sodium Potassium Chloride BUN Creatinine Glucose Plasma Lactic Acid [place] 2.2 H* 2.2 H* AST ALT Alkaline Phosphatase - Diagnostic Findings Chest x-ray: image reviewed CT scan - chest: image reviewed Assessment and Plan Assessment: Acute hypoxemic respiratory failure secondary to coronavirus associated pneumonia, complicated by right lower lobe pulmonary embolism. History of diabetes mellitus. History of hypertension. History of hyperlipidemia. History of osteoarthritis. History of sleep apnea syndrome, not currently using CPAP. History of gastroesophageal reflux disease. History of mild asthma. Plan: Plan dated 08/21/2021. The patient will be maintained on albuterol inhaler, vitamin C, vitamin D3, and zinc, Symbicort, Decadron, and IV heparin for the time being. The patient is also maintained on his usual home medications. Additional recommendations and suggestions are forthcoming. Prognosis is guarded. We will continue to follow the patient make recommendations where appropriate. Labs, x-rays, and all medications are reviewed. The patient is not a candidate for REM. Time with Patient: Greater than 30
[2021-08-21 20:23] LABS: Calcium 8.3 mg/dL (8.4-10.2); Potassium 5.7 mmol/L (3.5-5.1)
[2021-08-21 20:28] LABS: Glucose,Whole Blood 225 mg/dL (75-99)
[2021-08-21] MEDS: CHOLECALCIFEROL 25 MCG (1000 IU) TABLET PO SCH (20:58)
[2021-08-21] MEDS: SODIUM CHLORIDE 0.9% 1,000 ML IV SCH (20:58)
[2021-08-21] MEDS: ASCORBIC ACID 500 MG TAB PO SCH (20:58)
[2021-08-21] MEDS: ZINC SULFATE 220 MG CAP PO SCH (20:58)
[2021-08-21] MEDS: INSULIN ASPART (NovoLOG) 100 UNIT/ML VIAL SQ SCH ×2 (20:59→23:09)
[2021-08-21] MEDS ORDERED: NON FORMULARY DRUG (Doxycycline Hyclate [Doxycycline Hyclate] 100 MG Tablet) PO SCH (21:00)
[2021-08-21] MEDS: SYMBICORT 160-4.5 MCG INHALER INHALATION SCH (21:04)
[2021-08-21] MEDS: INSULIN DETEMIR (LEVEMIR) 100 UNIT/ML SYR SQ SCH (23:00)
[2021-08-21 23:01] LABS: Glucose,Whole Blood 240 mg/dL (75-99)
[2021-08-21 23:47] LABS: Glucose,Whole Blood 253 mg/dL (75-99)
[2021-08-22 01:05] LABS: Calcium 8.5 mg/dL (8.4-10.2); Potassium 5.5 mmol/L (3.5-5.1)
[2021-08-22] MEDS: ALBUTEROL HFA INHALER INHALATION SCH ×5 (04:08→20:26)
[2021-08-22 07:00] LABS: Basophils % (A) 0 %; Eosinophils % (A) 0 %; HCT 33.7 % (39.0-53.0); Lymphocytes # (A) 0.5 k/uL (1.0-4.8); Lymphocytes % (A) 5 %; MCH 29.8 pg (25.0-35.0); MCHC 34.4 g/dL (31.0-37.0); MCV 86.5 fL (80.0-100.0); Mean Platelet Volume 7.5; Monocytes # (A) 0.3 k/uL (0-1.0); Monocytes % (A) 3 %; Neutrophils # (A) 8.6 k/uL (1.3-7.7); Neutrophils % (A) 91 %; Platelet Count 345 k/uL (150-450); RDW 12.8 % (11.5-15.5); WBC 9.5 k/uL (3.8-10.6)
[2021-08-22 07:25] LABS: Glucose,Whole Blood 91 mg/dL (75-99)
[2021-08-22] MEDS: INSULIN ASPART (NovoLOG) 100 UNIT/ML VIAL SQ SCH ×4 (07:28→20:47)
[2021-08-22 07:34] LABS: INR 1.2 (<1.2); Prothrombin Time 12.2 sec (9.0-12.0)
[2021-08-22 07:42] LABS: HGB 11.6 gm/dL (13.0-17.5)
[2021-08-22] MEDS: SYMBICORT 160-4.5 MCG INHALER INHALATION SCH ×2 (08:10→20:26)
[2021-08-22] MEDS ORDERED: NON FORMULARY DRUG (Turmeric Root Extract [Turmeric] 500 MG Capsule) PO SCH (09:00)
[2021-08-22] MEDS ORDERED: NON FORMULARY DRUG (Liraglutide [Victoza 3-Pak] 0.6 MG/0.1 ML Pen.Injctr) SQ SCH (09:00)
[2021-08-22] MEDS ORDERED: IRBESARTAN 150 MG PO SCH (09:00)
[2021-08-22] MEDS ORDERED: CHOLECALCIFEROL 25 MCG (1000 IU) TABLET PO SCH (09:00)
[2021-08-22 09:19] LABS: Albumin 2.6 g/dL (3.5-5.0); Calcium 8.4 mg/dL (8.4-10.2); Magnesium 1.7 mg/dL (1.6-2.3); Phosphorus 3.8 mg/dL (2.5-4.5); Potassium 5.4 mmol/L (3.5-5.1); Total Bilirubin 0.5 mg/dL (0.2-1.3)
[2021-08-22 09:30] LABS: C Reactive Protein 15.9 mg/dL (<1.0)
[2021-08-22] MEDS: DEXAMETHASONE SOD PHOSPHATE 10 MG/ML 1 ML VIAL IV SCH (09:37)
[2021-08-22] MEDS: CHOLECALCIFEROL 25 MCG (1000 IU) TABLET PO SCH (09:37)
[2021-08-22] MEDS: FAMOTIDINE 20 MG TAB PO SCH (09:38)
[2021-08-22] MEDS: ASCORBIC ACID 500 MG TAB PO SCH (09:38)
[2021-08-22] MEDS: SODIUM CHLORIDE 0.9% 1,000 ML IV SCH ×4 (09:38→20:47)
[2021-08-22] MEDS: PANTOPRAZOLE 40 MG TABLET PO SCH (09:38)
[2021-08-22] MEDS: MULTIVITAMINS, THERA 1 EACH TAB PO SCH (09:38)
[2021-08-22] MEDS: ZINC SULFATE 220 MG CAP PO SCH (09:38)
[2021-08-22] MEDS: ATORVASTATIN 10 MG TAB PO SCH (09:42)
[2021-08-22] MEDS: HEPARIN SOD,PORK IN 0.45% NACL 25,000 UNIT in 0.45% NACL 1 250ML.BAG IV SCH (09:55)
[2021-08-22] MEDS: FLUTICASONE 50MCG/SPRAY NASAL 16GM EA NOSTRIL SCH (11:21)
--- NOTE | 2021-08-22 11:28 | XR ---
EXAMINATION TYPE: XR chest 1V DATE OF EXAM: 08/22/2021 COMPARISON: 08/21/2021 HISTORY: 70 years Male. STUDY INDICATION GIVEN: pneumonia . TECHNIQUE: AP chest radiograph IMPRESSION: Decreased bilateral multifocal airspace and interstitial opacities likely on the basis of multifocal pneumonia and/or atelectasis with mild interstitial edema. No pneumothorax or large effusion. Prominent cardiac silhouette accentuated by low lung volumes similar to prior study. No acute osseous abnormality.
[2021-08-22 11:45] LABS: Glucose,Whole Blood 110 mg/dL (75-99)
[2021-08-22 12:47] LABS: Calcium 8.7 mg/dL (8.4-10.2); Potassium 5.1 mmol/L (3.5-5.1)
--- NOTE | 2021-08-22 13:36 | P.PN ---
Subjective Progress Note Date: 08/22/21 Principal diagnosis: COVID-19 pneumonia 70-year-old male, who is seen in the emergency department, on August 21. He came in with complaints of shortness of breath. He's been sick for at least 2 weeks maybe longer. He initially developed cold symptoms. He apparently tested positive for coronavirus 9 days ago. He had a cough or chest congestion, and minimal yellow phlegm production. He apparently is been monitoring his oxygen at home, and over the last 3 days, his saturations dropped into the 70s. His daughter who is a nurse, told him to get into the emergency room to be evaluated. In addition, the patient has chest congestion, fever, and significant fatigue and weakness. He complains of diffuse muscle aches. He denied any chest pain or chest discomfort. He was given Decadron is been taking over the last 7 days. He also has been using breathing treatments at home with both albuterol sulfate and ipratropium bromide. The patient was evaluated in the emergency room, was admitted with a diagnosis of coronavirus associated pneumonia, and a CT angiogram showed a pulmonary embolism in the right lower lobe. His past medical history is positive for diabetes and hypertension. He used to smoke but quit more than 30 years ago. He has been vaccinated back in February, with the Pfizer vaccine, 2. Currently, he's on 4 L nasal cannula, IV heparin, and a saline IV at KVO. White count was 20.6, hemoglobin 15, hematocrit 43.4, and platelet count 473,000. D-dimer was 0.82. Sodium 129, potassium 6, chlorides 94, CO2 22, anion gap 13, BUN 54, and creatinine 1.51. Lactic acid was 2.2 and the repeat was also 2.2. N-terminal proBNP was normal. And troponin was negative. Chest x-ray shows diffuse bilateral infiltrates. CT angiogram was positive for diffuse extensive pulmonary infiltrates, and a possible right lower lobe pulmonary embolism. The patient is seen today 08/22/2021 in follow-up in the intensive care unit as a regular medical floor overflow. He is currently sitting up in bed. Awake and alert in no acute distress. He is maintaining O2 saturations in the 90s on 10 L high flow nasal cannula. He does desaturate into the low 80s with any significant activity. He is fairly comfortable at rest. He remains on a heparin drip for possible right lower lobe pulmonary emboli. He has 0.9 normal saline at 70 mL per hour. Follow-up chest x-ray reveals improving bilateral multifocal airspace and interstitial opacities. White count 9.5. Hemoglobin 11.6. Lymphs at 0.5. D-dimer 0.43. Sodium 134. Potassium 5.1. Creatinine 1.16. AST 48. ALT 64. Alk phos 168. LDH 72. C-reactive protein 15.9. He remains on bronchodilators, vitamin supplements, Decadron. Objective - Vital Signs Vital signs: Vital Signs Temp 97.8 F 08/22/21 00:00 Pulse 60 08/22/21 04:00 Resp 28 H 08/22/21 04:00 BP 125/70 08/22/21 04:00 Pulse Ox 89 L 08/22/21 01:00 Intake & Output 08/21/21 08/22/21 08/22/21 18:59 06:59 18:59 Intake Total 467.694 80.301 Output Total 320 Balance 147.694 80.301 Weight 84.822 kg 86.4 kg 86.4 kg Intake: IV 300 Sodium Chloride 0.9% 1, 300 000 ml @ 150 mls/hr IV . Q6H40M ROXI Rx#:[id number] Intake, IV Titration 167.694 80.301 Amount Heparin Sod,Pork in 0.45% 167.694 80.301 NaCl 25,000 unit In 0.45 % NaCl 1 250ml.bag @ 18 UNITS/KG/HR 15.268 mls/hr IV .[id number] ROXI Rx#: [id number] Output: Urine 320 - Exam GENERAL EXAM: Alert, oriented, very pleasant 70-year-old gentleman, on 10 L high flow nasal cannula, comfortable in no apparent distress. HEAD: Normocephalic. EYES: Normal reaction of pupils, equal size. NOSE: Clear with pink turbinates. THROAT: No erythema or exudates. NECK: No masses, no JVD. CHEST: No chest wall deformity. LUNGS: Equal air entry with coarse crackles in the bilateral bases. CVS: S1 and S2 normal with no audible murmur, regular rhythm. ABDOMEN: No hepatosplenomegaly, normal bowel sounds, no guarding or rigidity. SPINE: No scoliosis or deformity SKIN: No rashes CENTRAL NERVOUS SYSTEM: No focal deficits, tone is normal in all 4 extremities. EXTREMITIES: There is no peripheral edema. No clubbing, no cyanosis. Peripheral pulses are intact. - Labs CBC & Chem 7: 08/22/21 06:44 08/22/21 11:39 Labs: Abnormal Lab Results - Last 24 Hours (Table) 08/21/21 08/21/21 08/21/21 Range/Units 12:35 17:07 18:39 RBC (4.30-5.90) m/uL Hgb (13.0-17.5) gm/dL Hct (39.0-53.0) % Neutrophils # (1.3-7.7) k/uL Lymphocytes # (1.0-4.8) k/uL PT (9.0-12.0) sec INR (<1.2) APTT (22.0-30.0) sec D-Dimer 0.82 H (<0.60) mg/L FEU Sodium 127 L (137-145) mmol/L Potassium 5.7 H (3.5-5.1) mmol/L Chloride (98-107) mmol/L Carbon Dioxide 17 L (22-30) mmol/L BUN 48 H (9-20) mg/dL Creatinine 1.40 H (0.66-1.25) mg/dL Glucose 182 H (74-99) mg/dL POC Glucose (mg/dL) (75-99) mg/dL Plasma Lactic Acid Milton 2.2 H* (0.7-2.0) mmol/L Calcium 8.3 L (8.4-10.2) mg/dL ALT (4-49) U/L Alkaline Phosphatase (38-126) U/L Lactate Dehydrogenase (313-618) U/L C-Reactive Protein (<1.0) mg/dL Total Protein (6.3-8.2) g/dL Albumin (3.5-5.0) g/dL 08/21/21 08/21/21 08/21/21 Range/Units 20:27 22:59 23:46 RBC (4.30-5.90) m/uL Hgb (13.0-17.5) gm/dL Hct (39.0-53.0) % Neutrophils # (1.3-7.7) k/uL Lymphocytes # (1.0-4.8) k/uL PT (9.0-12.0) sec INR (<1.2) APTT (22.0-30.0) sec D-Dimer (<0.60) mg/L FEU Sodium (137-145) mmol/L Potassium (3.5-5.1) mmol/L Chloride (98-107) mmol/L Carbon Dioxide (22-30) mmol/L BUN (9-20) mg/dL Creatinine (0.66-1.25) mg/dL Glucose (74-99) mg/dL POC Glucose (mg/dL) 225 H 240 H 253 H (75-99) mg/dL Plasma Lactic Acid Milton (0.7-2.0) mmol/L Calcium (8.4-10.2) mg/dL ALT (4-49) U/L Alkaline Phosphatase (38-126) U/L Lactate Dehydrogenase (313-618) U/L C-Reactive Protein (<1.0) mg/dL Total Protein (6.3-8.2) g/dL Albumin (3.5-5.0) g/dL 08/21/21 08/21/21 08/21/21 Range/Units 23:55 23:55 23:55 RBC (4.30-5.90) m/uL Hgb (13.0-17.5) gm/dL Hct (39.0-53.0) % Neutrophils # (1.3-7.7) k/uL Lymphocytes # (1.0-4.8) k/uL PT (9.0-12.0) sec INR (<1.2) APTT 82.1 H (22.0-30.0) sec D-Dimer (<0.60) mg/L FEU Sodium 127 L (137-145) mmol/L Potassium 5.5 H (3.5-5.1) mmol/L Chloride 97 L (98-107) mmol/L Carbon Dioxide 21 L (22-30) mmol/L BUN 46 H (9-20) mg/dL Creatinine 1.32 H (0.66-1.25) mg/dL Glucose 242 H (74-99) mg/dL POC Glucose (mg/dL) (75-99) mg/dL Plasma Lactic Acid Milton 2.6 H* (0.7-2.0) mmol/L Calcium (8.4-10.2) mg/dL ALT (4-49) U/L Alkaline Phosphatase (38-126) U/L Lactate Dehydrogenase (313-618) U/L C-Reactive Protein (<1.0) mg/dL Total Protein (6.3-8.2) g/dL Albumin (3.5-5.0) g/dL 08/22/21 08/22/21 08/22/21 Range/Units 06:44 06:44 06:44 RBC 3.90 L (4.30-5.90) m/uL Hgb 11.6 L D (13.0-17.5) gm/dL Hct 33.7 L (39.0-53.0) % Neutrophils # 8.6 H (1.3-7.7) k/uL Lymphocytes # 0.5 L (1.0-4.8) k/uL PT 12.2 H (9.0-12.0) sec INR 1.2 H (<1.2) APTT (22.0-30.0) sec D-Dimer (<0.60) mg/L FEU Sodium 133 L (137-145) mmol/L Potassium 5.4 H (3.5-5.1) mmol/L Chloride (98-107) mmol/L Carbon Dioxide (22-30) mmol/L BUN 44 H (9-20) mg/dL Creatinine (0.66-1.25) mg/dL Glucose 111 H (74-99) mg/dL POC Glucose (mg/dL) (75-99) mg/dL Plasma Lactic Acid Milton (0.7-2.0) mmol/L Calcium (8.4-10.2) mg/dL ALT 64 H (4-49) U/L Alkaline Phosphatase 186 H (38-126) U/L Lactate Dehydrogenase 782 H (313-618) U/L C-Reactive Protein 15.9 H (<1.0) mg/dL Total Protein 6.0 L (6.3-8.2) g/dL Albumin 2.6 L (3.5-5.0) g/dL 08/22/21 08/22/21 08/22/21 Range/Units 06:44 11:39 11:44 RBC (4.30-5.90) m/uL Hgb (13.0-17.5) gm/dL Hct (39.0-53.0) % Neutrophils # (1.3-7.7) k/uL Lymphocytes # (1.0-4.8) k/uL PT (9.0-12.0) sec INR (<1.2) APTT (22.0-30.0) sec D-Dimer (<0.60) mg/L FEU Sodium 134 L (137-145) mmol/L Potassium (3.5-5.1) mmol/L Chloride (98-107) mmol/L Carbon Dioxide (22-30) mmol/L BUN 42 H (9-20) mg/dL Creatinine (0.66-1.25) mg/dL Glucose 117 H (74-99) mg/dL POC Glucose (mg/dL) 110 H (75-99) mg/dL Plasma Lactic Acid Milton 2.2 H* (0.7-2.0) mmol/L Calcium (8.4-10.2) mg/dL ALT (4-49) U/L Alkaline Phosphatase (38-126) U/L Lactate Dehydrogenase (313-618) U/L C-Reactive Protein (<1.0) mg/dL Total Protein (6.3-8.2) g/dL Albumin (3.5-5.0) g/dL Assessment and Plan Assessment: 1 Acute hypoxemic respiratory failure secondary to COVID-19 pneumonia, complicated by right lower lobe pulmonary embolism. Vaccinated with Pfizer 2 in February 2021. 2 Acute right lower lobe pulmonary emboli secondary to COVID-19 infection, currently on a heparin drip 3 Diabetes mellitus 4 Hypertension 5 Hyperlipidemia 6 Show arthritis 7 History of obstructive sleep apnea, not utilizing CPAP 8 Gastroesophageal reflux disease 9 History of mild intermittent chronic bronchial asthma Plan: The patient was seen and evaluated by Dr. Taylor Chest x-ray and labs reviewed Continue the current treatment plan Titrate the FiO2 as tolerated We will continue to follow I, the cosigning physician, performed a history & physical examination of the patient. Lungs sounds with coarse crackles in the bilateral bases. Maintaining good O2 saturations in the 90s on 10 L high flow nasal cannula. I discussed the assessment and plan of care with my nurse practitioner, Merline Mitchell. I attest to the above note as dictated by her.
[2021-08-22 17:04] LABS: Glucose,Whole Blood 163 mg/dL (75-99)
--- NOTE | 2021-08-22 17:29 | P.PN ---
Subjective Progress Note Date: 08/22/21 (delayed charting seen at 10am) Principal diagnosis: shortness of breath Is a 70-year-old male with a history of diabetes mellitus type 2, GERD, hypertension, dyslipidemia, and multiple other comorbid conditions who presented to the ER with complaints of worsening oxygenation. He has been diagnosed with cold. Approximately one week prior to admission. He had undergone 7 days of Decadron as an outpatient and have been monitoring his pulse ox and he was noted to be in the low 70s. He therefore proceeded to the hospital. On arrival he underwent an extensive evaluation. His O2 sat was 7076 on room air with a pulse rate in the 131. Laboratory analysis showed a white blood cell count of 20, sodium 129, potassium 6, chloride 94, BUN 54, creatinine 1.54, and lactic acid 2.2. Mildly elevated liver enzymes with an ALT is 65 and an AST of 79. CTA of the stress test demonstrated possible right lower lobe pulmonary artery embolism, and extensive bilateral interstitial pneumonia. EKG demonstrated sinus tachycardia. He was treated with insulin, glucose, sodium bicarb. Was given a dose of Kayexalate and 1 L of IV fluids. His potassium improved his kidney function was getting better. He did have increasing oxygen requirements and the morning of 08/22. Patient seen and examined at bedside. He reports improvement in his breathing compared to yesterday. He denies any cough. Denies any nausea or vomiting. He did eat a few bites her breakfast. No diarrhea. General: Ill appearing, mild distress, appears at stated age Derm: warm, dry Head: atraumatic, normocephalic, symmetric Eyes: EOMI, no lid lag, anicteric sclera Mouth: no lip lesion, mucus membranes moist Cardiovascular: S1S2 reg, no murmur, positive posterior tibial pulse bilateral, Lungs: Coarse breath sounds bilaterally, 2 word conversational dyspnea, + accessory muscle use, Abdominal: soft, nontender to palpation, no guarding, no appreciable organomegaly Ext: no gross muscle atrophy, no edema, no contractures Neuro: CN II-XI grossly intact, no focal neuro deficits Psych: Alert, oriented, appropriate affect COVID 19 pneumonia, in vaccinated individual Acute Hypoxic Respiratory Failure Transaminitis Lactic acidosis - Decadron - pulm recs appreciated - zinc, vit C, vit D - follow inflammatory markers - Not a candidate for Remdesivir due to length from onset of symptoms - consider Jordi Right lower lobe pulmonary artery embolsim - heparin gtt - pulm recs TERESA vs CKD, baseline undetermined Hyponatremia - suspect due to dehydration and insensible water losses - IVF fluids - lyes q6h - hold irbasartan - consider nephro consult if worsening - patient with hx of Hypkalemia in the past, has still been on irbasartan DM 2 - Sliding scale - long acting insulin - follow BS - check A1C - Hold Prandin, victoza Chronic: Asthma GERD HTN HLD MECHELLE Leukocytosis, resolved Hyperkalemia, resolved DVT prophylaxis: heparin gtt Discussed with: patient, nursing, Anticipated discharge date: undetermined Anticipated discharge place: undetermined A total of 37 minutes was spent on the care of this complex patient more than 50% of the time was spent in counseling and care coordination. Objective - Vital Signs Vital signs: Vital Signs Temp 97.8 F 08/22/21 00:00 Pulse 84 08/22/21 14:00 Resp 33 H 08/22/21 14:00 BP 145/70 08/22/21 14:00 Pulse Ox 93 L 08/22/21 14:00 Intake & Output 08/21/21 08/22/21 08/22/21 18:59 06:59 18:59 Intake Total 467.694 80.301 Output Total 320 1850 Balance 147.694 -1769.699 Weight 84.822 kg 86.4 kg 86.4 kg Intake: IV 300 Sodium Chloride 0.9% 1, 300 000 ml @ 150 mls/hr IV . Q6H40M ROX[facility] Rx#:[id number] Intake, IV Titration 167.694 80.301 Amount Heparin Sod,Pork in 0.45% 167.694 80.301 NaCl 25,000 unit In 0.45 % NaCl 1 250ml.bag @ 18 UNITS/KG/HR 15.268 mls/hr IV .[id number] ROXI Rx#: [id number] Output: Urine 320 1850 Other: Voiding Method Urinal - Labs CBC & Chem 7: 08/22/21 06:44 08/22/21 11:39 Labs: Abnormal Lab Results - Last 24 Hours (Table) 08/21/21 08/21/21 08/21/21 Range/Units 18:39 20:27 22:59 RBC (4.30-5.90) m/uL Hgb (13.0-17.5) gm/dL Hct (39.0-53.0) % Neutrophils # (1.3-7.7) k/uL Lymphocytes # (1.0-4.8) k/uL PT (9.0-12.0) sec INR (<1.2) APTT (22.0-30.0) sec Sodium 127 L (137-145) mmol/L Potassium 5.7 H (3.5-5.1) mmol/L Chloride (98-107) mmol/L Carbon Dioxide 17 L (22-30) mmol/L BUN 48 H (9-20) mg/dL Creatinine 1.40 H (0.66-1.25) mg/dL Glucose 182 H (74-99) mg/dL POC Glucose (mg/dL) 225 H 240 H (75-99) mg/dL Plasma Lactic Acid Milton (0.7-2.0) mmol/L Calcium 8.3 L (8.4-10.2) mg/dL Ferritin (22.0-322.0) ng/mL ALT (4-49) U/L Alkaline Phosphatase (38-126) U/L Lactate Dehydrogenase (313-618) U/L C-Reactive Protein (<1.0) mg/dL Total Protein (6.3-8.2) g/dL Albumin (3.5-5.0) g/dL Procalcitonin (0.02-0.09) ng/mL 08/21/21 08/21/21 08/21/21 Range/Units 23:46 23:55 23:55 RBC (4.30-5.90) m/uL Hgb (13.0-17.5) gm/dL Hct (39.0-53.0) % Neutrophils # (1.3-7.7) k/uL Lymphocytes # (1.0-4.8) k/uL PT (9.0-12.0) sec INR (<1.2) APTT (22.0-30.0) sec Sodium 127 L (137-145) mmol/L Potassium 5.5 H (3.5-5.1) mmol/L Chloride 97 L (98-107) mmol/L Carbon Dioxide 21 L (22-30) mmol/L BUN 46 H (9-20) mg/dL Creatinine 1.32 H (0.66-1.25) mg/dL Glucose 242 H (74-99) mg/dL POC Glucose (mg/dL) 253 H (75-99) mg/dL Plasma Lactic Acid Milton 2.6 H* (0.7-2.0) mmol/L Calcium (8.4-10.2) mg/dL Ferritin (22.0-322.0) ng/mL ALT (4-49) U/L Alkaline Phosphatase (38-126) U/L Lactate Dehydrogenase (313-618) U/L C-Reactive Protein (<1.0) mg/dL Total Protein (6.3-8.2) g/dL Albumin (3.5-5.0) g/dL Procalcitonin (0.02-0.09) ng/mL 08/21/21 08/22/21 08/22/21 Range/Units 23:55 06:44 06:44 RBC 3.90 L (4.30-5.90) m/uL Hgb 11.6 L D (13.0-17.5) gm/dL Hct 33.7 L (39.0-53.0) % Neutrophils # 8.6 H (1.3-7.7) k/uL Lymphocytes # 0.5 L (1.0-4.8) k/uL PT (9.0-12.0) sec INR (<1.2) APTT 82.1 H (22.0-30.0) sec Sodium 133 L (137-145) mmol/L Potassium 5.4 H (3.5-5.1) mmol/L Chloride (98-107) mmol/L Carbon Dioxide (22-30) mmol/L BUN 44 H (9-20) mg/dL Creatinine (0.66-1.25) mg/dL Glucose 111 H (74-99) mg/dL POC Glucose (mg/dL) (75-99) mg/dL Plasma Lactic Acid Milton (0.7-2.0) mmol/L Calcium (8.4-10.2) mg/dL Ferritin 956.0 H (22.0-322.0) ng/mL ALT 64 H (4-49) U/L Alkaline Phosphatase 186 H (38-126) U/L Lactate Dehydrogenase 782 H (313-618) U/L C-Reactive Protein 15.9 H (<1.0) mg/dL Total Protein 6.0 L (6.3-8.2) g/dL Albumin 2.6 L (3.5-5.0) g/dL Procalcitonin (0.02-0.09) ng/mL 08/22/21 08/22/21 08/22/21 Range/Units 06:44 06:44 11:39 RBC (4.30-5.90) m/uL Hgb (13.0-17.5) gm/dL Hct (39.0-53.0) % Neutrophils # (1.3-7.7) k/uL Lymphocytes # (1.0-4.8) k/uL PT 12.2 H (9.0-12.0) sec INR 1.2 H (<1.2) APTT (22.0-30.0) sec Sodium 134 L (137-145) mmol/L Potassium (3.5-5.1) mmol/L Chloride (98-107) mmol/L Carbon Dioxide (22-30) mmol/L BUN 42 H (9-20) mg/dL Creatinine (0.66-1.25) mg/dL Glucose 117 H (74-99) mg/dL POC Glucose (mg/dL) (75-99) mg/dL Plasma Lactic Acid Milton 2.2 H* (0.7-2.0) mmol/L Calcium (8.4-10.2) mg/dL Ferritin (22.0-322.0) ng/mL ALT (4-49) U/L Alkaline Phosphatase (38-126) U/L Lactate Dehydrogenase (313-618) U/L C-Reactive Protein (<1.0) mg/dL Total Protein (6.3-8.2) g/dL Albumin (3.5-5.0) g/dL Procalcitonin (0.02-0.09) ng/mL 08/22/21 08/22/21 08/22/21 Range/Units 11:39 11:44 17:02 RBC (4.30-5.90) m/uL Hgb (13.0-17.5) gm/dL Hct (39.0-53.0) % Neutrophils # (1.3-7.7) k/uL Lymphocytes # (1.0-4.8) k/uL PT (9.0-12.0) sec INR (<1.2) APTT (22.0-30.0) sec Sodium (137-145) mmol/L Potassium (3.5-5.1) mmol/L Chloride (98-107) mmol/L Carbon Dioxide (22-30) mmol/L BUN (9-20) mg/dL Creatinine (0.66-1.25) mg/dL Glucose (74-99) mg/dL POC Glucose (mg/dL) 110 H 163 H (75-99) mg/dL Plasma Lactic Acid Milton (0.7-2.0) mmol/L Calcium (8.4-10.2) mg/dL Ferritin (22.0-322.0) ng/mL ALT (4-49) U/L Alkaline Phosphatase (38-126) U/L Lactate Dehydrogenase (313-618) U/L C-Reactive Protein (<1.0) mg/dL Total Protein (6.3-8.2) g/dL Albumin (3.5-5.0) g/dL Procalcitonin 0.26 H (0.02-0.09) ng/mL Microbiology - Last 24 Hours (Table) 08/21/21 12:35 Blood Culture - Preliminary Blood No Growth after 24 hours
[2021-08-22 20:43] LABS: Glucose,Whole Blood 223 mg/dL (75-99)
[2021-08-22] MEDS: INSULIN DETEMIR (LEVEMIR) 100 UNIT/ML SYR SQ SCH (20:46)
[2021-08-23] MEDS: ALBUTEROL HFA INHALER INHALATION SCH ×7 (00:22→23:24)
[2021-08-23 03:51] LABS: HCT 34.1 % (39.0-53.0); HGB 11.7 gm/dL (13.0-17.5); MCH 30.6 pg (25.0-35.0); MCHC 34.5 g/dL (31.0-37.0); MCV 88.6 fL (80.0-100.0); Mean Platelet Volume 7.3; Platelet Count 410 k/uL (150-450); RBC 3.84 m/uL (4.30-5.90); RDW 13.6 % (11.5-15.5); WBC 13.6 k/uL (3.8-10.6)
[2021-08-23] MEDS: SODIUM CHLORIDE 0.9% 1,000 ML IV SCH (03:51)
[2021-08-23] MEDS: HEPARIN SOD,PORK IN 0.45% NACL 25,000 UNIT in 0.45% NACL 1 250ML.BAG IV SCH (04:08)
[2021-08-23 04:17] LABS: Albumin 2.5 g/dL (3.5-5.0); Calcium 8.4 mg/dL (8.4-10.2); Magnesium 1.7 mg/dL (1.6-2.3); Phosphorus 3.3 mg/dL (2.5-4.5); Potassium 4.8 mmol/L (3.5-5.1); Total Bilirubin 0.4 mg/dL (0.2-1.3); Total Protein 5.8 g/dL (6.3-8.2)
[2021-08-23 04:35] LABS: Glucose,Whole Blood 63 mg/dL (75-99)
[2021-08-23 04:55] LABS: Glucose,Whole Blood 97 mg/dL (75-99)
[2021-08-23] MEDS: BENZONATATE 100 MG CAP PO PRN ×2 (05:10→21:30)
[2021-08-23 06:44] LABS: Glucose,Whole Blood 167 mg/dL (75-99)
[2021-08-23] MEDS: INSULIN ASPART (NovoLOG) 100 UNIT/ML VIAL SQ SCH ×4 (07:14→21:00)
--- NOTE | 2021-08-23 07:42 | P.PN ---
Subjective Progress Note Date: 08/23/21 70-year-old male, who is seen in the emergency department, on August 21. He came in with complaints of shortness of breath. He's been sick for at least 2 weeks maybe longer. He initially developed cold symptoms. He apparently tested positive for coronavirus 9 days ago. He had a cough or chest congestion, and minimal yellow phlegm production. He apparently is been monitoring his oxygen at home, and over the last 3 days, his saturations dropped into the 70s. His daughter who is a nurse, told him to get into the emergency room to be evaluated. In addition, the patient has chest congestion, fever, and significant fatigue and weakness. He complains of diffuse muscle aches. He denied any chest pain or chest discomfort. He was given Decadron is been taking over the last 7 days. He also has been using breathing treatments at home with both albuterol sulfate and ipratropium bromide. The patient was evaluated in the emergency room, was admitted with a diagnosis of coronavirus associated pneumonia, and a CT angiogram showed a pulmonary embolism in the right lower lobe. His past medical history is positive for diabetes and hypertension. He used to smoke but quit more than 30 years ago. He has been vaccinated back in February, with the [employer] vaccine, 2. Currently, he's on 4 L nasal cannula, IV heparin, and a saline IV at [facility]. White count was 20.6, hemoglobin 15, hematocrit 43.4, and platelet count 473,000. D-dimer was 0.82. Sodium 129, potassium 6, chlorides 94, CO2 22, anion gap 13, BUN 54, and creatinine 1.51. Lactic acid was 2.2 and the repeat was also 2.2. N-terminal proBNP was normal. And troponin was negative. Chest x-ray shows diffuse bilateral infiltrates. CT angiogram was positive for diffuse extensive pulmonary infiltrates, and a possible right lower lobe pulmonary embolism. The patient is seen today 08/22/2021 in follow-up in the intensive care unit as a regular medical floor overflow. He is currently sitting up in bed. Awake and alert in no acute distress. He is maintaining O2 saturations in the 90s on 10 L high flow nasal cannula. He does desaturate into the low 80s with any significant activity. He is fairly comfortable at rest. He remains on a heparin drip for possible right lower lobe pulmonary emboli. He has 0.9 normal saline at 70 mL per hour. Follow-up chest x-ray reveals improving bilateral multifocal airspace and interstitial opacities. White count 9.5. Hemoglobin 11.6. Lymphs at 0.5. D-dimer 0.43. Sodium 134. Potassium 5.1. Creatinine 1.16. AST 48. ALT 64. Alk phos 168. LDH 72. C-reactive protein 15.9. He remains on bronchodilators, vitamin supplements, Decadron. 08/23/2021, the patient is being seen for a follow-up in intensive care unit. For now, the patient is on oxygen at 9 L high flow. Current pulse ox is ranging between 89-91%. As mentioned earlier, this patient has COVID 19 related pneu monia and the patient also being anticoagulated for a possible right lower lobe pulmonary embolism. IV fluids are still running at 70 mL an hour of normal saline. Earlier this morning at around 4:00, the patient had a bout of hypoglycemia and the sugar was 53. He was given D50 and subsequent blood sugars improved. Note that the patient is diabetic. He is breathing is labored and the patient gets short of breath with activity and while talking longer sentences. On his blood work today, is electrolytes are all normal, his LFTs are essentially stable and normal, inflammatory markers from yesterday was noted. LDH was 782 with a CRP of 15.9. The patient also remains on Decadron 6 mg IV every 24 hours. The patient is on anticoagulation with IV heparin. He is currently on Levemir insulin 15 units at bedtime and addition to a sliding scale coverage. IV fluids are running at 150 mL an hour. Noted the patient d-dimer has been essentially low. Objective - Vital Signs Vital signs: Vital Signs Temp 98.5 F 08/23/21 04:00 Pulse 72 08/23/21 04:00 Resp 16 08/23/21 04:00 BP 143/70 08/23/21 04:00 Pulse Ox 95 08/23/21 04:00 Intake & Output 08/22/21 08/23/21 08/23/21 18:59 06:59 18:59 Intake Total 80.301 1147.237 Output Total 2300 500 Balance -2219.699 647.237 Weight 86.4 kg 85.9 kg Intake: IV 900 Sodium Chloride 0.9% 1, 900 000 ml @ 150 mls/hr IV . Q6H40M ROXI Rx#:[id number] Intake, IV Titration 80.301 247.237 Amount Heparin Sod,Pork in 0.45% 80.301 247.237 NaCl 25,000 unit In 0.45 % NaCl 1 250ml.bag @ 18 UNITS/KG/HR 15.268 mls/hr IV .[id number] ROXI Rx#: [id number] Output: Urine 2300 500 Other: Voiding Method Urinal Urinal - Exam GENERAL EXAM: Alert, oriented, very pleasant 70-year-old gentleman, on 10 L high flow nasal cannula, comfortable in no apparent distress. HEAD: Normocephalic. EYES: Normal reaction of pupils, equal size. NOSE: Clear with pink turbinates. THROAT: No erythema or exudates. NECK: No masses, no JVD. CHEST: No chest wall deformity. LUNGS: Equal air entry with coarse crackles in the bilateral bases. CVS: S1 and S2 normal with no audible murmur, regular rhythm. ABDOMEN: No hepatosplenomegaly, normal bowel sounds, no guarding or rigidity. SPINE: No scoliosis or deformity SKIN: No rashes CENTRAL NERVOUS SYSTEM: No focal deficits, tone is normal in all 4 extremities. EXTREMITIES: There is no peripheral edema. No clubbing, no cyanosis. Peripheral pulses are intact. - Labs CBC & Chem 7: 08/23/21 03:28 08/23/21 03:28 Labs: Abnormal Lab Results - Last 24 Hours (Table) 08/22/21 08/22/21 08/22/21 Range/Units 06:44 06:44 06:44 WBC (3.8-10.6) k/uL RBC 3.90 L (4.30-5.90) m/uL Hgb 11.6 L D (13.0-17.5) gm/dL Hct 33.7 L (39.0-53.0) % Neutrophils # 8.6 H (1.3-7.7) k/uL Lymphocytes # 0.5 L (1.0-4.8) k/uL PT 12.2 H (9.0-12.0) sec INR 1.2 H (<1.2) APTT (22.0-30.0) sec Sodium 133 L (137-145) mmol/L Potassium 5.4 H (3.5-5.1) mmol/L BUN 44 H (9-20) mg/dL Glucose 111 H (74-99) mg/dL POC Glucose (mg/dL) (75-99) mg/dL Plasma Lactic Acid Milton (0.7-2.0) mmol/L Ferritin 956.0 H (22.0-322.0) ng/mL ALT 64 H (4-49) U/L Alkaline Phosphatase 186 H (38-126) U/L Lactate Dehydrogenase 782 H (313-618) U/L C-Reactive Protein 15.9 H (<1.0) mg/dL Total Protein 6.0 L (6.3-8.2) g/dL Albumin 2.6 L (3.5-5.0) g/dL Procalcitonin (0.02-0.09) ng/mL 08/22/21 08/22/21 08/22/21 Range/Units 06:44 11:39 11:39 WBC (3.8-10.6) k/uL RBC (4.30-5.90) m/uL Hgb (13.0-17.5) gm/dL Hct (39.0-53.0) % Neutrophils # (1.3-7.7) k/uL Lymphocytes # (1.0-4.8) k/uL PT (9.0-12.0) sec INR (<1.2) APTT (22.0-30.0) sec Sodium 134 L (137-145) mmol/L Potassium (3.5-5.1) mmol/L BUN 42 H (9-20) mg/dL Glucose 117 H (74-99) mg/dL POC Glucose (mg/dL) (75-99) mg/dL Plasma Lactic Acid Milton 2.2 H* (0.7-2.0) mmol/L Ferritin (22.0-322.0) ng/mL ALT (4-49) U/L Alkaline Phosphatase (38-126) U/L Lactate Dehydrogenase (313-618) U/L C-Reactive Protein (<1.0) mg/dL Total Protein (6.3-8.2) g/dL Albumin (3.5-5.0) g/dL Procalcitonin 0.26 H (0.02-0.09) ng/mL 08/22/21 08/22/21 08/22/21 Range/Units 11:44 17:02 20:42 WBC (3.8-10.6) k/uL RBC (4.30-5.90) m/uL Hgb (13.0-17.5) gm/dL Hct (39.0-53.0) % Neutrophils # (1.3-7.7) k/uL Lymphocytes # (1.0-4.8) k/uL PT (9.0-12.0) sec INR (<1.2) APTT (22.0-30.0) sec Sodium (137-145) mmol/L Potassium (3.5-5.1) mmol/L BUN (9-20) mg/dL Glucose (74-99) mg/dL POC Glucose (mg/dL) 110 H 163 H 223 H (75-99) mg/dL Plasma Lactic Acid Milton (0.7-2.0) mmol/L Ferritin (22.0-322.0) ng/mL ALT (4-49) U/L Alkaline Phosphatase (38-126) U/L Lactate Dehydrogenase (313-618) U/L C-Reactive Protein (<1.0) mg/dL Total Protein (6.3-8.2) g/dL Albumin (3.5-5.0) g/dL Procalcitonin (0.02-0.09) ng/mL 08/23/21 08/23/21 08/23/21 Range/Units 03:28 03:28 03:28 WBC 13.6 H (3.8-10.6) k/uL RBC 3.84 L (4.30-5.90) m/uL Hgb 11.7 L (13.0-17.5) gm/dL Hct 34.1 L (39.0-53.0) % Neutrophils # (1.3-7.7) k/uL Lymphocytes # (1.0-4.8) k/uL PT (9.0-12.0) sec INR (<1.2) APTT 32.0 H (22.0-30.0) sec Sodium 134 L (137-145) mmol/L Potassium (3.5-5.1) mmol/L BUN 35 H (9-20) mg/dL Glucose 57 L (74-99) mg/dL POC Glucose (mg/dL) (75-99) mg/dL Plasma Lactic Acid Milton (0.7-2.0) mmol/L Ferritin (22.0-322.0) ng/mL ALT 67 H (4-49) U/L Alkaline Phosphatase 182 H (38-126) U/L Lactate Dehydrogenase (313-618) U/L C-Reactive Protein (<1.0) mg/dL Total Protein 5.8 L (6.3-8.2) g/dL Albumin 2.5 L (3.5-5.0) g/dL Procalcitonin (0.02-0.09) ng/mL 08/23/21 08/23/21 Range/Units 04:33 06:43 WBC (3.8-10.6) k/uL RBC (4.30-5.90) m/uL Hgb (13.0-17.5) gm/dL Hct (39.0-53.0) % Neutrophils # (1.3-7.7) k/uL Lymphocytes # (1.0-4.8) k/uL PT (9.0-12.0) sec INR (<1.2) APTT (22.0-30.0) sec Sodium (137-145) mmol/L Potassium (3.5-5.1) mmol/L BUN (9-20) mg/dL Glucose (74-99) mg/dL POC Glucose (mg/dL) 63 L 167 H (75-99) mg/dL Plasma Lactic Acid Milton (0.7-2.0) mmol/L Ferritin (22.0-322.0) ng/mL ALT (4-49) U/L Alkaline Phosphatase (38-126) U/L Lactate Dehydrogenase (313-618) U/L C-Reactive Protein (<1.0) mg/dL Total Protein (6.3-8.2) g/dL Albumin (3.5-5.0) g/dL Procalcitonin (0.02-0.09) ng/mL Microbiology - Last 24 Hours (Table) 08/21/21 12:35 Blood Culture - Preliminary Blood No Growth after 24 hours Assessment and Plan Plan: 1 Acute hypoxemic respiratory failure secondary to COVID-19 pneumonia, co mplicated by right lower lobe pulmonary embolism. Vaccinated with Pfizer 2 in February 2021.For now, the patient remains on Decadron 6 mg IV every 24 hours. Inflammatory markers are mildly elevated with a modest elevation of the LDH at 782 with a CRP of 15.9 and a low pro-calcitonin level of 0.26. Patient remains on IV heparin for now for a suspicious right lower lobe pulmonary artery embolism. 2 Acute right lower lobe pulmonary emboli secondary to COVID-19 infection, currently on a heparin drip, DD level was low at 0.4 3 Diabetes mellitus, currently on Levemir insulin 15 units daily at bedtime for blood sugar control, and the patient had a bout of hypoglycemia overnight 4 Hypertension 5 Hyperlipidemia 6 Osteoarthritis 7 History of obstructive sleep apnea, not utilizing CPAP 8 Gastroesophageal reflux disease 9 History of mild intermittent chronic bronchial asthma, currently on Symbicort as maintenance Plan: Keep the patient on 10 L of oxygen by nasal cannula and wean it down gradually to maintain a saturation above 90%. Chest x-ray was noted and essentially there is no major interval change. The patient but the pulmonary infiltrates consistent with COVID 19 related pneumonia. Stop the IV heparin and switch this patient to Eliquis 10 mg by mouth twice a day for one week and following that the use the dose down to 5 mg twice a day and meanwhile I think it's reasonable to obtain Dopplers of the lower extremities to rule out any DVTs. Reviews the Levemir insulin dose down to 10 units and continue covering with a fine scale coverage.educe Chest x-ray and labs reviewed Continue the current treatment plan Titrate the FiO2 as tolerated IV fluids down to 40 mL an hour and give the patient dose of Lasix 40 mg IV push 1 We will continue to follow
[2021-08-23] MEDS: SYMBICORT 160-4.5 MCG INHALER INHALATION SCH ×2 (07:43→21:04)
[2021-08-23] MEDS: ASCORBIC ACID 500 MG TAB PO SCH (11:13)
[2021-08-23] MEDS: APIXABAN 5 MG TAB PO SCH ×2 (11:15→20:59)
[2021-08-23] MEDS: ATORVASTATIN 10 MG TAB PO SCH (11:15)
[2021-08-23] MEDS: MULTIVITAMINS, THERA 1 EACH TAB PO SCH (11:16)
[2021-08-23] MEDS: CHOLECALCIFEROL 25 MCG (1000 IU) TABLET PO SCH (11:16)
[2021-08-23] MEDS: DEXAMETHASONE SOD PHOSPHATE 10 MG/ML 1 ML VIAL IV SCH (11:16)
[2021-08-23] MEDS: FLUTICASONE 50MCG/SPRAY NASAL 16GM EA NOSTRIL SCH (11:16)
[2021-08-23] MEDS: FAMOTIDINE 20 MG TAB PO SCH (11:16)
[2021-08-23] MEDS: PANTOPRAZOLE 40 MG TABLET PO SCH (11:17)
[2021-08-23] MEDS: ZINC SULFATE 220 MG CAP PO SCH (11:17)
--- NOTE | 2021-08-23 12:54 | P.PN ---
Subjective Progress Note Date: 08/23/21 Principal diagnosis: shortness of breath Patient is a 70-year-old male with a history of diabetes mellitus type 2, GERD, hypertension, dyslipidemia, and multiple other comorbid conditions who presented to the ER with complaints of worsening oxygenation. He has been diagnosed with cold. Approximately one week prior to admission. He had undergone 7 days of Decadron as an outpatient and have been monitoring his pulse ox and he was noted to be in the low 70s. He therefore proceeded to the hospital. On arrival he underwent an extensive evaluation. His O2 sat was 7076 on room air with a pulse rate in the 131. Laboratory analysis showed a white blood cell count of 20, sodium 129, potassium 6, chloride 94, BUN 54, creatinine 1.54, and lactic acid 2.2. Mildly elevated liver enzymes with an ALT is 65 and an AST of 79. CTA of the stress test demonstrated possible right lower lobe pulmonary artery embolism, and extensive bilateral interstitial pneumonia. EKG demonstrated sinus tachycardia. He was treated with insulin, glucose, sodium bicarb. Was given a dose of Kayexalate and 1 L of IV fluids. His potassium improved his kidney function was getting better. He did have increasing oxygen requirements and the morning of 08/22. He had low blood sugar overnight, his insulin was decreasing. Patient seen and examined at bedside. Increased SOB and coughing fit. No chest pain. Very SOB when up and moving. No complaints currently. General: Ill appearing, mod distress, appears at stated age Derm: warm, dry Head: atraumatic, normocephalic, symmetric Eyes: EOMI, no lid lag, anicteric sclera Mouth: no lip lesion, mucus membranes moist Cardiovascular: S1S2 reg, no murmur, positive posterior tibial pulse bilateral, Lungs: Coarse breath sounds bilaterally, 2 word conversational dyspnea, + accessory muscle use, Abdominal: soft, nontender to palpation, no guarding, no appreciable organomegaly Ext: no gross muscle atrophy, no edema, no contractures Neuro: CN II-XI grossly intact, no focal neuro deficits Psych: Alert, oriented, appropriate affect COVID 19 pneumonia, in vaccinated individual Acute Hypoxic Respiratory Failure Transaminitis Lactic acidosis - Decadron - pulm recs appreciated - zinc, vit C, vit D - follow inflammatory markers - Not a candidate for Remdesivir due to length from onset of symptoms Right lower lobe pulmonary artery embolsim - heparin gtt transitioned to eliquis - check echo TERESA vs CKD, baseline undetermined Hyponatremia, resolved - suspect due to dehydration and insensible water losses - stop fluids - hold irbasartan - patient with hx of Hypkalemia in the past, has still been on irbasartan DM 2 with hypoglycemia - Sliding scale - long acting insulin - follow BS - A1C pending - Hold Prandin, victoza Chronic: Asthma GERD HTN HLD MECHELLE Leukocytosis, resolved Hyperkalemia, resolved DVT prophylaxis: Eliquis Discussed with: patient, nursing, Anticipated discharge date: undetermined Anticipated discharge place: undetermined A total of 32 minutes was spent on the care of this complex patient more than 50% of the time was spent in counseling and care coordination. Objective - Vital Signs Vital signs: Vital Signs Temp 98.1 F 08/23/21 12:00 Pulse 68 08/23/21 12:00 Resp 15 08/23/21 12:00 BP 137/71 08/23/21 12:00 Pulse Ox 91 L 08/23/21 12:00 Intake & Output 08/22/21 08/23/21 08/23/21 18:59 06:59 18:59 Intake Total 80.301 0166.987 7126 Output Total 2300 500 800 Balance -2219.699 647.237 220 Weight 86.4 kg 85.9 kg Intake: IV 900 1020 Sodium Chloride 0.9% 1, 900 1020 000 ml @ 150 mls/hr IV . Q6H40M ROXI Rx#:[id number] Intake, IV Titration 80.301 247.237 Amount Heparin Sod,Pork in 0.45% 80.301 247.237 NaCl 25,000 unit In 0.45 % NaCl 1 250ml.bag @ 18 UNITS/KG/HR 15.268 mls/hr IV .[id number] ROXI Rx#: [id number] Output: Urine 2300 500 800 Other: Voiding Method Urinal Urinal Urinal - Labs CBC & Chem 7: 08/23/21 03:28 08/23/21 03:28 Labs: Abnormal Lab Results - Last 24 Hours (Table) 08/22/21 08/22/21 08/22/21 Range/Units 06:44 11:39 17:02 WBC (3.8-10.6) k/uL RBC (4.30-5.90) m/uL Hgb (13.0-17.5) gm/dL Hct (39.0-53.0) % APTT (22.0-30.0) sec Sodium (137-145) mmol/L BUN (9-20) mg/dL Glucose (74-99) mg/dL POC Glucose (mg/dL) 163 H (75-99) mg/dL Ferritin 956.0 H (22.0-322.0) ng/mL ALT (4-49) U/L Alkaline Phosphatase (38-126) U/L Total Protein (6.3-8.2) g/dL Albumin (3.5-5.0) g/dL Procalcitonin 0.26 H (0.02-0.09) ng/mL 08/22/21 08/23/21 08/23/21 Range/Units 20:42 03:28 03:28 WBC 13.6 H (3.8-10.6) k/uL RBC 3.84 L (4.30-5.90) m/uL Hgb 11.7 L (13.0-17.5) gm/dL Hct 34.1 L (39.0-53.0) % APTT (22.0-30.0) sec Sodium 134 L (137-145) mmol/L BUN 35 H (9-20) mg/dL Glucose 57 L (74-99) mg/dL POC Glucose (mg/dL) 223 H (75-99) mg/dL Ferritin (22.0-322.0) ng/mL ALT 67 H (4-49) U/L Alkaline Phosphatase 182 H (38-126) U/L Total Protein 5.8 L (6.3-8.2) g/dL Albumin 2.5 L (3.5-5.0) g/dL Procalcitonin (0.02-0.09) ng/mL 08/23/21 08/23/21 08/23/21 Range/Units 03:28 04:33 06:43 WBC (3.8-10.6) k/uL RBC (4.30-5.90) m/uL Hgb (13.0-17.5) gm/dL Hct (39.0-53.0) % APTT 32.0 H (22.0-30.0) sec Sodium (137-145) mmol/L BUN (9-20) mg/dL Glucose (74-99) mg/dL POC Glucose (mg/dL) 63 L 167 H (75-99) mg/dL Ferritin (22.0-322.0) ng/mL ALT (4-49) U/L Alkaline Phosphatase (38-126) U/L Total Protein (6.3-8.2) g/dL Albumin (3.5-5.0) g/dL Procalcitonin (0.02-0.09) ng/mL 08/23/21 Range/Units 10:16 WBC (3.8-10.6) k/uL RBC (4.30-5.90) m/uL Hgb (13.0-17.5) gm/dL Hct (39.0-53.0) % APTT 75.5 H (22.0-30.0) sec Sodium (137-145) mmol/L BUN (9-20) mg/dL Glucose (74-99) mg/dL POC Glucose (mg/dL) (75-99) mg/dL Ferritin (22.0-322.0) ng/mL ALT (4-49) U/L Alkaline Phosphatase (38-126) U/L Total Protein (6.3-8.2) g/dL Albumin (3.5-5.0) g/dL Procalcitonin (0.02-0.09) ng/mL Microbiology - Last 24 Hours (Table) 08/22/21 23:39 Sputum Culture - Preliminary Sputum 08/21/21 12:35 Blood Culture - Preliminary Blood No Growth after 24 hours
[2021-08-23 14:13] LABS: Glucose,Whole Blood 169 mg/dL (75-99)
[2021-08-23 16:32] LABS: Glucose,Whole Blood 231 mg/dL (75-99)
--- NOTE | 2021-08-23 17:30 | ECHOF ---
Referral Reason:right heart strain MEASUREMENTS -------- HEIGHT: 152.4 cm WEIGHT: 85.7 kg BP: RVIDd: 3.4 cm (< 3.3) IVSd: 1.3 cm (0.6 - 1.1) LVIDd: 5.4 cm (3.9 - 5.3) LVPWd: 2.1 cm (0.6 - 1.1) IVSs: 2.0 cm LVIDs: 4.4 cm LVPWs: 2.0 cm Ao Diam: 3.8 cm (2.0 - 3.7) MV E Daron: 0.51 m/s MV DecT: 215 ms MV A Daron: 0.93 m/s MV E/A Ratio: 0.55 FINDINGS -------- Sinus rhythm. Pt is COVID Positive: cough thru test TDS. The left ventricular size is normal. Left ventricular wall thickness is normal. Overall left vent ricular systolic function is normal with, an EF between 55 - 60 %. The right ventricle is normal in size. The aortic valve was not well visualized. Possible moderate Stenosis. Echo free space represents a pericardial fat pad. CONCLUSIONS -------- 1. Pt is COVID Positive: cough thru test TDS. 2. The left ventricular size is normal. 3. Left ventricular wall thickness is normal. 4. Overall left ventricular systolic function is normal with, an EF between 55 - 60 %. 5. The right ventricle is normal in size. 6. The aortic valve was not well visualized. 7. Echo free space represents a pericardial fat pad. [employer] ADVISOR: Meghan Tuttle RDCS
[2021-08-23 20:40] LABS: Glucose,Whole Blood 332 mg/dL (75-99)
[2021-08-23] MEDS: ALPRAZolam 0.25 MG TAB PO PRN (20:59)
[2021-08-23] MEDS ORDERED: INSULIN DETEMIR (LEVEMIR) 100 UNIT/ML SYR SQ SCH (21:00)
[2021-08-24] MEDS: ALBUTEROL HFA INHALER INHALATION SCH ×5 (03:13→20:32)
[2021-08-24 06:18] LABS: Glucose,Whole Blood 94 mg/dL (75-99)
[2021-08-24] MEDS: BENZONATATE 100 MG CAP PO PRN (06:22)
[2021-08-24] MEDS: INSULIN ASPART (NovoLOG) 100 UNIT/ML VIAL SQ SCH ×6 (08:53→21:01)
[2021-08-24] MEDS: ZINC SULFATE 220 MG CAP PO SCH (08:58)
[2021-08-24] MEDS: ASCORBIC ACID 500 MG TAB PO SCH (08:58)
[2021-08-24] MEDS: APIXABAN 5 MG TAB PO SCH ×2 (08:58→21:01)
[2021-08-24] MEDS: CHOLECALCIFEROL 25 MCG (1000 IU) TABLET PO SCH (08:58)
[2021-08-24] MEDS: ATORVASTATIN 10 MG TAB PO SCH (08:58)
[2021-08-24] MEDS: PANTOPRAZOLE 40 MG TABLET PO SCH (08:59)
[2021-08-24] MEDS: DEXAMETHASONE SOD PHOSPHATE 10 MG/ML 1 ML VIAL IV SCH (08:59)
[2021-08-24] MEDS: FAMOTIDINE 20 MG TAB PO SCH (08:59)
[2021-08-24] MEDS: MULTIVITAMINS, THERA 1 EACH TAB PO SCH (08:59)
[2021-08-24 09:20] LABS: HCT 33.3 % (39.0-53.0); HGB 11.7 gm/dL (13.0-17.5); MCH 30.5 pg (25.0-35.0); MCHC 35.1 g/dL (31.0-37.0); MCV 87.1 fL (80.0-100.0); Mean Platelet Volume 7.4; Platelet Count 343 k/uL (150-450); RBC 3.83 m/uL (4.30-5.90); RDW 12.9 % (11.5-15.5); WBC 12.9 k/uL (3.8-10.6)
[2021-08-24 09:43] LABS: Albumin 2.6 g/dL (3.5-5.0); Calcium 8.6 mg/dL (8.4-10.2); Potassium 5.4 mmol/L (3.5-5.1); Total Bilirubin 0.6 mg/dL (0.2-1.3); Total Protein 6.1 g/dL (6.3-8.2)
[2021-08-24] MEDS: SYMBICORT 160-4.5 MCG INHALER INHALATION SCH ×2 (09:48→20:32)
[2021-08-24] MEDS ORDERED: SODIUM CHLORIDE 0.45% 1,000 ML IV SCH (10:15)
[2021-08-24 11:38] LABS: Glucose,Whole Blood 125 mg/dL (75-99)
--- NOTE | 2021-08-24 11:41 | P.PN ---
Subjective Progress Note Date: 08/24/21 70-year-old male, who is seen in the emergency department, on August 21. He came in with complaints of shortness of breath. He's been sick for at least 2 weeks maybe longer. He initially developed cold symptoms. He apparently tested positive for coronavirus 9 days ago. He had a cough or chest congestion, and minimal yellow phlegm production. He apparently is been monitoring his oxygen at home, and over the last 3 days, his saturations dropped into the 70s. His daughter who is a nurse, told him to get into the emergency room to be evaluated. In addition, the patient has chest congestion, fever, and significant fatigue and weakness. He complains of diffuse muscle aches. He denied any chest pain or chest discomfort. He was given Decadron is been taking over the last 7 days. He also has been using breathing treatments at home with both albuterol sulfate and ipratropium bromide. The patient was evaluated in the emergency room, was admitted with a diagnosis of coronavirus associated pneumonia, and a CT angiogram showed a pulmonary embolism in the right lower lobe. His past medical history is positive for diabetes and hypertension. He used to smoke but quit more than 30 years ago. He has been vaccinated back in February, with the Zik[employer] vaccine, 2. Currently, he's on 4 L nasal cannula, IV heparin, and a saline IV at [facility]. White count was 20.6, hemoglobin 15, hematocrit 43.4, and platelet count 473,000. D-dimer was 0.82. Sodium 129, potassium 6, chlorides 94, CO2 22, anion gap 13, BUN 54, and creatinine 1.51. Lactic acid was 2.2 and the repeat was also 2.2. N-terminal proBNP was normal. And troponin was negative. Chest x-ray shows diffuse bilateral infiltrates. CT angiogram was positive for diffuse extensive pulmonary infiltrates, and a possible right lower lobe pulmonary embolism. The patient is seen today 08/22/2021 in follow-up in the intensive care unit as a regular medical floor overflow. He is currently sitting up in bed. Awake and alert in no acute distress. He is maintaining O2 saturations in the 90s on 10 L high flow nasal cannula. He does desaturate into the low 80s with any significant activity. He is fairly comfortable at rest. He remains on a heparin drip for possible right lower lobe pulmonary emboli. He has 0.9 normal saline at 70 mL per hour. Follow-up chest x-ray reveals improving bilateral multifocal airspace and interstitial opacities. White count 9.5. Hemoglobin 11.6. Lymphs at 0.5. D-dimer 0.43. Sodium 134. Potassium 5.1. Creatinine 1.16. AST 48. ALT 64. Alk phos 168. LDH 72. C-reactive protein 15.9. He remains on bronchodilators, vitamin supplements, Decadron. 08/23/2021, the patient is being seen for a follow-up in intensive care unit. For now, the patient is on oxygen at 9 L high flow. Current pulse ox is ranging between 89-91%. As mentioned earlier, this patient has COVID 19 related pne umonia and the patient also being anticoagulated for a possible right lower lobe pulmonary embolism. IV fluids are still running at 70 mL an hour of normal saline. Earlier this morning at around 4:00, the patient had a bout of hypoglycemia and the sugar was 53. He was given D50 and subsequent blood sugars improved. Note that the patient is diabetic. He is breathing is labored and the patient gets short of breath with activity and while talking longer sentences. On his blood work today, is electrolytes are all normal, his LFTs are essentially stable and normal, inflammatory markers from yesterday was noted. LDH was 782 with a CRP of 15.9. The patient also remains on Decadron 6 mg IV every 24 hours. The patient is on anticoagulation with IV heparin. He is currently on Levemir insulin 15 units at bedtime and addition to a sliding scale coverage. IV fluids are running at 150 mL an hour. Noted the patient d-dimer has been essentially low. On 08/24/2021, the patient is slightly improved in terms of his oxygenation. Yesterday he was on 10 L and currently is down to 6 L about 2 by nasal cannula. His LDH level is also down to 636 and a CRP level is at extreme. Otherwise is l ess of the mother work essentially within normal limits. White cell count of 12.9 with a hemoglobin of 11.7 and platelet count of 343. Creatinine is stable at 1.09 and the potassium level is at 5.4. He has no specific complaints. Resting comfortably on a recliner chair. The patient was also given a dose of Lasix yesterday which improved his urination urine output. For now, the patient remains on Decadron 6 mg IV every 24 hours. The patient is on half-normal saline at rate of 50 mL an hour. The patient is also on Levemir insulin 8 units daily at bedtime along with NovoLog 2 units with meals and a sliding scale coverage. Anticoagulation is with Eliquis. Objective - Vital Signs Vital signs: Vital Signs Temp 97.5 F L 08/24/21 08:00 Pulse 78 08/24/21 08:00 Resp 22 08/24/21 08:00 BP 143/71 08/24/21 08:00 Pulse Ox 100 08/24/21 09:50 Intake & Output 08/23/21 08/24/21 08/24/21 18:59 06:59 18:59 Intake Total 1260 480 Output Total 1000 1000 275 Balance 260 -1000 205 Weight 80 kg Intake: IV 1020 Sodium Chloride 0.9% 1, 1020 000 ml @ 150 mls/hr IV . Q6H40M [facility] Rx#:[id number] Oral 240 480 Output: Urine 1000 1000 275 Other: Voiding Method External Catheter External Catheter - Exam GENERAL EXAM: Alert, oriented, very pleasant 70-year-old gentleman, on 6 L high flow nasal cannula, comfortable in no apparent distress. HEAD: Normocephalic. EYES: Normal reaction of pupils, equal size. NOSE: Clear with pink turbinates. THROAT: No erythema or exudates. NECK: No masses, no JVD. CHEST: No chest wall deformity. LUNGS: Equal air entry with coarse crackles in the bilateral bases. CVS: S1 and S2 normal with no audible murmur, regular rhythm. ABDOMEN: No hepatosplenomegaly, normal bowel sounds, no guarding or rigidity. SPINE: No scoliosis or deformity SKIN: No rashes CENTRAL NERVOUS SYSTEM: No focal deficits, tone is normal in all 4 extremities. EXTREMITIES: There is no peripheral edema. No clubbing, no cyanosis. Peripheral pulses are intact. - Labs CBC & Chem 7: 08/24/21 08:55 08/24/21 08:55 Labs: Abnormal Lab Results - Last 24 Hours (Table) 08/23/21 08/23/21 08/23/21 Range/Units 03:28 14:10 16:30 WBC (3.8-10.6) k/uL RBC (4.30-5.90) m/uL Hgb (13.0-17.5) gm/dL Hct (39.0-53.0) % D-Dimer (<0.60) mg/L FEU Sodium (137-145) mmol/L Potassium (3.5-5.1) mmol/L BUN (9-20) mg/dL Glucose (74-99) mg/dL POC Glucose (mg/dL) 169 H 231 H (75-99) mg/dL Hemoglobin A1c 8.6 H (4.0-6.0) % AST (17-59) U/L ALT (4-49) U/L Alkaline Phosphatase (38-126) U/L Lactate Dehydrogenase (313-618) U/L C-Reactive Protein (<1.0) mg/dL Total Protein (6.3-8.2) g/dL Albumin (3.5-5.0) g/dL 08/23/21 08/24/21 08/24/21 Range/Units 20:28 08:55 08:55 WBC 12.9 H (3.8-10.6) k/uL RBC 3.83 L (4.30-5.90) m/uL Hgb 11.7 L (13.0-17.5) gm/dL Hct 33.3 L (39.0-53.0) % D-Dimer 1.00 H (<0.60) mg/L FEU Sodium (137-145) mmol/L Potassium (3.5-5.1) mmol/L BUN (9-20) mg/dL Glucose (74-99) mg/dL POC Glucose (mg/dL) 332 H (75-99) mg/dL Hemoglobin A1c (4.0-6.0) % AST (17-59) U/L ALT (4-49) U/L Alkaline Phosphatase (38-126) U/L Lactate Dehydrogenase (313-618) U/L C-Reactive Protein (<1.0) mg/dL Total Protein (6.3-8.2) g/dL Albumin (3.5-5.0) g/dL 08/24/21 Range/Units 08:55 WBC (3.8-10.6) k/uL RBC (4.30-5.90) m/uL Hgb (13.0-17.5) gm/dL Hct (39.0-53.0) % D-Dimer (<0.60) mg/L FEU Sodium 133 L (137-145) mmol/L Potassium 5.4 H (3.5-5.1) mmol/L BUN 26 H (9-20) mg/dL Glucose 105 H (74-99) mg/dL POC Glucose (mg/dL) (75-99) mg/dL Hemoglobin A1c (4.0-6.0) % AST 63 H (17-59) U/L ALT 91 H (4-49) U/L Alkaline Phosphatase 197 H (38-126) U/L Lactate Dehydrogenase 636 H (313-618) U/L C-Reactive Protein 16.0 H (<1.0) mg/dL Total Protein 6.1 L (6.3-8.2) g/dL Albumin 2.6 L (3.5-5.0) g/dL Microbiology - Last 24 Hours (Table) 08/22/21 23:39 Gram Stain - Preliminary Sputum Sputum Culture - Preliminary 08/21/21 12:35 Blood Culture - Preliminary Blood No Growth after 48 hours Assessment and Plan Plan: 1 Acute hypoxemic respiratory failure secondary to COVID-19 pneumonia, complicated by right lower lobe pulmonary embolism. Vaccinated with Pfizer 2 in February 2021.For now, the patient remains on Decadron 6 mg IV every 24 hours. Inflammatory markers are mildly elevated with a modest elevation of the LDH CRP of 15.9 and a low pro-calcitonin level of 0.26. Also had a suspected pulmonary embolism. Currently he is on Eliquis. Oxidation is improving and currently is down to 6 L of oxygen by nasal cannula. markers are also improving. 2 Acute right lower lobe pulmonary emboli secondary to COVID-19 infection, Currently on oral Eliquis 3 Diabetes mellitus, currently on Levemir insulin 8 units daily at bedtime for blood sugar control, no further bouts of hypoglycemia 4 Hypertension 5 Hyperlipidemia 6 Osteoarthritis 7 History of obstructive sleep apnea, not utilizing CPAP 8 Gastroesophageal reflux disease 9 History of mild intermittent chronic bronchial asthma, currently on Symbicort as maintenance Plan: Keep the patient on 6 L of oxygen by nasal cannula and wean it down gradually to maintain a saturation above 90%. Chest x-ray was noted and essentially there is no major interval change. The patient but the pulmonary infiltrates consistent with COVID 19 related pneumonia. Continue Eliquis 10 mg by mouth twice a day for one week and following that the use the dose down to 5 mg twice a day and meanwhile I think it's reasonable to obtain Dopplers of the lower extremities to rule out any DVTs. Echo is normal Reviews the Levemir insulin dose down to 8 units and continue covering with a scale coverage. Chest x-ray and labs reviewed Continue the current treatment plan Titrate the FiO2 as tolerated IV fluids down to 40 mL an hour We will continue to follow
--- NOTE | 2021-08-24 11:45 | P.PN ---
Subjective Progress Note Date: 08/24/21 Principal diagnosis: shortness of breath Patient is a 70-year-old male with a history of diabetes mellitus type 2, GERD, hypertension, dyslipidemia, and multiple other comorbid conditions who presented to the ER with complaints of worsening oxygenation. He has been diagnosed with cold. Approximately one week prior to admission. He had undergone 7 days of Decadron as an outpatient and have been monitoring his pulse ox and he was noted to be in the low 70s. He therefore proceeded to the hospital. On arrival he underwent an extensive evaluation. His O2 sat was 7076 on room air with a pulse rate in the 131. Laboratory analysis showed a white blood cell count of 20, sodium 129, potassium 6, chloride 94, BUN 54, creatinine 1.54, and lactic acid 2.2. Mildly elevated liver enzymes with an ALT is 65 and an AST of 79. CTA of the stress test demonstrated possible right lower lobe pulmonary artery embolism, and extensive bilateral interstitial pneumonia. EKG demonstrated sinus tachycardia. He was treated with insulin, glucose, sodium bicarb. Was given a dose of Kayexalate and 1 L of IV fluids. His potassium improved his kidney function was getting better. He did have increasing oxygen requirements and the morning of 08/22. He had low blood sugar overnight, his insulin was decreasing. His O2 was decreased to 6L on the morning of 08/24. Patient seen and examined at bedside. Feeling better today, less cough, less shortness of breath. Still not sleeping well at night.some decreased oral intake. General: Ill appearing, no distress, appears at stated age Derm: warm, dry Head: atraumatic, normocephalic, symmetric Eyes: EOMI, no lid lag, anicteric sclera Mouth: no lip lesion, mucus membranes moist Cardiovascular: S1S2 reg, no murmur, positive posterior tibial pulse bilateral, Lungs: Coarse breath sounds bilaterally, 5 word conversational dyspnea, no accessory muscle use, Abdominal: soft, nontender to palpation, no guarding, no appreciable organomegaly Ext: no gross muscle atrophy, no edema, no contractures Neuro: CN II-XI grossly intact, no focal neuro deficits Psych: Alert, oriented, appropriate affect COVID 19 pneumonia, in vaccinated individual Acute Hypoxic Respiratory Failure Transaminitis Lactic acidosis - Decadron - pulm recs appreciated - zinc, vit C, vit D - follow inflammatory markers Right lower lobe pulmonary artery embolsim - Eliquis - echo with preserved EF TERESA vs CKD, baseline undetermined Hyponatremia Hyperkalemia - suspect due to dehydration and insensible water losses - resume LR - hold irbasartan - patient with hx of Hypkalemia in the past, has still been on irbasartan DM 2 with hypoglycemia - Sliding scale - long acting insulin, add fixed dose insulin - follow BS - A1C 8.6 - Hold Prandin, victoza Chronic: Asthma GERD HTN HLD MECHELLE Leukocytosis - due to steroids - follow CBC Hyperkalemia DVT prophylaxis: Eliquis Discussed with: patient, nursing, Anticipated discharge date: 3-[address]: home A total of 32 minutes was spent on the care of this complex patient more than 50% of the time was spent in counseling and care coordination. Objective - Vital Signs Vital signs: Vital Signs Temp 97.5 F L 08/24/21 08:00 Pulse 78 08/24/21 08:00 Resp 22 08/24/21 08:00 BP 143/71 08/24/21 08:00 Pulse Ox 100 08/24/21 09:50 Intake & Output 08/23/21 08/24/21 08/24/21 18:59 06:59 18:59 Intake Total 1260 480 Output Total 1000 1000 275 Balance 260 -1000 205 Weight 80 kg Intake: IV 1020 Sodium Chloride 0.9% 1, 1020 000 ml @ 150 mls/hr IV . Q6H40M [facility] Rx#:[id number] Oral 240 480 Output: Urine 1000 1000 275 Other: Voiding Method External Catheter External Catheter - Labs CBC & Chem 7: 08/24/21 08:55 08/24/21 08:55 Labs: Abnormal Lab Results - Last 24 Hours (Table) 08/23/21 08/23/21 08/23/21 Range/Units 03:28 14:10 16:30 WBC (3.8-10.6) k/uL RBC (4.30-5.90) m/uL Hgb (13.0-17.5) gm/dL Hct (39.0-53.0) % D-Dimer (<0.60) mg/L FEU Sodium (137-145) mmol/L Potassium (3.5-5.1) mmol/L BUN (9-20) mg/dL Glucose (74-99) mg/dL POC Glucose (mg/dL) 169 H 231 H (75-99) mg/dL Hemoglobin A1c 8.6 H (4.0-6.0) % AST (17-59) U/L ALT (4-49) U/L Alkaline Phosphatase (38-126) U/L Lactate Dehydrogenase (313-618) U/L C-Reactive Protein (<1.0) mg/dL Total Protein (6.3-8.2) g/dL Albumin (3.5-5.0) g/dL 08/23/21 08/24/21 08/24/21 Range/Units 20:28 08:55 08:55 WBC 12.9 H (3.8-10.6) k/uL RBC 3.83 L (4.30-5.90) m/uL Hgb 11.7 L (13.0-17.5) gm/dL Hct 33.3 L (39.0-53.0) % D-Dimer 1.00 H (<0.60) mg/L FEU Sodium (137-145) mmol/L Potassium (3.5-5.1) mmol/L BUN (9-20) mg/dL Glucose (74-99) mg/dL POC Glucose (mg/dL) 332 H (75-99) mg/dL Hemoglobin A1c (4.0-6.0) % AST (17-59) U/L ALT (4-49) U/L Alkaline Phosphatase (38-126) U/L Lactate Dehydrogenase (313-618) U/L C-Reactive Protein (<1.0) mg/dL Total Protein (6.3-8.2) g/dL Albumin (3.5-5.0) g/dL 08/24/21 Range/Units 08:55 WBC (3.8-10.6) k/uL RBC (4.30-5.90) m/uL Hgb (13.0-17.5) gm/dL Hct (39.0-53.0) % D-Dimer (<0.60) mg/L FEU Sodium 133 L (137-145) mmol/L Potassium 5.4 H (3.5-5.1) mmol/L BUN 26 H (9-20) mg/dL Glucose 105 H (74-99) mg/dL POC Glucose (mg/dL) (75-99) mg/dL Hemoglobin A1c (4.0-6.0) % AST 63 H (17-59) U/L ALT 91 H (4-49) U/L Alkaline Phosphatase 197 H (38-126) U/L Lactate Dehydrogenase 636 H (313-618) U/L C-Reactive Protein 16.0 H (<1.0) mg/dL Total Protein 6.1 L (6.3-8.2) g/dL Albumin 2.6 L (3.5-5.0) g/dL Microbiology - Last 24 Hours (Table) 08/22/21 23:39 Gram Stain - Preliminary Sputum Sputum Culture - Preliminary 08/21/21 12:35 Blood Culture - Preliminary Blood No Growth after 48 hours
[2021-08-24] MEDS: LACTATED RINGERS 1,000 ML IV SCH (12:43)
[2021-08-24] MEDS: FLUTICASONE 50MCG/SPRAY NASAL 16GM EA NOSTRIL SCH (12:53)
[2021-08-24 16:39] LABS: Glucose,Whole Blood 249 mg/dL (75-99)
[2021-08-24 20:47] LABS: Glucose,Whole Blood 192 mg/dL (75-99)
[2021-08-24] MEDS: MELATONIN 5 MG TABLET PO SCH (21:01)
[2021-08-24] MEDS: ALPRAZolam 0.25 MG TAB PO PRN (21:01)
[2021-08-24] MEDS: diphenhydrAMINE ELIXIR 25 MG/10 ML CUP PO SCH (21:02)
[2021-08-24] MEDS: INSULIN DETEMIR (LEVEMIR) 100 UNIT/ML SYR SQ SCH (21:02)
[2021-08-25] MEDS: ALBUTEROL HFA INHALER INHALATION SCH ×7 (00:31→22:24)
[2021-08-25 06:16] LABS: Glucose,Whole Blood 148 mg/dL (75-99)
[2021-08-25] MEDS: INSULIN ASPART (NovoLOG) 100 UNIT/ML VIAL SQ SCH ×6 (06:29→20:46)
[2021-08-25] MEDS: SYMBICORT 160-4.5 MCG INHALER INHALATION SCH ×2 (07:28→20:05)
[2021-08-25] MEDS: FLUTICASONE 50MCG/SPRAY NASAL 16GM EA NOSTRIL SCH (09:28)
[2021-08-25] MEDS: guaiFENesin-Coden 100-10MG/5ML 10 ML CUP PO PRN ×2 (09:28→20:56)
[2021-08-25] MEDS: DEXAMETHASONE SOD PHOSPHATE 10 MG/ML 1 ML VIAL IV SCH (09:29)
[2021-08-25] MEDS: MULTIVITAMINS, THERA 1 EACH TAB PO SCH (09:29)
[2021-08-25] MEDS: FAMOTIDINE 20 MG TAB PO SCH (09:29)
[2021-08-25] MEDS: ASCORBIC ACID 500 MG TAB PO SCH (09:29)
[2021-08-25] MEDS: PANTOPRAZOLE 40 MG TABLET PO SCH (09:29)
[2021-08-25] MEDS: CHOLECALCIFEROL 25 MCG (1000 IU) TABLET PO SCH (09:29)
[2021-08-25] MEDS: ZINC SULFATE 220 MG CAP PO SCH (09:29)
[2021-08-25] MEDS: APIXABAN 5 MG TAB PO SCH ×2 (09:29→20:45)
[2021-08-25] MEDS: ATORVASTATIN 10 MG TAB PO SCH (09:29)
[2021-08-25 10:13] LABS: HCT 36.9 % (39.0-53.0); HGB 12.2 gm/dL (13.0-17.5); MCH 29.5 pg (25.0-35.0); MCV 89.2 fL (80.0-100.0); Mean Platelet Volume 7.7; Platelet Count 384 k/uL (150-450); RBC 4.13 m/uL (4.30-5.90); RDW 12.8 % (11.5-15.5); WBC 10.6 k/uL (3.8-10.6)
[2021-08-25 10:43] LABS: Albumin 2.7 g/dL (3.5-5.0); Calcium 8.8 mg/dL (8.4-10.2); Total Bilirubin 0.4 mg/dL (0.2-1.3)
--- NOTE | 2021-08-25 12:00 | P.PN ---
Subjective Progress Note Date: 08/25/21 70-year-old male, who is seen in the emergency department, on August 21. He came in with complaints of shortness of breath. He's been sick for at least 2 weeks maybe longer. He initially developed cold symptoms. He apparently tested positive for coronavirus 9 days ago. He had a cough or chest congestion, and minimal yellow phlegm production. He apparently is been monitoring his oxygen at home, and over the last 3 days, his saturations dropped into the 70s. His daughter who is a nurse, told him to get into the emergency room to be evaluated. In addition, the patient has chest congestion, fever, and significant fatigue and weakness. He complains of diffuse muscle aches. He denied any chest pain or chest discomfort. He was given Decadron is been taking over the last 7 days. He also has been using breathing treatments at home with both albuterol sulfate and ipratropium bromide. The patient was evaluated in the emergency room, was admitted with a diagnosis of coronavirus associated pneumonia, and a CT angiogram showed a pulmonary embolism in the right lower lobe. His past medical history is positive for diabetes and hypertension. He used to smoke but quit more than 30 years ago. He has been vaccinated back in February, with the [employer] vaccine, 2. Currently, he's on 4 L nasal cannula, IV heparin, and a saline IV at [facility]. White count was 20.6, hemoglobin 15, hematocrit 43.4, and platelet count 473,000. D-dimer was 0.82. Sodium 129, potassium 6, chlorides 94, CO2 22, anion gap 13, BUN 54, and creatinine 1.51. Lactic acid was 2.2 and the repeat was also 2.2. N-terminal proBNP was normal. And troponin was negative. Chest x-ray shows diffuse bilateral infiltrates. CT angiogram was positive for diffuse extensive pulmonary infiltrates, and a possible right lower lobe pulmonary embolism. The patient is seen today 08/22/2021 in follow-up in the intensive care unit as a regular medical floor overflow. He is currently sitting up in bed. Awake and alert in no acute distress. He is maintaining O2 saturations in the 90s on 10 L high flow nasal cannula. He does desaturate into the low 80s with any significant activity. He is fairly comfortable at rest. He remains on a heparin drip for possible right lower lobe pulmonary emboli. He has 0.9 normal saline at 70 mL per hour. Follow-up chest x-ray reveals improving bilateral multifocal airspace and interstitial opacities. White count 9.5. Hemoglobin 11.6. Lymphs at 0.5. D-dimer 0.43. Sodium 134. Potassium 5.1. Creatinine 1.16. AST 48. ALT 64. Alk phos 168. LDH 72. C-reactive protein 15.9. He remains on bronchodilators, vitamin supplements, Decadron. 08/23/2021, the patient is being seen for a follow-up in intensive care unit. For now, the patient is on oxygen at 9 L high flow. Current pulse ox is ranging between 89-91%. As mentioned earlier, this patient has COVID 19 related pneum onia and the patient also being anticoagulated for a possible right lower lobe pulmonary embolism. IV fluids are still running at 70 mL an hour of normal saline. Earlier this morning at around 4:00, the patient had a bout of hypoglycemia and the sugar was 53. He was given D50 and subsequent blood sugars improved. Note that the patient is diabetic. He is breathing is labored and the patient gets short of breath with activity and while talking longer sentences. On his blood work today, is electrolytes are all normal, his LFTs are essentially stable and normal, inflammatory markers from yesterday was noted. LDH was 782 with a CRP of 15.9. The patient also remains on Decadron 6 mg IV every 24 hours. The patient is on anticoagulation with IV heparin. He is currently on Levemir insulin 15 units at bedtime and addition to a sliding scale coverage. IV fluids are running at 150 mL an hour. Noted the patient d-dimer has been essentially low. On 08/24/2021, the patient is slightly improved in terms of his oxygenation. Yesterday he was on 10 L and currently is down to 6 L about 2 by nasal cannula. His LDH level is also down to 636 and a CRP level is at extreme. Otherwise is less of the mother work essentially within normal limits. White cell count of 12.9 with a hemoglobin of 11.7 and platelet count of 343. Creatinine is stable at 1.09 and the potassium level is at 5.4. He has no specific complaints. Resting comfortably on a recliner chair. The patient was also given a dose of Lasix yesterday which improved his urination urine output. For now, the patient remains on Decadron 6 mg IV every 24 hours. The patient is on half-normal saline at rate of 50 mL an hour. The patient is also on Levemir insulin 8 units daily at bedtime along with NovoLog 2 units with meals and a sliding scale coverage. Anticoagulation is with Eliquis. On 08/25/2021 patient seen in follow-up on selective care unit, he is currently getting out of the shower, breathing very comfortably, he is not wearing any oxygen, we will obtain room air pulse ox. He is awake and alert, oriented 3, he is tolerating in relation with a walker and supervised assist. Vital signs have been stable, he said no acute events overnight. No fever or chills, blood pressure has been stable, patient continues on Eliquis for acute pulmonary emboli diagnosed during this admission. Currently on Decadron 6 mg daily, she is on inhaled bronchodilators in the form of Symbicort and Ventolin, he is on COVID-19 vitamins. Has had no acute events overnight, he is tolerating oral intake. Objective - Vital Signs Vital signs: Vital Signs Temp 97.8 F 08/25/21 08:00 Pulse 93 08/25/21 08:00 Resp 18 08/25/21 08:00 BP 134/71 08/25/21 08:00 Pulse Ox 95 08/25/21 08:00 Intake & Output 08/24/21 08/25/21 08/25/21 18:59 06:59 18:59 Intake Total 1200 118 Output Total 1125 1800 Balance 75 -1800 118 Intake: Oral 1200 118 Output: Urine 1125 1800 Other: Voiding Method External Catheter - Exam GENERAL EXAM: Alert, very pleasant 70 yo male on room air with pulse ox 99% comfortable in no apparent distress. HEAD: Normocephalic/atraumatic. EYES: Normal reaction of pupils, equal size. Conjunctiva pink, sclera white. NOSE: Clear with pink turbinates. THROAT: No erythema or exudates. NECK: No masses, no JVD, no thyroid enlargement, no adenopathy. CHEST: No chest wall deformity. Symmetrical expansion. LUNGS: Equal air entry with basilar rales CVS: Regular rate and rhythm, normal S1 and S2, no gallops, no murmurs, no rubs ABDOMEN: Soft, nontender. No hepatosplenomegaly, normal bowel sounds, no guarding or rigidity. EXTREMITIES: No clubbing, no edema, no cyanosis, 2+ pulses and upper and lower extremities. MUSCULOSKELETAL: Muscle strength and tone normal. SPINE: No scoliosis or deformity SKIN: No rashes CENTRAL NERVOUS SYSTEM: Alert and oriented -3. No focal deficits, tone is normal in all 4 extremities. PSYCHIATRIC: Alert and oriented -3. Appropriate affect. Intact judgment and insight. - Labs CBC & Chem 7: 08/25/21 09:13 08/25/21 09:13 Labs: Abnormal Lab Results - Last 24 Hours (Table) 08/24/21 08/24/21 08/25/21 Range/Units 16:37 20:27 06:11 RBC (4.30-5.90) m/uL Hgb (13.0-17.5) gm/dL Hct (39.0-53.0) % D-Dimer (<0.60) mg/L FEU Sodium (137-145) mmol/L BUN (9-20) mg/dL Creatinine (0.66-1.25) mg/dL Glucose (74-99) mg/dL POC Glucose (mg/dL) 249 H 192 H 148 H (75-99) mg/dL ALT (4-49) U/L Alkaline Phosphatase (38-126) U/L C-Reactive Protein (<1.0) mg/dL Total Protein (6.3-8.2) g/dL Albumin (3.5-5.0) g/dL 08/25/21 08/25/21 08/25/21 Range/Units 09:13 09:13 09:13 RBC 4.13 L (4.30-5.90) m/uL Hgb 12.2 L (13.0-17.5) gm/dL Hct 36.9 L (39.0-53.0) % D-Dimer 0.98 H (<0.60) mg/L FEU Sodium 132 L (137-145) mmol/L BUN 35 H (9-20) mg/dL Creatinine 1.28 H (0.66-1.25) mg/dL Glucose 252 H (74-99) mg/dL POC Glucose (mg/dL) (75-99) mg/dL ALT 80 H (4-49) U/L Alkaline Phosphatase 201 H (38-126) U/L C-Reactive Protein 6.0 H (<1.0) mg/dL Total Protein 6.0 L (6.3-8.2) g/dL Albumin 2.7 L (3.5-5.0) g/dL Microbiology - Last 24 Hours (Table) 08/22/21 23:39 Gram Stain - Final Sputum Sputum Culture - Final 08/21/21 12:35 Blood Culture - Preliminary Blood No Growth after 72 hours Assessment and Plan Plan: #1. Acute hypoxemic respiratory failure secondary to COVID-19 pneumonia, complicated by right lower lobe pulmonary embolism. Vaccinated with Pfizer 2 in February 2021.For now, the patient remains on Decadron 6 mg IV every 24 hours. Inflammatory markers are mildly elevated with a modest elevation of the LDH CRP of 15.9 and a low pro-calcitonin level of 0.26. Also had a suspected pulmonary embolism. Currently he is on Eliquis. Oxidation is improving and currently is down to 6 L of oxygen by nasal cannula. markers are also improving. #2. Acute right lower lobe pulmonary emboli secondary to COVID-19 infection, Currently on oral Eliquis #3. Diabetes mellitus, currently on Levemir insulin 8 units daily at bedtime for blood sugar control, no further bouts of hypoglycemia #4.Hypertension #5. Hyperlipidemia #6. Osteoarthritis #7. History of obstructive sleep apnea, not utilizing CPAP #8. Gastroesophageal reflux disease #9. History of mild intermittent chronic bronchial asthma, currently on Symbicort as maintenance Plan: Switch IV decadron to oral Continue Eliquis Continue Covid 19 vitamins Patient is on room air, tolerating ambulation with walker maintaining o2 sats above 95% even after ambulation Stable for discharge from pulmonary perspective Patient states he cannot return home because of restraining order filed by his against the patient He may need subacute rehab that accepts recoving COVID 19 patients He is generally weak, ambulates with walker Outpatient follow up in the office with Dr. Holguin in 2 weeks Time with Patient: Less than 30
--- NOTE | 2021-08-25 12:12 | P.PN ---
Subjective Progress Note Date: 08/25/21 70-year-old male, who is seen in the emergency department, on August 21. He came in with complaints of shortness of breath. He's been sick for at least 2 weeks maybe longer. He initially developed cold symptoms. He apparently tested positive for coronavirus 9 days ago. He had a cough or chest congestion, and minimal yellow phlegm production. He apparently is been monitoring his oxygen at home, and over the last 3 days, his saturations dropped into the 70s. His daughter who is a nurse, told him to get into the emergency room to be evaluated. In addition, the patient has chest congestion, fever, and significant fatigue and weakness. He complains of diffuse muscle aches. He denied any chest pain or chest discomfort. He was given Decadron is been taking over the last 7 days. He also has been using breathing treatments at home with both albuterol sulfate and ipratropium bromide. The patient was evaluated in the emergency room, was admitted with a diagnosis of coronavirus associated pneumonia, and a CT angiogram showed a pulmonary embolism in the right lower lobe. His past medical history is positive for diabetes and hypertension. He used to smoke but quit more than 30 years ago. He has been vaccinated back in February, with the [employer] vaccine, 2. Currently, he's on 4 L nasal cannula, IV heparin, and a saline IV at [facility] White count was 20.6, hemoglobin 15, hematocrit 43.4, and platelet count 473,000. D-dimer was 0.82. Sodium 129, potassium 6, chlorides 94, CO2 22, anion gap 13, BUN 54, and creatinine 1.51. Lactic acid was 2.2 and the repeat was also 2.2. N-terminal proBNP was normal. And troponin was negative. Chest x-ray shows diffuse bilateral infiltrates. CT angiogram was positive for diffuse extensive pulmonary infiltrates, and a possible right lower lobe pulmonary embolism. The patient is seen today 08/22/2021 in follow-up in the intensive care unit as a regular medical floor overflow. He is currently sitting up in bed. Awake and alert in no acute distress. He is maintaining O2 saturations in the 90s on 10 L high flow nasal cannula. He does desaturate into the low 80s with any significant activity. He is fairly comfortable at rest. He remains on a heparin drip for possible right lower lobe pulmonary emboli. He has 0.9 normal saline at 70 mL per hour. Follow-up chest x-ray reveals improving bilateral multifocal airspace and interstitial opacities. White count 9.5. Hemoglobin 11.6. Lymphs at 0.5. D-dimer 0.43. Sodium 134. Potassium 5.1. Creatinine 1.16. AST 48. ALT 64. Alk phos 168. LDH 72. C-reactive protein 15.9. He remains on bronchodilators, vitamin supplements, Decadron. 08/23/2021, the patient is being seen for a follow-up in intensive care unit. For now, the patient is on oxygen at 9 L high flow. Current pulse ox is ranging between 89-91%. As mentioned earlier, this patient has COVID 19 related pne umonia and the patient also being anticoagulated for a possible right lower lobe pulmonary embolism. IV fluids are still running at 70 mL an hour of normal saline. Earlier this morning at around 4:00, the patient had a bout of hypoglycemia and the sugar was 53. He was given D50 and subsequent blood sugars improved. Note that the patient is diabetic. He is breathing is labored and the patient gets short of breath with activity and while talking longer sentences. On his blood work today, is electrolytes are all normal, his LFTs are essentially stable and normal, inflammatory markers from yesterday was noted. LDH was 782 with a CRP of 15.9. The patient also remains on Decadron 6 mg IV every 24 hours. The patient is on anticoagulation with IV heparin. He is currently on Levemir insulin 15 units at bedtime and addition to a sliding scale coverage. IV fluids are running at 150 mL an hour. Noted the patient d-dimer has been essentially low. On 08/24/2021, the patient is slightly improved in terms of his oxygenation. Yesterday he was on 10 L and currently is down to 6 L about 2 by nasal cannula. His LDH level is also down to 636 and a CRP level is at extreme. Otherwise is l ess of the mother work essentially within normal limits. White cell count of 12.9 with a hemoglobin of 11.7 and platelet count of 343. Creatinine is stable at 1.09 and the potassium level is at 5.4. He has no specific complaints. Resting comfortably on a recliner chair. The patient was also given a dose of Lasix yesterday which improved his urination urine output. For now, the patient remains on Decadron 6 mg IV every 24 hours. The patient is on half-normal saline at rate of 50 mL an hour. The patient is also on Levemir insulin 8 units daily at bedtime along with NovoLog 2 units with meals and a sliding scale coverage. Anticoagulation is with Eliquis. 08/25/2001, I'm seeing the patient for a follow-up. He is improving slowly however he is not fully recovered yet. The patient was in a high flow of oxygen at 10 L and gradually was weaned down to 6 L and currently is down to 5 L of Oxymizer nasal cannula.. The patient has no specific complaints. Is able to walk in the room and go back and forth to the bathroom. He is on normal saline today to 50 mL an hour. He has been started on anticoagulation with Eliquis. Meanwhile, I have the patient is still on Decadron 6 mg IV every 24 hours. No significant complaints otherwise for now.On today's blood work, the hemoglobin is at 12.2 with a white cell count of 10.6, his d-dimer is currently down to 0.9, creatinine is at 1.28, sodium is at 132, his LDH level is lower and is currently down to 546 and a CRP level is down to 6. Repeat COVID 19 testing was negative. Objective - Vital Signs Vital signs: Vital Signs Temp 97.8 F 08/25/21 08:00 Pulse 93 08/25/21 08:00 Resp 18 08/25/21 08:00 BP 134/71 08/25/21 08:00 Pulse Ox 95 08/25/21 08:00 Intake & Output 08/24/21 08/25/21 08/25/21 18:59 06:59 18:59 Intake Total 1200 118 Output Total 1125 1800 Balance 75 -1800 118 Intake: Oral 1200 118 Output: Urine 1125 1800 Other: Voiding Method External Catheter - Exam GENERAL EXAM: Alert, oriented, very pleasant 70-year-old gentleman, on 5 L high flow nasal cannula, comfortable in no apparent distress. HEAD: Normocephalic. EYES: Normal reaction of pupils, equal size. NOSE: Clear with pink turbinates. THROAT: No erythema or exudates. NECK: No masses, no JVD. CHEST: No chest wall deformity. LUNGS: Equal air entry with coarse crackles in the bilateral bases. CVS: S1 and S2 normal with no audible murmur, regular rhythm. ABDOMEN: No hepatosplenomegaly, normal bowel sounds, no guarding or rigidity. SPINE: No scoliosis or deformity SKIN: No rashes CENTRAL NERVOUS SYSTEM: No focal deficits, tone is normal in all 4 extremities. EXTREMITIES: There is no peripheral edema. No clubbing, no cyanosis. Peripheral pulses are intact. - Labs CBC & Chem 7: 08/25/21 09:13 08/25/21 09:13 Labs: Abnormal Lab Results - Last 24 Hours (Table) 08/24/21 08/24/21 08/25/21 Range/Units 16:37 20:27 06:11 RBC (4.30-5.90) m/uL Hgb (13.0-17.5) gm/dL Hct (39.0-53.0) % D-Dimer (<0.60) mg/L FEU Sodium (137-145) mmol/L BUN (9-20) mg/dL Creatinine (0.66-1.25) mg/dL Glucose (74-99) mg/dL POC Glucose (mg/dL) 249 H 192 H 148 H (75-99) mg/dL ALT (4-49) U/L Alkaline Phosphatase (38-126) U/L C-Reactive Protein (<1.0) mg/dL Total Protein (6.3-8.2) g/dL Albumin (3.5-5.0) g/dL 08/25/21 08/25/21 08/25/21 Range/Units 09:13 09:13 09:13 RBC 4.13 L (4.30-5.90) m/uL Hgb 12.2 L (13.0-17.5) gm/dL Hct 36.9 L (39.0-53.0) % D-Dimer 0.98 H (<0.60) mg/L FEU Sodium 132 L (137-145) mmol/L BUN 35 H (9-20) mg/dL Creatinine 1.28 H (0.66-1.25) mg/dL Glucose 252 H (74-99) mg/dL POC Glucose (mg/dL) (75-99) mg/dL ALT 80 H (4-49) U/L Alkaline Phosphatase 201 H (38-126) U/L C-Reactive Protein 6.0 H (<1.0) mg/dL Total Protein 6.0 L (6.3-8.2) g/dL Albumin 2.7 L (3.5-5.0) g/dL Microbiology - Last 24 Hours (Table) 08/22/21 23:39 Gram Stain - Final Sputum Sputum Culture - Final 08/21/21 12:35 Blood Culture - Preliminary Blood No Growth after 72 hours Assessment and Plan Plan: 1 Acute hypoxemic respiratory failure secondary to COVID-19 pneumonia, complicated by right lower lobe pulmonary embolism. Vaccinated with [employer] 2 in February 2021.For now, the patient remains on Decadron 6 mg IV every 24 hours. Inflammatory markers are mildly elevated with a modest elevation of the LDH CRP of 15.9 and a low pro-calcitonin level of 0.26. Also had a suspected pulmonary embolism. Currently he is on Eliquis. Oxidation is improving and currently is down to 5 L of oxygen by nasal cannula. markers are also improving. Repeat COVID 19 testing is negative. The patient is currently on Decadron and patient is also being defibrillated with Eliquis. 2 Acute right lower lobe pulmonary emboli secondary to COVID-19 infection, Currently on oral Eliquis 3 Diabetes mellitus, currently on Levemir insulin 8 units daily at bedtime for blood sugar control, no further bouts of hypoglycemia 4 Hypertension 5 Hyperlipidemia 6 Osteoarthritis 7 History of obstructive sleep apnea, not utilizing CPAP 8 Gastroesophageal reflux disease 9 History of mild intermittent chronic bronchial asthma, currently on Symbicort as maintenance Plan: Keep oxygen at 5 L and gradually wean it down to maintain a saturation above 90% Continue Decadron for now Repeat COVID 19 testing is been negative obtain Dopplers of the lower extremities to rule out any DVTs. Echo is normal Reviews the Levemir insulin dose down to 8 units and continue covering with a scale coverage. Chest x-ray and labs reviewed Continue the current treatment plan Titrate the FiO2 as tolerated IV fluids down to 40 mL an hour We will continue to follow
[2021-08-25 12:46] LABS: Glucose,Whole Blood 233 mg/dL (75-99)
--- NOTE | 2021-08-25 13:32 | US ---
EXAMINATION TYPE: US venous doppler duplex LE DATE OF EXAM: 08/25/2021 1:20 PM COMPARISON: NONE CLINICAL HISTORY: elevated d-dimer. Covid +. On blood thinners. No leg pain or swelling. SIDE PERFORMED: Bilateral TECHNIQUE: The lower extremity deep venous system is examined utilizing real time linear array sonog venita with graded compression, doppler sonography and color-flow sonography. VESSELS IMAGED: Common Femoral Vein Deep Femoral Vein Greater Saphenous Vein * Femoral Vein Popliteal Vein Small Saphenous Vein * Proximal Calf Veins (* superficial vessels) Right Leg: Negative for DVT Left Leg: Negative for DVT IMPRESSION: 1. Bilateral lower extremity ultrasound negative for deep venous thrombosis.
[2021-08-25 16:50] LABS: Glucose,Whole Blood 259 mg/dL (75-99)
--- NOTE | 2021-08-25 17:58 | P.PN ---
<Bjorn Shelby - Last Filed: 08/25/21 17:37> Subjective Progress Note Date: 08/25/21 Hospital course: Patient is a 70-year-old male with a history of diabetes mellitus type 2, GERD, hypertension, dyslipidemia, and multiple other comorbid conditions. He presented to the emergency department on 08/21/21 with a chief complaint of worsening oxygenation after being diagnosed with COVID approximately one week prior to admission. Patient received outpatient treatment with 7 days of Decadron and was monitoring his own pulse oximetry at home and and found to be dropping in the low 70s so he came to the emergency department for treatment. Upon arrival to the emergency department patient was hypoxic at 76% room air and required 10 L O2 supplementation to maintain SpO2 of 90%. His chest x-ray revealed new bilateral multifocal and confluent opacities consistent with Covid 19 virus infection. CTA also completed concerning for right lower lobe pulmonary embolism with extensive pulmonary interstitial pneumonia. His EKG revealed sinus tachycardia at 126 bpm. His lab work was remarkable for leukocytosis with WBC count of 20, hyponatremia with sodium of 129, hyperkalemia with potassium of 6, lactic acid of 2.2 elevated renal function with BUN of 54, creatinine 1.54, and GFR of 46. Patient was given hyperkalemia cocktail consisting of Kayexalate, insulin, glucose, and sodium bicarb along with 1 L of IV fluids. He was admitted under our services with consultation to pulmonology. Physical examination: Patient seen and fully examined at bedside. He was on 5 L O2 via high flow nasal cannula. Heparin has been converted to oral anticoagulation with Eliquis for treatment of PE. Patient reports continued dyspnea with any exertion but reports currently feeling comfortable at rest. He denies having any headache, lightheadedness, dizziness, chest pain, palpitations, or experiencing any numbness/tingling/weakness in his extremities. General: Ill appearing, no distress, appears at stated age Derm: warm, dry Head: atraumatic, normocephalic, symmetric Eyes: EOMI, no lid lag, anicteric sclera Mouth: no lip lesion, mucus membranes moist Cardiovascular: S1S2 reg, no murmur, positive posterior tibial pulse bilateral, Lungs: Respirations even, regular, and unlabored on 5 L O2 via nasal cannula. Patient continues to have conversational dyspnea 5-6 word sentences. Lungs with coarse bibasilar crackles to mid and lower lungs. Abdominal: soft, nontender to palpation, no guarding, no appreciable organomegaly Ext: no gross muscle atrophy, no edema, no contractures Neuro: CN II-XI grossly intact, no focal neuro deficits Psych: Alert, oriented, appropriate affect Acute respiratory failure with hypoxia secondary to COVID 19 pneumonia in vaccinated individual Lactic acidosis Transaminitis -Oxygenation to be administered and titrated as needed to maintain SPO2 equal to or greater than 90% -Telemetry monitoring. -Continue trending inflammatory markers -Encourage Incentive Spirometry 10-15x hourly while awake -Steroids: Decadron 6 mg daily, day 4 of 10 -Continue vitamin C, Vitamin D, and Zinc. -Pulmonology following, appreciate further recommendations. -DVT prophylaxis with Eliquis -Strict Droplet plus Contact precautions Right lower lobe pulmonary artery embolsim -Continue anticoagulation with Eliquis -Echocardiogram revealed normal EF of 55-60% with no significant valvular abnormalities. TERESA vs CKD, baseline undetermined Hyponatremia Hyperkalemia -Likely secondary to dehydration and insensible water losses -Continue LR -Continue to hold Irbasartan -Patient with hx of Hyperkalemia in the past, has still been on irbasartan Type 2 insulin-dependent diabetes mellitus with episodes of hypoglycemia -Patient placed on glycemic protocol with NovoLog sliding scale along with continuation of fixed doses with meals and long-acting Levemir nightly. -Monitor blood glucose levels before meals and at bedtime -A1C 8.6 -Hold Prandin and victoza Hypertension Monitor vital signs and continue daily medication regimen, Irbasartan held secondary to hyperkalemia. Hyperlipidemia Continue daily medication regimen with atorvastatin. GERD Continuation of Pepcid daily. DVT prophylaxis: Eliquis Discussed with Patient and RN Anticipated discharge date:Clinical course to determine Anticipated discharge place: home A total of 40 minutes was spent on the care of this complex patient more than 50% of the time was spent in counseling and care coordination. Objective - Vital Signs Vital signs: Vital Signs Temp 97.7 F 08/25/21 04:00 Pulse 48 L 08/25/21 04:00 Resp 18 08/25/21 06:48 BP 164/88 08/25/21 04:00 Pulse Ox 98 08/25/21 06:48 Intake & Output 08/24/21 08/25/21 08/25/21 18:59 06:59 18:59 Intake Total 1200 Output Total 1125 1800 Balance 75 -1800 Intake: Oral 1200 Output: Urine 1125 1800 Other: Voiding Method External Catheter - Labs CBC & Chem 7: 08/25/21 09:13 08/25/21 09:13 Labs: Abnormal Lab Results - Last 24 Hours (Table) 08/24/21 08/24/21 08/24/21 Range/Units 08:55 08:55 08:55 WBC 12.9 H (3.8-10.6) k/uL RBC 3.83 L (4.30-5.90) m/uL Hgb 11.7 L (13.0-17.5) gm/dL Hct 33.3 L (39.0-53.0) % D-Dimer 1.00 H (<0.60) mg/L FEU Sodium 133 L (137-145) mmol/L Potassium 5.4 H (3.5-5.1) mmol/L BUN 26 H (9-20) mg/dL Glucose 105 H (74-99) mg/dL POC Glucose (mg/dL) (75-99) mg/dL AST 63 H (17-59) U/L ALT 91 H (4-49) U/L Alkaline Phosphatase 197 H (38-126) U/L Lactate Dehydrogenase 636 H (313-618) U/L C-Reactive Protein 16.0 H (<1.0) mg/dL Total Protein 6.1 L (6.3-8.2) g/dL Albumin 2.6 L (3.5-5.0) g/dL 08/24/21 08/24/21 08/24/21 Range/Units 11:36 16:37 20:27 WBC (3.8-10.6) k/uL RBC (4.30-5.90) m/uL Hgb (13.0-17.5) gm/dL Hct (39.0-53.0) % D-Dimer (<0.60) mg/L FEU Sodium (137-145) mmol/L Potassium (3.5-5.1) mmol/L BUN (9-20) mg/dL Glucose (74-99) mg/dL POC Glucose (mg/dL) 125 H 249 H 192 H (75-99) mg/dL AST (17-59) U/L ALT (4-49) U/L Alkaline Phosphatase (38-126) U/L Lactate Dehydrogenase (313-618) U/L C-Reactive Protein (<1.0) mg/dL Total Protein (6.3-8.2) g/dL Albumin (3.5-5.0) g/dL 08/25/21 Range/Units 06:11 WBC (3.8-10.6) k/uL RBC (4.30-5.90) m/uL Hgb (13.0-17.5) gm/dL Hct (39.0-53.0) % D-Dimer (<0.60) mg/L FEU Sodium (137-145) mmol/L Potassium (3.5-5.1) mmol/L BUN (9-20) mg/dL Glucose (74-99) mg/dL POC Glucose (mg/dL) 148 H (75-99) mg/dL AST (17-59) U/L ALT (4-49) U/L Alkaline Phosphatase (38-126) U/L Lactate Dehydrogenase (313-618) U/L C-Reactive Protein (<1.0) mg/dL Total Protein (6.3-8.2) g/dL Albumin (3.5-5.0) g/dL Microbiology - Last 24 Hours (Table) 08/21/21 12:35 Blood Culture - Preliminary Blood No Growth after 72 hours <Fly Dubon - Last Filed: 08/25/21 18:28> Subjective I am in agreement with assessment and plan as written above. Objective - Vital Signs Vital signs: Vital Signs Temp 97.8 F 08/25/21 08:00 Pulse 90 08/25/21 12:00 Resp 18 08/25/21 14:00 BP 173/84 08/25/21 12:00 Pulse Ox 96 08/25/21 12:00 Intake & Output 08/24/21 08/25/21 08/25/21 18:59 06:59 18:59 Intake Total 1200 1178 Output Total 1125 1800 1150 Balance 75 -1800 28 Intake: Oral 1200 1178 Output: Urine 1125 1800 1150 Other: Voiding Method External Catheter # Voids 300 - Labs CBC & Chem 7: 08/25/21 09:13 08/25/21 09:13 Labs: Abnormal Lab Results - Last 24 Hours (Table) 08/24/21 08/25/21 08/25/21 Range/Units 20:27 06:11 09:13 RBC 4.13 L (4.30-5.90) m/uL Hgb 12.2 L (13.0-17.5) gm/dL Hct 36.9 L (39.0-53.0) % D-Dimer (<0.60) mg/L FEU Sodium (137-145) mmol/L BUN (9-20) mg/dL Creatinine (0.66-1.25) mg/dL Glucose (74-99) mg/dL POC Glucose (mg/dL) 192 H 148 H (75-99) mg/dL ALT (4-49) U/L Alkaline Phosphatase (38-126) U/L C-Reactive Protein (<1.0) mg/dL Total Protein (6.3-8.2) g/dL Albumin (3.5-5.0) g/dL 08/25/21 08/25/21 08/25/21 Range/Units 09:13 09:13 12:41 RBC (4.30-5.90) m/uL Hgb (13.0-17.5) gm/dL Hct (39.0-53.0) % D-Dimer 0.98 H (<0.60) mg/L FEU Sodium 132 L (137-145) mmol/L BUN 35 H (9-20) mg/dL Creatinine 1.28 H (0.66-1.25) mg/dL Glucose 252 H (74-99) mg/dL POC Glucose (mg/dL) 233 H (75-99) mg/dL ALT 80 H (4-49) U/L Alkaline Phosphatase 201 H (38-126) U/L C-Reactive Protein 6.0 H (<1.0) mg/dL Total Protein 6.0 L (6.3-8.2) g/dL Albumin 2.7 L (3.5-5.0) g/dL 08/25/21 Range/Units 16:49 RBC (4.30-5.90) m/uL Hgb (13.0-17.5) gm/dL Hct (39.0-53.0) % D-Dimer (<0.60) mg/L FEU Sodium (137-145) mmol/L BUN (9-20) mg/dL Creatinine (0.66-1.25) mg/dL Glucose (74-99) mg/dL POC Glucose (mg/dL) 259 H (75-99) mg/dL ALT (4-49) U/L Alkaline Phosphatase (38-126) U/L C-Reactive Protein (<1.0) mg/dL Total Protein (6.3-8.2) g/dL Albumin (3.5-5.0) g/dL Microbiology - Last 24 Hours (Table) 08/21/21 12:35 Blood Culture - Preliminary Blood No Growth after 96 hours 08/22/21 23:39 Gram Stain - Final Sputum Sputum Culture - Final
[2021-08-25 20:04] LABS: Glucose,Whole Blood 384 mg/dL (75-99)
[2021-08-25] MEDS: diphenhydrAMINE ELIXIR 25 MG/10 ML CUP PO SCH (20:44)
[2021-08-25] MEDS: MELATONIN 5 MG TABLET PO SCH (20:45)
[2021-08-25] MEDS: INSULIN DETEMIR (LEVEMIR) 100 UNIT/ML SYR SQ SCH (20:45)
[2021-08-25 23:38] LABS: Glucose,Whole Blood 319 mg/dL (75-99)
[2021-08-26] MEDS: LACTATED RINGERS 1,000 ML IV SCH ×2 (04:59→06:29)
[2021-08-26 06:17] LABS: Glucose,Whole Blood 223 mg/dL (75-99)
[2021-08-26] MEDS: INSULIN ASPART (NovoLOG) 100 UNIT/ML VIAL SQ SCH ×6 (06:28→21:08)
[2021-08-26 07:44] LABS: HCT 36.8 % (39.0-53.0); HGB 12.4 gm/dL (13.0-17.5); MCH 29.3 pg (25.0-35.0); MCHC 33.7 g/dL (31.0-37.0); MCV 86.8 fL (80.0-100.0); Mean Platelet Volume 7.7; Platelet Count 394 k/uL (150-450); RBC 4.24 m/uL (4.30-5.90); RDW 12.7 % (11.5-15.5); WBC 13.9 k/uL (3.8-10.6)
[2021-08-26 07:57] LABS: Albumin 2.8 g/dL (3.5-5.0); Magnesium 1.3 mg/dL (1.6-2.3); Potassium 5.3 mmol/L (3.5-5.1); Total Bilirubin 0.6 mg/dL (0.2-1.3); Total Protein 6.4 g/dL (6.3-8.2)
[2021-08-26] MEDS: ALBUTEROL HFA INHALER INHALATION SCH ×4 (08:25→20:51)
[2021-08-26] MEDS: SYMBICORT 160-4.5 MCG INHALER INHALATION SCH ×2 (08:25→20:51)
[2021-08-26] MEDS: ZINC SULFATE 220 MG CAP PO SCH (09:12)
[2021-08-26] MEDS: dexAMETHasone 2 MG TAB PO SCH (09:12)
[2021-08-26] MEDS: FAMOTIDINE 20 MG TAB PO SCH (09:12)
[2021-08-26] MEDS: CHOLECALCIFEROL 25 MCG (1000 IU) TABLET PO SCH (09:12)
[2021-08-26] MEDS: guaiFENesin-Coden 100-10MG/5ML 10 ML CUP PO PRN ×2 (09:12→21:07)
[2021-08-26] MEDS: ATORVASTATIN 10 MG TAB PO SCH (09:12)
[2021-08-26] MEDS: ASCORBIC ACID 500 MG TAB PO SCH (09:13)
[2021-08-26] MEDS: APIXABAN 5 MG TAB PO SCH ×2 (09:13→21:07)
[2021-08-26] MEDS: MULTIVITAMINS, THERA 1 EACH TAB PO SCH (09:13)
[2021-08-26] MEDS: FLUTICASONE 50MCG/SPRAY NASAL 16GM EA NOSTRIL SCH (09:13)
[2021-08-26] MEDS: PANTOPRAZOLE 40 MG TABLET PO SCH (09:13)
[2021-08-26 09:23] LABS: C Reactive Protein 4.3 mg/dL (<1.0)
[2021-08-26 11:19] LABS: Glucose,Whole Blood 141 mg/dL (75-99)
--- NOTE | 2021-08-26 11:34 | P.PN ---
Subjective Progress Note Date: 08/26/21 Hospital course: Patient is a 70-year-old male with a history of diabetes mellitus type 2, GERD, hypertension, dyslipidemia, and multiple other comorbid conditions. He presented to the emergency department on 08/21/21 with a chief complaint of worsening oxygenation after being diagnosed with COVID approximately one week prior to admission. Patient received outpatient treatment with 7 days of Decadron and was monitoring his own pulse oximetry at home and and found to be dropping in the low 70s so he came to the emergency department for treatment. Upon arrival to the emergency department patient was hypoxic at 76% room air and required 10 L O2 supplementation to maintain SpO2 of 90%. His chest x-ray revealed new bilateral multifocal and confluent opacities consistent with Covid 19 virus infection. CTA also completed concerning for right lower lobe pulmonary embolism with extensive pulmonary interstitial pneumonia. His EKG revealed sinus tachycardia at 126 bpm. His lab work was remarkable for leukocytosis with WBC count of 20, hyponatremia with sodium of 129, hyperkalemia with potassium of 6, lactic acid of 2.2 elevated renal function with BUN of 54, creatinine 1.54, and GFR of 46. Patient was given hyperkalemia cocktail consisting of Kayexalate, insulin, glucose, and sodium bicarb along with 1 L of IV fluids. He was admitted under our services with consultation to pulmonology. Physical examination: Patient seen and fully examined at bedside. He is now down to 4 L O2 via nasal cannula and is doing well. Arrangements are being made to set up for home oxygen. We will plan on discharging tomorrow morning. PT/OT consulted to evaluate potential patient needs upon discharge. Patient remains on oral anticoagulation with Eliquis for treatment of his PE. Patient reports improvement in dyspnea with exertion and he continues to deny having any headache, lightheadedness, dizziness, chest pain, palpitations, or experiencing any numbness/tingling/weakness in his extremities. Patient reports continued dyspnea with any exertion but reports currently feeling comfortable at rest. He denies having any headache, lightheadedness, dizziness, chest pain, palpitations, or experiencing any numbness/tingling/weakness in his extremities. Morning labs reviewed showing mild leukocytosis with WBC count of 13.9, normocytic normochromic anemia with hemoglobin of 12.4, mild hyponatremia with sodium of 134, hyperkalemia with potassium of 5.3, prerenal azotemia with BUN of 36, hypomagnesemia with magnesium of 1.3, elevated ALT 94, and alkaline phosphatase 212. Inflammatory markers slightly improving with d-dimer 0.89, CRP 4.3, and LDH of 740. General: Ill appearing, no distress, appears at stated age Derm: warm, dry Head: atraumatic, normocephalic, symmetric Eyes: EOMI, no lid lag, anicteric sclera Mouth: no lip lesion, mucus membranes moist Cardiovascular: S1S2 reg, no murmur, positive posterior tibial pulse bilateral, Lungs: Respirations even, regular, and unlabored on 5 L O2 via nasal cannula. Patient continues to have conversational dyspnea 5-6 word sentences. Lungs with coarse bibasilar crackles to mid and lower lungs. Abdominal: soft, nontender to palpation, no guarding, no appreciable organomegaly Ext: no gross muscle atrophy, no edema, no contractures Neuro: CN II-XI grossly intact, no focal neuro deficits Psych: Alert, oriented, appropriate affect Acute respiratory failure with hypoxia secondary to COVID 19 pneumonia in vaccinated individual Lactic acidosis Transaminitis -Oxygenation to be administered and titrated as needed to maintain SPO2 equal to or greater than 90% -Telemetry monitoring. -Continue trending inflammatory markers -Encourage Incentive Spirometry 10-15x hourly while awake -Steroids: Decadron 6 mg daily, day 4 of 10 -Continue vitamin C, Vitamin D, and Zinc. -Pulmonology following, appreciate further recommendations. -DVT prophylaxis with Eliquis -Strict Droplet plus Contact precautions Right lower lobe pulmonary artery embolsim -Continue anticoagulation with Eliquis -Echocardiogram revealed normal EF of 55-60% with no significant valvular a bnormalities. Hypomagnesemia -Replaced, we will continue to monitor closely with repeat a.m. labs. TERESA vs CKD, baseline undetermined, improved Hyponatremia Hyperkalemia -Likely secondary to dehydration and insensible water losses -Continue LR -Continue to hold Irbasartan -Patient with hx of Hyperkalemia in the past, has still been on irbasartan Type 2 insulin-dependent diabetes mellitus with episodes of hypoglycemia -Patient placed on glycemic protocol with NovoLog sliding scale along with continuation of fixed doses with meals and long-acting Levemir nightly. -Monitor blood glucose levels before meals and at bedtime -A1C 8.6 -Hold Prandin and victoza Hypertension Monitor vital signs and continue daily medication regimen, Irbasartan held secondary to hyperkalemia. Hyperlipidemia Continue daily medication regimen with atorvastatin. GERD Continuation of Pepcid daily. DVT prophylaxis: Nathan Discussed with Patient and RN Anticipated discharge date: Likely tomorrow Anticipated discharge place: home A total of 40 minutes was spent on the care of this complex patient more than 50% of the time was spent in counseling and care coordination. Objective - Vital Signs Vital signs: Vital Signs Temp 98.1 F 08/26/21 08:00 Pulse 79 08/26/21 08:00 Resp 18 08/26/21 08:00 BP 153/75 08/26/21 08:00 Pulse Ox 94 L 08/26/21 08:00 Intake & Output 08/25/21 08/26/21 08/26/21 18:59 06:59 18:59 Intake Total 1178 360 Output Total 1150 2175 300 Balance 28 -2175 60 Weight 87 kg Intake: Oral 1178 360 Output: Urine 1150 2175 300 Other: Voiding Method Urinal # Voids 300 1 - Labs CBC & Chem 7: 08/26/21 07:21 08/26/21 07:21 Labs: Abnormal Lab Results - Last 24 Hours (Table) 08/25/21 08/25/21 08/25/21 Range/Units 12:41 16:49 19:58 WBC (3.8-10.6) k/uL RBC (4.30-5.90) m/uL Hgb (13.0-17.5) gm/dL Hct (39.0-53.0) % D-Dimer (<0.60) mg/L FEU Sodium (137-145) mmol/L Potassium (3.5-5.1) mmol/L BUN (9-20) mg/dL Glucose (74-99) mg/dL POC Glucose (mg/dL) 233 H 259 H 384 H (75-99) mg/dL Magnesium (1.6-2.3) mg/dL ALT (4-49) U/L Alkaline Phosphatase (38-126) U/L Lactate Dehydrogenase (313-618) U/L C-Reactive Protein (<1.0) mg/dL Albumin (3.5-5.0) g/dL 08/25/21 08/26/21 08/26/21 Range/Units 23:35 06:03 07:21 WBC 13.9 H (3.8-10.6) k/uL RBC 4.24 L (4.30-5.90) m/uL Hgb 12.4 L (13.0-17.5) gm/dL Hct 36.8 L (39.0-53.0) % D-Dimer (<0.60) mg/L FEU Sodium (137-145) mmol/L Potassium (3.5-5.1) mmol/L BUN (9-20) mg/dL Glucose (74-99) mg/dL POC Glucose (mg/dL) 319 H 223 H (75-99) mg/dL Magnesium (1.6-2.3) mg/dL ALT (4-49) U/L Alkaline Phosphatase (38-126) U/L Lactate Dehydrogenase (313-618) U/L C-Reactive Protein (<1.0) mg/dL Albumin (3.5-5.0) g/dL 08/26/21 08/26/21 08/26/21 Range/Units 07:21 07:21 11:18 WBC (3.8-10.6) k/uL RBC (4.30-5.90) m/uL Hgb (13.0-17.5) gm/dL Hct (39.0-53.0) % D-Dimer 0.89 H (<0.60) mg/L FEU Sodium 134 L (137-145) mmol/L Potassium 5.3 H (3.5-5.1) mmol/L BUN 36 H (9-20) mg/dL Glucose 127 H (74-99) mg/dL POC Glucose (mg/dL) 141 H (75-99) mg/dL Magnesium 1.3 L (1.6-2.3) mg/dL ALT 94 H (4-49) U/L Alkaline Phosphatase 212 H (38-126) U/L Lactate Dehydrogenase 740 H (313-618) U/L C-Reactive Protein 4.3 H (<1.0) mg/dL Albumin 2.8 L (3.5-5.0) g/dL Microbiology - Last 24 Hours (Table) 08/21/21 12:35 Blood Culture - Preliminary Blood No Growth after 96 hours 08/22/21 23:39 Gram Stain - Final Sputum Sputum Culture - Final
[2021-08-26] MEDS: MAGNESIUM SULFATE-D5W PMX 1 GM in DEXTROSE/WATER 1 100ML.BAG IVPB SCH ×4 (13:04→21:09)
[2021-08-26 13:27] VITALS: BMI 27.5
[2021-08-26 16:43] LABS: Glucose,Whole Blood 307 mg/dL (75-99)
--- NOTE | 2021-08-26 17:58 | P.PN ---
Subjective Progress Note Date: 08/26/21 70-year-old male, who is seen in the emergency department, on August 21. He came in with complaints of shortness of breath. He's been sick for at least 2 weeks maybe longer. He initially developed cold symptoms. He apparently tested positive for coronavirus 9 days ago. He had a cough or chest congestion, and minimal yellow phlegm production. He apparently is been monitoring his oxygen at home, and over the last 3 days, his saturations dropped into the 70s. His daughter who is a nurse, told him to get into the emergency room to be evaluated. In addition, the patient has chest congestion, fever, and significant fatigue and weakness. He complains of diffuse muscle aches. He denied any chest pain or chest discomfort. He was given Decadron is been taking over the last 7 days. He also has been using breathing treatments at home with both albuterol sulfate and ipratropium bromide. The patient was evaluated in the emergency room, was admitted with a diagnosis of coronavirus associated pneumonia, and a CT angiogram showed a pulmonary embolism in the right lower lobe. His past medical history is positive for diabetes and hypertension. He used to smoke but quit more than 30 years ago. He has been vaccinated back in February, with the [employer] vaccine, 2. Currently, he's on 4 L nasal cannula, IV heparin, and a saline IV at [facility]. White count was 20.6, hemoglobin 15, hematocrit 43.4, and platelet count 473,000. D-dimer was 0.82. Sodium 129, potassium 6, chlorides 94, CO2 22, anion gap 13, BUN 54, and creatinine 1.51. Lactic acid was 2.2 and the repeat was also 2.2. N-terminal proBNP was normal. And troponin was negative. Chest x-ray shows diffuse bilateral infiltrates. CT angiogram was positive for diffuse extensive pulmonary infiltrates, and a possible right lower lobe pulmonary embolism. The patient is seen today 08/22/2021 in follow-up in the intensive care unit as a regular medical floor overflow. He is currently sitting up in bed. Awake and alert in no acute distress. He is maintaining O2 saturations in the 90s on 10 L high flow nasal cannula. He does desaturate into the low 80s with any significant activity. He is fairly comfortable at rest. He remains on a heparin drip for possible right lower lobe pulmonary emboli. He has 0.9 normal saline at 70 mL per hour. Follow-up chest x-ray reveals improving bilateral multifocal airspace and interstitial opacities. White count 9.5. Hemoglobin 11.6. Lymphs at 0.5. D-dimer 0.43. Sodium 134. Potassium 5.1. Creatinine 1.16. AST 48. ALT 64. Alk phos 168. LDH 72. C-reactive protein 15.9. He remains on bronchodilators, vitamin supplements, Decadron. 08/23/2021, the patient is being seen for a follow-up in intensive care unit. For now, the patient is on oxygen at 9 L high flow. Current pulse ox is ranging between 89-91%. As mentioned earlier, this patient has COVID 19 related pne umonia and the patient also being anticoagulated for a possible right lower lobe pulmonary embolism. IV fluids are still running at 70 mL an hour of normal saline. Earlier this morning at around 4:00, the patient had a bout of hypoglycemia and the sugar was 53. He was given D50 and subsequent blood sugars improved. Note that the patient is diabetic. He is breathing is labored and the patient gets short of breath with activity and while talking longer sentences. On his blood work today, is electrolytes are all normal, his LFTs are essentially stable and normal, inflammatory markers from yesterday was noted. LDH was 782 with a CRP of 15.9. The patient also remains on Decadron 6 mg IV every 24 hours. The patient is on anticoagulation with IV heparin. He is currently on Levemir insulin 15 units at bedtime and addition to a sliding scale coverage. IV fluids are running at 150 mL an hour. Noted the patient d-dimer has been essentially low. On 08/24/2021, the patient is slightly improved in terms of his oxygenation. Yesterday he was on 10 L and currently is down to 6 L about 2 by nasal cannula. His LDH level is also down to 636 and a CRP level is at extreme. Otherwise is l ess of the mother work essentially within normal limits. White cell count of 12.9 with a hemoglobin of 11.7 and platelet count of 343. Creatinine is stable at 1.09 and the potassium level is at 5.4. He has no specific complaints. Resting comfortably on a recliner chair. The patient was also given a dose of Lasix yesterday which improved his urination urine output. For now, the patient remains on Decadron 6 mg IV every 24 hours. The patient is on half-normal saline at rate of 50 mL an hour. The patient is also on Levemir insulin 8 units daily at bedtime along with NovoLog 2 units with meals and a sliding scale coverage. Anticoagulation is with Eliquis. 08/25/2001, I'm seeing the patient for a follow-up. He is improving slowly however he is not fully recovered yet. The patient was in a high flow of oxygen at 10 L and gradually was weaned down to 6 L and currently is down to 5 L of Oxymizer nasal cannula.. The patient has no specific complaints. Is able to walk in the room and go back and forth to the bathroom. He is on normal saline today to 50 mL an hour. He has been started on anticoagulation with Eliquis. Meanwhile, I have the patient is still on Decadron 6 mg IV every 24 hours. No significant complaints otherwise for now.On today's blood work, the hemoglobin is at 12.2 with a white cell count of 10.6, his d-dimer is currently down to 0.9, creatinine is at 1.28, sodium is at 132, his LDH level is lower and is currently down to 546 and a CRP level is down to 6. Repeat COVID 19 testing was negative. 08/26/2021, the patient is being seen for a follow-up. On today's evaluation, the patient is feeling even better. He thinks that he is recovering. His b reathing is easier and the patient is currently on oxygen and this was weaned down to 3 L per minute nasal cannula. He has no specific complaints. No chest pain. No shortness of breath and altered mentation. He remains on Decadron. The patient's white cell count today is at 15.9 with a hemoglobin of 12.4. The d-dimer is at 0.8. Renal function is stable with a creatinine of 1.2. LDH level is at 740. Sugars slightly elevated on today's evaluation. Sodium level is at 134 with a potassium level of 5.3. The patient is on Symbicort. The patient is on Decadron 6 mg by mouth daily. The patient is on Levemir insulin 8 units along with NovoLog coverage with meals and a sliding scale coverage. He remains on anticoagulation and the patient remains on 10 mg of Eliquis twice a day that was started on 08/23/2021 and this will be ultimately switched to 5 mg by mouth twice a day regarding a pulmonary embolism in the right lower lobe. Objective - Vital Signs Vital signs: Vital Signs Temp 98.1 F 08/26/21 08:00 Pulse 79 08/26/21 16:00 Resp 22 08/26/21 16:00 BP 143/81 08/26/21 16:00 Pulse Ox 97 08/26/21 16:00 Intake & Output 08/25/21 08/26/21 08/26/21 18:59 06:59 18:59 Intake Total 1178 1080 Output Total 1150 2175 1475 Balance 28 -5 -395 Weight 87 kg 87 kg Intake: Oral 1178 1080 Output: Urine 1150 2175 1475 Other: Voiding Method Urinal # Voids 300 1 - Exam GENERAL EXAM: Alert, oriented, very pleasant 70-year-old gentleman, on 3 L high flow nasal cannula, comfortable in no apparent distress. HEAD: Normocephalic. EYES: Normal reaction of pupils, equal size. NOSE: Clear with pink turbinates. THROAT: No erythema or exudates. NECK: No masses, no JVD. CHEST: No chest wall deformity. LUNGS: Equal air entry with coarse crackles in the bilateral bases. CVS: S1 and S2 normal with no audible murmur, regular rhythm. ABDOMEN: No hepatosplenomegaly, normal bowel sounds, no guarding or rigidity. SPINE: No scoliosis or deformity SKIN: No rashes CENTRAL NERVOUS SYSTEM: No focal deficits, tone is normal in all 4 extremities. EXTREMITIES: There is no peripheral edema. No clubbing, no cyanosis. Peripheral pulses are intact. - Labs CBC & Chem 7: 08/26/21 07:21 08/26/21 07:21 Labs: Abnormal Lab Results - Last 24 Hours (Table) 08/25/21 08/25/21 08/26/21 Range/Units 19:58 23:35 06:03 WBC (3.8-10.6) k/uL RBC (4.30-5.90) m/uL Hgb (13.0-17.5) gm/dL Hct (39.0-53.0) % D-Dimer (<0.60) mg/L FEU Sodium (137-145) mmol/L Potassium (3.5-5.1) mmol/L BUN (9-20) mg/dL Glucose (74-99) mg/dL POC Glucose (mg/dL) 384 H 319 H 223 H (75-99) mg/dL Magnesium (1.6-2.3) mg/dL ALT (4-49) U/L Alkaline Phosphatase (38-126) U/L Lactate Dehydrogenase (313-618) U/L C-Reactive Protein (<1.0) mg/dL Albumin (3.5-5.0) g/dL 08/26/21 08/26/21 08/26/21 Range/Units 07:21 07:21 07:21 WBC 13.9 H (3.8-10.6) k/uL RBC 4.24 L (4.30-5.90) m/uL Hgb 12.4 L (13.0-17.5) gm/dL Hct 36.8 L (39.0-53.0) % D-Dimer 0.89 H (<0.60) mg/L FEU Sodium 134 L (137-145) mmol/L Potassium 5.3 H (3.5-5.1) mmol/L BUN 36 H (9-20) mg/dL Glucose 127 H (74-99) mg/dL POC Glucose (mg/dL) (75-99) mg/dL Magnesium 1.3 L (1.6-2.3) mg/dL ALT 94 H (4-49) U/L Alkaline Phosphatase 212 H (38-126) U/L Lactate Dehydrogenase 740 H (313-618) U/L C-Reactive Protein 4.3 H (<1.0) mg/dL Albumin 2.8 L (3.5-5.0) g/dL 08/26/21 08/26/21 Range/Units 11:18 16:41 WBC (3.8-10.6) k/uL RBC (4.30-5.90) m/uL Hgb (13.0-17.5) gm/dL Hct (39.0-53.0) % D-Dimer (<0.60) mg/L FEU Sodium (137-145) mmol/L Potassium (3.5-5.1) mmol/L BUN (9-20) mg/dL Glucose (74-99) mg/dL POC Glucose (mg/dL) 141 H 307 H (75-99) mg/dL Magnesium (1.6-2.3) mg/dL ALT (4-49) U/L Alkaline Phosphatase (38-126) U/L Lactate Dehydrogenase (313-618) U/L C-Reactive Protein (<1.0) mg/dL Albumin (3.5-5.0) g/dL Microbiology - Last 24 Hours (Table) 08/21/21 12:35 Blood Culture - Preliminary Blood No Growth after 120 hours Assessment and Plan Plan: 1 Acute hypoxemic respiratory failure secondary to COVID-19 pneumonia, complicated by right lower lobe pulmonary embolism. Vaccinated with Pfizer 2 in February 2021.For now, the patient remains on Decadron 6 mg IV every 24 hours. Inflammatory markers are mildly elevated with a modest elevation of the LDH CRP of 15.9 and a low pro-calcitonin level of 0.26. Also had a suspected pulmonary embolism. Currently he is on Eliquis. Oxidation is improving and currently is down to 3 L of oxygen by nasal cannula. markers are also improving. Repeat COVID 19 testing is negative. The patient is currently on Decadron and patient is also being treated with Eliquis. Clinically is feeling better. Is less short of breath. His oxygenation is also improved and the patient is currently on 3 L about 2 by nasal cannula. No new complaints otherwise for now. 2 Acute right lower lobe pulmonary emboli secondary to COVID-19 infection, Currently on oral Eliquis 3 Diabetes mellitus, currently on Levemir insulin 8 units daily at bedtime for blood sugar control, no further bouts of hypoglycemia 4 Hypertension 5 Hyperlipidemia 6 Osteoarthritis 7 History of obstructive sleep apnea, not utilizing CPAP 8 Gastroesophageal reflux disease 9 History of mild intermittent chronic bronchial asthma, currently on Symbicort as maintenance Plan: Continue weaning the FiO2, currently on 3 L Continue Decadron for now Repeat COVID 19 testing is been negative obtain Dopplers of the lower extremities to rule out any DVTs. Echo is normal Reviews the Levemir insulin dose down to 8 units and continue covering with a scale coverage. Chest x-ray and labs reviewed Continue the current treatment plan IV fluids down to 40 mL an hour We will continue to follow
[2021-08-26 20:36] LABS: Glucose,Whole Blood 272 mg/dL (75-99)
[2021-08-26] MEDS: diphenhydrAMINE ELIXIR 25 MG/10 ML CUP PO SCH (21:07)
[2021-08-26] MEDS: MELATONIN 5 MG TABLET PO SCH (21:07)
[2021-08-26] MEDS: INSULIN DETEMIR (LEVEMIR) 100 UNIT/ML SYR SQ SCH (21:08)
[2021-08-27 03:51] VITALS: TEMP 98.2
[2021-08-27] MEDS: LACTATED RINGERS 1,000 ML IV SCH (05:18)
[2021-08-27 06:16] LABS: Glucose,Whole Blood 283 mg/dL (75-99)
[2021-08-27] MEDS: INSULIN ASPART (NovoLOG) 100 UNIT/ML VIAL SQ SCH ×3 (06:25→12:42)
[2021-08-27] MEDS: PANTOPRAZOLE 40 MG TABLET PO SCH (09:04)
[2021-08-27] MEDS: dexAMETHasone 2 MG TAB PO SCH (09:04)
[2021-08-27] MEDS: ASCORBIC ACID 500 MG TAB PO SCH (09:04)
[2021-08-27] MEDS: ZINC SULFATE 220 MG CAP PO SCH (09:04)
[2021-08-27] MEDS: APIXABAN 5 MG TAB PO SCH (09:04)
[2021-08-27] MEDS: ATORVASTATIN 10 MG TAB PO SCH (09:05)
[2021-08-27] MEDS: MULTIVITAMINS, THERA 1 EACH TAB PO SCH (09:05)
[2021-08-27] MEDS: CHOLECALCIFEROL 25 MCG (1000 IU) TABLET PO SCH (09:05)
[2021-08-27] MEDS: FAMOTIDINE 20 MG TAB PO SCH (09:06)
[2021-08-27] MEDS: FLUTICASONE 50MCG/SPRAY NASAL 16GM EA NOSTRIL SCH (09:07)
[2021-08-27 09:12] VITALS: PULSE 70
[2021-08-27] MEDS: SYMBICORT 160-4.5 MCG INHALER INHALATION SCH (09:38)
[2021-08-27] MEDS: ALBUTEROL HFA INHALER INHALATION SCH ×2 (09:38→12:20)
[2021-08-27 11:57] LABS: Calcium 9.3 mg/dL (8.4-10.2); Potassium 5.9 mmol/L (3.5-5.1)
[2021-08-27 12:07] LABS: Glucose,Whole Blood 179 mg/dL (75-99)
[2021-08-27 12:47] VITALS: BP 150/70; RESP 12
--- NOTE | 2021-08-27 17:14 | P.DS ---
Providers Date of admission: 08/21/21 15:40 Expected date of discharge: 08/27/21 Attending physician: Amber Hernandez DO Consults: 08/21/21 15:39 Consult Physician Routine Consulting Provider: Humble Taylor Reason/Comments: Covid pneumonia, resp failure Do you want consulting provider notified?: Yes Primary care physician: June Crowley MD Hospital Course: Discharge Diagnosis: Acute respiratory failure with hypoxia secondary to COVID 19 pneumonia in vaccinated individual Lactic acidosis Transaminitis Right lower lobe pulmonary artery embolsim, Continue anticoagulation with Eliquis Hypomagnesemia, replaced. Follow-up with outpatient labs in 3 days, results to PCP. TERESA vs CKD, baseline undetermined, improved Hyponatremia Hyperkalemia, improved potassium 5.3. Irbesartan discontinued. Patient to follow-up with outpatient labs in 3 days, results to PCP. Type 2 insulin-dependent diabetes mellitus with episodes of hypoglycemia Hypertension Hyperlipidemia GERD Hospital Course: Patient is a 70-year-old male with a history of diabetes mellitus type 2, GERD, hypertension, dyslipidemia, and multiple other comorbid conditions. He presented to the emergency department on 08/21/21 with a chief complaint of worsening oxygenation after being diagnosed with COVID approximately one week prior to admission. Patient received outpatient treatment with 7 days of Decadron and was monitoring his own pulse oximetry at home and and found to be dropping in the low 70s so he came to the emergency department for treatment. Upon arrival to the emergency department patient was hypoxic at 76% room air and required 10 L O2 supplementation to maintain SpO2 of 90%. His chest x-ray revealed new bilateral multifocal and confluent opacities consistent with Covid 19 virus infection. CTA also completed concerning for right lower lobe pulmonary embolism with extensive pulmonary interstitial pneumonia. He was started on heparin infusion. His EKG revealed sinus tachycardia at 126 bpm. His lab work was remarkable for leukocytosis with WBC count of 20, hyponatremia with sodium of 129, hyperkalemia with potassium of 6, lactic acid of 2.2 elevated renal function with BUN of 54, creatinine 1.54, and GFR of 46. Patient was given hyperkalemia cocktail consisting of Kayexalate, insulin, glucose, and sodium bicarb along with 1 L of IV fluids. He was admitted under our services with consultation to pulmonology. Over 6 day hospitalization patient's condition improved. Patient reports improvement of this of breath and cough. He denied any chest pain, palpitations, or experiencing any numbness/tingling/weakness in his extremities. Oxygen was weaned down to 3 L. Patient resting oxygenation 3 L and 4 L with ambulation. Arrangements have been made for delivery of home oxygen. Most recent potassium 5.3, patient does have a history of hyperkalemia and long-standing use of irbasartan, patient's Irbasartan has been discontinued. Patient educated on importance of not resuming this medication and that he will need to follow up with repeat blood work in 3 days with results to be sent to PCP. Patient verbalized understanding of discharge instructions. He will be discharged home on remainder of 5 day course of Decadron along with vitamin C, vitamin D, and zinc. Patient to continue treatment of right lower lobe pulmonary emboli anticoagulant Eliquis. Physical examination: General: Ill appearing, no distress, appears at stated age Derm: warm, dry Head: atraumatic, normocephalic, symmetric Eyes: EOMI, no lid lag, anicteric sclera Mouth: no lip lesion, mucus membranes moist Cardiovascular: S1S2 reg, no murmur, positive posterior tibial pulse bilateral, Lungs: Respirations even, regular, and unlabored on 3 L O2 via nasal cannula. Lungs with soft bibasilar crackles to mid and lower lungs. Abdominal: soft, nontender to palpation, no guarding, no appreciable organomegaly Ext: no gross muscle atrophy, no edema, no contractures Neuro: CN II-XI grossly intact, no focal neuro deficits Psych: Alert, oriented, appropriate affect A total of 45 minutes of time were spent preparing this complex discharge summary. Patient Condition at Discharge: Stable Plan - Discharge Summary Discharge Rx Participant: Yes New Discharge Prescriptions: New Benzonatate [Tessalon Perles] 200 mg PO TID PRN #30 cap PRN Reason: Cough Ascorbic Acid [Vitamin C] 1,000 mg PO DAILY 30 Days #60 tab Apixaban [Eliquis Starter Pack (for VTE)] 5 - 10 mg PO DIRECTED 30 Days #1 each Zinc Sulfate [Orazinc] 220 mg PO DAILY 30 Days #30 cap Albuterol Inhaler [Ventolin Hfa Inhaler] 2 puff INHALATION RT-QID PRN #1 inh PRN Reason: Shortness Of Breath Or Wheezing Continue Omeprazole 20 mg PO DAILY Liraglutide [Victoza 3-Jamey] 1.8 mg SQ DAILY traMADol HCL [Ultram] 50 mg PO Q6H PRN PRN Reason: Pain Multivitamins, Thera [Multivitamin (formulary)] 1 tab PO DAILY Cholecalciferol [Vitamin D3 (25 Mcg = 1000 Iu)] 1,000 unit PO DAILY Insulin Degludec [Tresiba] 15 units SQ HS Repaglinide [Prandin] 1 mg PO TID Budesonide/Formoterol Fumarate [Symbicort 160-4.5 Mcg Inhaler] 2 puff INHALATION RT-BID Turmeric Root Extract [Turmeric] 500 mg PO DAILY Ipratropium-Albuterol Nebulize [Duoneb 0.5 mg-3 mg/3 ml Soln] 3 ml INHALATION RT-QID Fluticasone Nasal [place] [Flonase Nasal [place]] 1 spr EA NOSTRIL DAILY Atorvastatin [Lipitor] 10 mg PO DAILY Acetaminophen [Tylenol Arthritis] 1,300 mg PO Q8H PRN PRN Reason: Pain Dexamethasone 6 mg PO DAILY 5 Days #5 tab Discontinued Irbesartan [Avapro] 150 mg PO DAILY Doxycycline Hyclate 100 mg PO BID Discharge Medication List Cholecalciferol [Vitamin D3 (25 Mcg = 1000 Iu)] 1,000 unit PO DAILY 12/08/17 [History] Liraglutide [Victoza 3-Jamey] 1.8 mg SQ DAILY 12/08/17 [History] Multivitamins, Thera [Multivitamin (formulary)] 1 tab PO DAILY 12/08/17 [History] Omeprazole 20 mg PO DAILY 12/08/17 [History] traMADol HCL [Ultram] 50 mg PO Q6H PRN 12/08/17 [History] Insulin Degludec [Tresiba] 15 units SQ HS 11/28/18 [History] Acetaminophen [Tylenol Arthritis] 1,300 mg PO Q8H PRN 08/21/21 [History] Atorvastatin [Lipitor] 10 mg PO DAILY 08/21/21 [History] Budesonide/Formoterol Fumarate [Symbicort 160-4.5 Mcg Inhaler] 2 puff INHALATION RT-BID 08/21/21 [History] Fluticasone Nasal [place] [Flonase Nasal [place]] 1 spr EA NOSTRIL DAILY 08/21/21 [History] Ipratropium-Albuterol Nebulize [Duoneb 0.5 mg-3 mg/3 ml Soln] 3 ml INHALATION RT-QID 08/21/21 [History] Repaglinide [Prandin] 1 mg PO TID 08/21/21 [History] Turmeric Root Extract [Turmeric] 500 mg PO DAILY 08/21/21 [History] Albuterol Inhaler [Ventolin Hfa Inhaler] 2 puff INHALATION RT-QID PRN #1 inh 08/27/21 [Rx] Apixaban [Eliquis Starter Pack (for VTE)] 5 - 10 mg PO DIRECTED 30 Days #1 each 08/27/21 [Rx] Ascorbic Acid [Vitamin C] 1,000 mg PO DAILY 30 Days #60 tab 08/27/21 [Rx] Benzonatate [Tessalon Perles] 200 mg PO TID PRN #30 cap 08/27/21 [Rx] Dexamethasone 6 mg PO DAILY 5 Days #5 tab 08/27/21 [Rx] Zinc Sulfate [Orazinc] 220 mg PO DAILY 30 Days #30 cap 08/27/21 [Rx] Follow up Appointment(s)/Referral(s): [facility],Equipment [NON-STAFF] - June Crowley MD [Primary Care Provider] - 1-2 days Adrianna Holguin MD [STAFF PHYSICIAN] - 1 Week Ambulatory/Diagnostic Orders: Basic Metabolic Panel [LAB.AMB] Time Frame: 3 Days, Location: None Selected Magnesium [LAB.AMB] Location: None Selected Patient Instructions/Handouts: Coronavirus Disease 2019 (COVID-19) Activity/Diet/Wound Care/Special Instructions: Activity: As tolerated. Take breaks as needed. Diet: Heart healthy and carb consistent diet. Avoid salts, or foods with hidden salts such as canned or boxed foods and frozen dinners. Extra salt makes your heart work harder and traps the fluid in your body for longer. Special Instructions: Take all of your medications as directed and remember to keep all of your doctor's appointments and follow-up as needed. You are being discharged home on home oxygen and it is important to wear this at all times until further directed by your securities broker on follow-up appointment. Thank you for allowing us to participate in your care, it was truly a pleasure having you for our patient!!! Discharge Disposition: HOME SELF-CARE
== END 2021-08-27 13:41 | disposition home or self-care (01) | DRG 177 ==
LOC: EC 11:39 → 3SCARD 15:40 → 2SICU 22:50 → 3SCARD 08-23 16:13 → 6NMEDSUR 08-27 05:38 → 3SCARD 08-27 05:43
PROVIDERS: ADMIT Internal Medicine; ATTEND Internal Medicine
PROC: 3E0333Z Introduction of Anti-inflammatory into Peripheral Vein, Percutaneous Approach (ICD-10-PCS; principal; 2021-08-21)
PROC: 5A0945A Assistance with Respiratory Ventilation, 24-96 Consecutive Hours, High Flow/Velocity Cannula (ICD-10-PCS; 2021-08-21)
DX: U07.1 COVID-19 (principal); I26.99 Other pulmonary embolism without acute cor pulmonale; J12.82 Pneumonia due to coronavirus disease 2019; J96.01 Acute respiratory failure with hypoxia; E87.1 Hypo-osmolality and hyponatremia; E87.2 Acidosis; N17.9 Acute kidney failure, unspecified; E11.649 Type 2 diabetes mellitus with hypoglycemia without coma; E78.5 Hyperlipidemia, unspecified; E83.42 Hypomagnesemia; E86.0 Dehydration; E87.5 Hyperkalemia; F43.10 Post-traumatic stress disorder, unspecified; G47.33 Obstructive sleep apnea (adult) (pediatric); I10 Essential (primary) hypertension; J45.909 Unspecified asthma, uncomplicated; K21.9 Gastro-esophageal reflux disease without esophagitis; M19.90 Unspecified osteoarthritis, unspecified site; T38.0X5A Adverse effect of glucocorticoids and synthetic analogues, initial encounter; Z79.01 Long term (current) use of anticoagulants; Z79.4 Long term (current) use of insulin; Z79.51 Long term (current) use of inhaled steroids; Z79.899 Other long term (current) drug therapy; Z82.0 Family history of epilepsy and other diseases of the nervous system; Z83.3 Family history of diabetes mellitus; Z86.73 Personal history of transient ischemic attack (TIA), and cerebral infarction without residual deficits; Z87.891 Personal history of nicotine dependence; Z88.2 Allergy status to sulfonamides; Z88.1 Allergy status to other antibiotic agents; R00.0 Tachycardia, unspecified; R74.01 Elevation of levels of liver transaminase levels; D72.829 Elevated white blood cell count, unspecified; E11.22 Type 2 diabetes mellitus with diabetic chronic kidney disease; N18.9 Chronic kidney disease, unspecified
CPT/HCPCS: 36415; 71045; 71275; 80048; 80053; 82728; 83036; 83605; 83615; 83735; 83880; 84100; 84145; 84484; 85025; 85027; 85379; 85610; 85730; 86140; 87040; 87070; 87205; 87635; 93005; 93306; 93970; 94640; 94760; 96374; 99285

== ENCOUNTER → 2022-06-27 | Outpatient (CLI) | payer MEDICARE, BC ==
--- NOTE | 2022-06-27 08:01 | US ---
EXAMINATION TYPE: US abdomen complete DATE OF EXAM: 06/27/2022 COMPARISON: CT CLINICAL HISTORY: E87.5 hyperkalemia. Hyperkalemia. Hx cholecystectomy. TECHNIQUE: Multiple sonographic images of the abdomen are obtained. FINDINGS: EXAM MEASUREMENTS: Liver Length: 13.4 cm CBD: Obscured Spleen: 10.4 cm Right Kidney: 10.7 x 6.1 x 5.9 cm Left Kidney: 11.2 x 5.1 x 5.2 cm VALUATION CONSULTANT NOTES: Exam is very limited due to gas and body habitus. Pancreas: Obscured. Liver: Limited. Images of the right lobe were taken intercostally. Appears very coarse in echotexture with increased attenuation. Increased echogenicity. Gallbladder: Surgically absent Evidence for sonographic Lee's sign: No CBD: Obscured Spleen: Limited Right Kidney: No hydronephrosis or masses seen Left Kidney: Lobulated contour. No hydronephrosis or masses seen Upper IVC: Appears wnl Abd Aorta: Limited visibility. Iliacs were obscured. Prox appears ectatic. IMPRESSION: 1. Hepatocellular disease commonly relating to hepatic steatosis. 2. Retained lobulations of the kidneys.
== END | disposition home or self-care (01) ==
LOC: RADUSWWP 06:46
PROVIDERS: ATTEND Family Medicine
DX: K76.0 Fatty (change of) liver, not elsewhere classified (principal); E87.5 Hyperkalemia
CPT/HCPCS: 76700